=== PATIENT | male | born 1930 | race Caucasian/White ===

== ENCOUNTER 2017-11-30 01:12 | Inpatient (IN) | payer MEDICARE ==
[~2017-11-30] VITALS: Ht 182.9 cm; Wt 80.7 kg
[~2017-11-30 01:12] MED LIST: ACETAMINOPHEN650 M5 PO; ACIDOPHILUS LACT1 GM PO; AMLODIPINE BESYL5 MG PO; APAP500; ASPIR 8181 MG PO; ASPIRIN81 M2 PO; ATORVASTATIN CA40 MG PO; CATHFLO ACT2 MG/VIA1 IV; CEFTRIAXONE2 G1 IVPB; CIPRO500 MG; COLACE100 MG PO; COUMADIN 1MG TAB1 M1 PO; COUMADIN 2 MG TA2 M1 PO; COUMADIN 2.5MG2.5 M1 PO; COUMADIN 3 MG TA3 MG PO; COZAAR 50 MG TA50 M1 PO; DIFLUCAN200 MG IVPB; DIFLUCAN200 MG PO; EFFIENT10 MG PO; ELIQUIS5 MG PO; FENOFIBRATE160 MG PO; FINASTERIDE5 MG PO; FISH OIL 1,0001 EAC5 PO; FISH OIL 1,001000 M2 PO; FUROSEMIDE 20 M20 MG PO; FUROSEMIDE 40 M40 M1 PO; GLUCOPHAGE1000 MG PO; GLUCOPHAGE500 MG PO; HEALTHYLAX17 GM PO; KEFLEX500 MG PO; LEVAQUIN 500 M500 M4 PO; LIPITOR20 MG PO; MAGOX 400400 MG PO; METFORMIN HCL500 MG; METFORMIN HCL500 MG PO; NIACOR500 MG PO; NITROGLYCERIN0.4 MG SUBLING; NORCO 5-325 TA1 EACH PO; NORVASC 5 MG TAB5 MG PO; NORVASC5 MG PO; ONDANSETRON HCL4 M2 PO; PERCOCET PO; PLAVIX 75 MG TA75 M1 PO; PLAVIX 75 MG TA75 MG PO; PROSCAR 5MG TABL5 MG PO; RAPAFLO8 MG PO; ROCEPHIN 1 GM VL1 G1 IVPB; SALINE360 M1 IV PUSH; SIMVASTATIN20 MG PO; SODIUM CHLORIDE10 ML IV PUSH; TAMSULOSIN HCL0.4 MG PO; TOPROL XL25 MG PO; VITAMINC500 PO; Warfarin PO; rocephin IVPB
[2017-11-30 01:14] VITALS: BP 111/47
[2017-11-30] MEDS ORDERED: ASPIR 8181 MG (01:30)
[2017-11-30] MEDS ORDERED: FISH OIL 1,001000 M2 (01:30)
[2017-11-30] MEDS ORDERED: IRON325 PO (01:33)
[2017-11-30 01:39] LABS: URINE BILIRUBIN NEGATIVE (Negative); URINE BLOOD TRACE (Negative); URINE CLARITY CLEAR; URINE COLOR YELLOW; URINE GLUCOSE-RANDOM NEGATIVE (Negative); URINE KETONES NEGATIVE (Negative); URINE LEUKOCYTES-REFLEX TRACE (Negative); URINE NITRITE-REFLEX NEGATIVE (Negative); URINE PROTEIN NEGATIVE (Negative); URINE SPECIFIC GRAVITY 1.025 (1.005-1.030); URINE UROBILINOGEN 0.2 E.U./dl (0.2-1.0)
[2017-11-30 02:07] LABS: ANION GAP 8 mmol/L (7-16); BUN 30 mg/dL (7-18); CALCIUM 8.4 mg/dL (8.5-10.1); CHLORIDE 105 mmol/L (98-107); CO2 27 mmol/L (21-32); CREATININE 1.5 mg/dL (0.6-1.3); GLUCOSE 143 mg/dL (70-99); POTASSIUM 4.2 mmol/L (3.5-5.1); SODIUM 140 mmol/L (136-145)
[2017-11-30 02:10] LABS: HEMATOCRIT 36.8 % (42.0-52.0); HEMOGLOBIN 12.1 gm/dL (14.0-18.0); MCH 30.1 pg (26.0-34.0); MCHC 32.9 g/dL (28.0-37.0); MCV 91.5 fL (80.0-100.0); MPV 7.4 fl. (7.2-11.1); NUCLEATED RBCS 0 /100WBC; PLATELET COUNT* 164 thou/uL (150-400); RBC 4.03 mil/uL (4.50-6.00); RDW-CV 16.4 % (10.5-14.5); WBC 13.8 thou/uL (4.0-11.0)
[2017-11-30 02:11] LABS: INR 3.9; PROTIME 37.5 Seconds (9.20-11.50)
[2017-11-30 02:18] LABS: ALBUMIN 2.8 g/dL (3.4-5.0); ALKALINE PHOSPHATASE 56 U/L (46-116); LIPASE 177 U/L (73-393); NT-PRO BRAIN NAT PEPTIDE 5600 pg/mL (<300); SGOT 33 U/L (15-37); SGPT 23 U/L (30-65); TOTAL BILIRUBIN 0.6 mg/dL (<0.1-1.0); TOTAL PROTEIN 6.5 g/dL (6.4-8.2); TROPONIN-I LEVEL <0.06 ng/mL (<0.06)
[2017-11-30 03:05] LABS: CASTS None Seen /LPF (None Seen); SQUAMOUS 4-10 Moderate /LPF (0-3)
[2017-11-30 03:06] LABS: CRYSTALS None Seen /LPF (None Seen); URINE RBC 3-10 Few /HPF (0-2); URINE WBC-REFLEX 0-5 Rare /HPF (0-5)
[2017-11-30 03:34] LABS: ABSOLUTE EOSINOPHILS 0.1 thou/uL (0.0-0.7); ABSOLUTE LYMPHOCYTES 0.8 thou/uL (0.8-5.3); ABSOLUTE MONOCYTES 0.6 thou/uL (0.0-1.2); ABSOLUTE NEUTROPHILS 12.3 thou/uL (1.6-8.1)
[2017-11-30 03:35] LABS: PLATELET ESTIMATE ADEQUATE
[2017-11-30 08:58] VITALS: BP 111/54
[2017-11-30 09:56] VITALS: BP 110/51
--- NOTE | 2017-11-30 10:14 | EKG ---
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 : 1930 Requested By: Nicol Lyles Order Number: [id number] MD: Tony Cole Measurements Intervals [place] Rate: 60 P: 0 AL: 78 QRS: -79 QRSD: 204 T: 99 QT: 468 QTc: 468 Interpretive Statements Ventricular-paced rhythm No further analysis attempted due to paced rhythm Baseline wander in lead(s) V3 Compared to ECG 12/29/2015 12:54:45 rate increased Electronically Signed On 11-30-2017 10:14:00 CDT by Tony Cole [email or web address] <ELECTRONICALLY SIGNED> By: Toyn Cole MD, [facility] 11/30/17 1014 0145 0145 Tony Cole MD, [facility] /EPI
[2017-11-30 12:08] VITALS: BP 99/61
[2017-11-30 15:57] VITALS: BP 85/45
[2017-11-30 20:09] VITALS: BP 102/54
[2017-12-01] VITALS: BP 111/50
[2017-12-01 03:57] VITALS: BP 120/51
[2017-12-01 05:33] LABS: ABSOLUTE LYMPHOCYTES 0.4 thou/uL (0.8-5.3); ABSOLUTE MONOCYTES 0.5 thou/uL (0.0-1.2); ABSOLUTE NEUTROPHILS 5.7 thou/uL (1.6-8.1); BASOPHILS 0.3 %; EOSINOPHILS 0.2 %; HEMATOCRIT 32.6 % (42.0-52.0); HEMOGLOBIN 10.8 gm/dL (14.0-18.0); LYMPHOCYTES 6.2 %; MCH 30.8 pg (26.0-34.0); MCHC 33.3 g/dL (28.0-37.0); MCV 92.8 fL (80.0-100.0); MONOCYTES 7.7 %; MPV 7.9 fl. (7.2-11.1); NUCLEATED RBCS 0 /100WBC; PLATELET COUNT* 113 thou/uL (150-400); POLYS 85.6 %; RBC 3.51 mil/uL (4.50-6.00); RDW-CV 16.8 % (10.5-14.5); WBC 6.6 thou/uL (4.0-11.0)
[2017-12-01 05:44] LABS: PREALBUMIN 11.3 mg/dL (18.0-35.7)
[2017-12-01 05:48] LABS: PROTIME 52.2 Seconds (9.20-11.50)
[2017-12-01 05:57] LABS: CALCIUM 7.9 mg/dL (8.5-10.1); CREATININE 1.6 mg/dL (0.6-1.3)
[2017-12-01 06:06] LABS: INR 5.5
[2017-12-01 08:45] VITALS: BP 122/50
--- NOTE | 2017-12-01 10:57 | CON ---
[address] [address] CONSULTATION Name: NIKKOKEVIN F Room: [address] IN M.R.#: [id number] Admission: 11/30/17 Attend Phys: Shelly Cid MD Discharge: Date of : 32 Report #: [id number] THIS REPORT FOR: //name// CC: Shelly Keys DATE OF SERVICE: 11/30/2017 INFECTIOUS CONSULTATION ATTENDING PHYSICIAN: Dr. Cid. REASON FOR EVALUATION: Deep infection, right foot. HISTORY OF PRESENT ILLNESS: Chart reviewed, patient examined. This is an 87-year-old gentleman with diabetes mellitus type 2 who I have seen in the past. Apparently, he was doing fairly well; however, developed an ulceration involving the right foot plantar aspect over the course of the last 24 hours prior to his admission, increasing inflammation noted. He did have one episode of emesis and progressive weakness. He had some chills, although has not evidently had fevers, history of diabetic foot ulcers. Due to the rapidity of its progression, he was admitted, placed on ceftriaxone, vancomycin and levofloxacin. ALLERGIES: PENICILLINS, BERYL INHIBITOR. MEDICATIONS: Include tamsulosin, vancomycin, metformin, aspirin, fish oil, furosemide, atorvastatin, ascorbic acid, metoprolol, finasteride, fenofibrate, pantoprazole. PAST MEDICAL HISTORY: Includes diabetes mellitus. This is complicated by vasculopathy, has previous stroke, known coronary artery disease, has a pacemaker, diabetic foot ulcers in the past. SOCIAL HISTORY: Former smoker. No ethanol. FAMILY HISTORY: Noncontributory. REVIEW OF SYSTEMS: As above. Significant pulmonary-related complaints. PHYSICAL EXAMINATION: GENERAL: He is experiencing mtgn-fj-[id number] distress, appears mildly tachypneic. He is somewhat chronically ill appearing, perhaps mildly undernourished. VITAL SIGNS: Temperature 98.3, T-max was 99.6, pulse 71, respirations 20, blood pressure 110/51[place] [address] CONSULTATION Name: KEVIN EL Room: [address] IN [facility]#: [id number] Admission: 11/30/17 Attend Phys: Shelly Cid MD Discharge: Date of : 32 Report #: [id number] SKIN: Warm, dry, no rashes. HEENT: Otherwise, unremarkable. LUNGS: Diminished breath sounds. HEART: Regular. I do not appreciate murmur. ABDOMEN: Soft, nontender, nondistended. EXTREMITIES: Dressing in place over the right foot. I have access to photographs, showed the plantar ulcer with several centimeters with marginal surface, moderate degree of inflammation. He ended up with open ulcer. GENITOURINARY AND RECTAL: Deferred. LABORATORY DATA: Plain film of the foot, no acute osseous abnormalities. Left basilar atelectasis, rate of 35. CRP rate of 40.5. CBC: White count 13.8, H and H 12.1 and 36.8, platelets of 164. Urinalysis, 0-5 white cells, 10-30 bacteria. Lactic acid 1.9. Electrolytes: Sodium 140, potassium 4.2, chloride 105, bicarbonate is 27, BUN and creatinine 30 and 1.5, glucose of 143. LFTs unremarkable. Albumin of 28. Total protein 6.5. Estimated GFR 44. ASSESSMENT: Tracing skin and soft tissue infection involving the plantar aspect of the right foot in the setting of diabetes mellitus. I would expect an superficial deep type progression outside . There is no evidence of hard tissue infection. At this point, we will continue empiric therapy, he has had some bedside partial debridement. We will continue to monitor expectantly. He may well need additional intervention, mindful of risk of nosocomial related infectious complications as well. I encouraged incentive spirometer to optimize his nutritional status, monitor expectantly. <ELECTRONICALLY SIGNED> By: Aidan Eaton MD 12/01/17 1057 1517 1909Jothao Eaton MD /nt
[2017-12-01 12:00] VITALS: BP 134/67
[2017-12-01 12:57] LABS: PROTIME 56.1 Seconds (9.20-11.50)
[2017-12-01 13:00] LABS: INR 5.9
[2017-12-01 16:00] VITALS: BP 105/46
[2017-12-01 20:30] VITALS: BP 140/60
[2017-12-02] VITALS (7 sets, daily range): BP systolic 106–147; BP diastolic 49–74
[2017-12-02 05:17] LABS: ABSOLUTE EOSINOPHILS 0.1 thou/uL (0.0-0.7); ABSOLUTE LYMPHOCYTES 0.5 thou/uL (0.8-5.3); ABSOLUTE MONOCYTES 0.6 thou/uL (0.0-1.2); ABSOLUTE NEUTROPHILS 6.3 thou/uL (1.6-8.1); BASOPHILS 0.5 %; EOSINOPHILS 0.9 %; HEMATOCRIT 33.3 % (42.0-52.0); HEMOGLOBIN 11.1 gm/dL (14.0-18.0); LYMPHOCYTES 6.5 %; MCHC 33.2 g/dL (28.0-37.0); MCV 93.2 fL (80.0-100.0); MONOCYTES 8.6 %; NUCLEATED RBCS 0 /100WBC; PLATELET COUNT* 123 thou/uL (150-400); POLYS 83.5 %; RBC 3.57 mil/uL (4.50-6.00); RDW-CV 16.6 % (10.5-14.5); WBC 7.5 thou/uL (4.0-11.0)
[2017-12-02 05:27] LABS: PROTIME 55.5 Seconds (9.20-11.50)
[2017-12-02 05:31] LABS: ALBUMIN 2.3 g/dL (3.4-5.0); CREATININE 1.5 mg/dL (0.6-1.3); POTASSIUM 3.9 mmol/L (3.5-5.1); TOTAL BILIRUBIN 0.4 mg/dL (<0.1-1.0); TOTAL PROTEIN 5.7 g/dL (6.4-8.2)
[2017-12-02 05:44] LABS: INR 5.9
[2017-12-03] VITALS: BP 118/58
[2017-12-03 04:00] VITALS: BP 123/64
[2017-12-03 06:05] LABS: ABSOLUTE EOSINOPHILS 0.3 thou/uL (0.0-0.7); ABSOLUTE LYMPHOCYTES 0.8 thou/uL (0.8-5.3); ABSOLUTE MONOCYTES 0.6 thou/uL (0.0-1.2); ABSOLUTE NEUTROPHILS 5.7 thou/uL (1.6-8.1); BASOPHILS 0.6 %; EOSINOPHILS 3.9 %; HEMOGLOBIN 10.9 gm/dL (14.0-18.0); LYMPHOCYTES 10.7 %; MCH 30.3 pg (26.0-34.0); MCV 91.6 fL (80.0-100.0); MONOCYTES 8.6 %; MPV 8.3 fl. (7.2-11.1); NUCLEATED RBCS 0 /100WBC; PLATELET COUNT* 128 thou/uL (150-400); POLYS 76.2 %; RDW-CV 16.7 % (10.5-14.5); WBC 7.4 thou/uL (4.0-11.0)
[2017-12-03 06:11] LABS: PROTIME 38.7 Seconds (9.20-11.50)
[2017-12-03 07:28] LABS: INR 4.1
[2017-12-03 07:53] LABS: ALBUMIN 2.4 g/dL (3.4-5.0); CREATININE 1.5 mg/dL (0.6-1.3); POTASSIUM 3.6 mmol/L (3.5-5.1); TOTAL BILIRUBIN 0.7 mg/dL (<0.1-1.0); TOTAL PROTEIN 5.3 g/dL (6.4-8.2)
[2017-12-03 08:25] VITALS: BP 134/54
[2017-12-03 11:35] VITALS: BP 104/62
[2017-12-03 17:06] VITALS: BP 135/54
[2017-12-03 20:00] VITALS: BP 138/51
[2017-12-04] VITALS: BP 128/61
[2017-12-04 04:00] VITALS: BP 125/60
[2017-12-04 04:50] LABS: HEMATOCRIT 33.7 % (42.0-52.0); HEMOGLOBIN 11.4 gm/dL (14.0-18.0); MCH 30.6 pg (26.0-34.0); MCHC 33.9 g/dL (28.0-37.0); MCV 90.2 fL (80.0-100.0); RBC 3.73 mil/uL (4.50-6.00); RDW-CV 16.3 % (10.5-14.5); WBC 8.6 thou/uL (4.0-11.0)
[2017-12-04 04:57] LABS: INR 3.6; PROTIME 34.1 Seconds (9.20-11.50)
[2017-12-04 05:03] LABS: ALBUMIN 2.6 g/dL (3.4-5.0); CREATININE 1.5 mg/dL (0.6-1.3); MAGNESIUM 1.6 mg/dL (1.8-2.4); POTASSIUM 3.6 mmol/L (3.5-5.1); TOTAL BILIRUBIN 1.1 mg/dL (<0.1-1.0)
[2017-12-04 08:05] VITALS: BP 135/63
[2017-12-04 11:54] LABS: CREATININE 1.5 mg/dL (0.6-1.3); MAGNESIUM 1.6 mg/dL (1.8-2.4); POTASSIUM 3.4 mmol/L (3.5-5.1)
[2017-12-04 11:58] LABS: CALCIUM 8.2 mg/dL (8.5-10.1)
[2017-12-04 12:25] VITALS: BP 127/52
[2017-12-04 16:37] VITALS: BP 134/71
[2017-12-04 20:00] VITALS: BP 126/48
[2017-12-05 00:04] VITALS: BP 102/34
[2017-12-05 04:00] VITALS: BP 127/53
[2017-12-05 05:36] LABS: HEMATOCRIT 28.3 % (42.0-52.0); HEMOGLOBIN 9.6 gm/dL (14.0-18.0); MCH 30.6 pg (26.0-34.0); MCHC 33.8 g/dL (28.0-37.0); MCV 90.4 fL (80.0-100.0); MPV 7.8 fl. (7.2-11.1); RBC 3.13 mil/uL (4.50-6.00); RDW-CV 16.5 % (10.5-14.5); WBC 8.4 thou/uL (4.0-11.0)
[2017-12-05 05:50] LABS: CALCIUM 8.4 mg/dL (8.5-10.1); CREATININE 1.3 mg/dL (0.6-1.3); MAGNESIUM 1.8 mg/dL (1.8-2.4); POTASSIUM 3.5 mmol/L (3.5-5.1)
[2017-12-05 08:00] VITALS: BP 138/91
[2017-12-05 11:30] VITALS: BP 120/53
[2017-12-05 15:39] VITALS: BP 125/51
[2017-12-05 20:00] VITALS: BP 123/71
[2017-12-06 00:53] VITALS: BP 120/52
[2017-12-06 04:13] VITALS: BP 141/61
[2017-12-06 05:10] LABS: ALBUMIN 2.1 g/dL (3.4-5.0); CALCIUM 8.2 mg/dL (8.5-10.1); CREATININE 1.4 mg/dL (0.6-1.3); POTASSIUM 3.7 mmol/L (3.5-5.1); TOTAL BILIRUBIN 1.2 mg/dL (<0.1-1.0); TOTAL PROTEIN 5.6 g/dL (6.4-8.2)
[2017-12-06 05:15] LABS: ABSOLUTE EOSINOPHILS 0.4 thou/uL (0.0-0.7); ABSOLUTE LYMPHOCYTES 1.1 thou/uL (0.8-5.3); ABSOLUTE MONOCYTES 0.8 thou/uL (0.0-1.2); ABSOLUTE NEUTROPHILS 7.4 thou/uL (1.6-8.1); BASOPHILS 0.5 %; EOSINOPHILS 3.8 %; HEMATOCRIT 29.5 % (42.0-52.0); HEMOGLOBIN 9.9 gm/dL (14.0-18.0); LYMPHOCYTES 11.5 %; MCH 30.4 pg (26.0-34.0); MCHC 33.7 g/dL (28.0-37.0); MCV 90.3 fL (80.0-100.0); MONOCYTES 8.6 %; MPV 7.9 fl. (7.2-11.1); NUCLEATED RBCS 0 /100WBC; PLATELET COUNT* 188 thou/uL (150-400); POLYS 75.6 %; RBC 3.27 mil/uL (4.50-6.00); RDW-CV 16.5 % (10.5-14.5); WBC 9.8 thou/uL (4.0-11.0)
[2017-12-06 05:18] LABS: INR 2.5; PROTIME 23.6 Seconds (9.20-11.50)
[2017-12-06 08:00] VITALS: BP 149/47
[2017-12-06 11:33] VITALS: BP 124/60
[2017-12-06] MEDS ORDERED: LEVAQUIN 500 M500 M2 PO (15:57)
[2017-12-06] MEDS ORDERED: MINOCIN100 MG PO (15:58)
[2017-12-06] MEDS ORDERED: DUONEB 2.5-0.5 M3 ML INH (16:03)
--- NOTE | 2017-12-07 09:47 | CON ---
[address] [address] CONSULTATION Name: NIKKOKEVIN F Room: [address]R.#: [id number] Admission: 11/30/17 Attend Phys: Shelly Cid MD Discharge: 12/06/17 Date of : 32 Report #: [id number] THIS REPORT FOR: //name// CC: Shelly Keys DICTATED BY: Xiao PERALTA DATE OF SERVICE: 11/30/2017 REASON FOR CONSULTATION: Peripheral artery disease, right diabetic foot wound. HISTORY OF PRESENT ILLNESS: The patient is a very pleasant 87-year-old male, who is well known to our practice, with history of peripheral artery disease, diabetes mellitus, diabetic neuropathy with history of diabetic foot wounds. He has been treated in the [facility] by Dr. Davenport as well as Dr. Bruce. He underwent incision and drainage of the right foot in 03/2014, ultimately ended up requiring a right great toe and first ray amputation on 04/26/[address] Ever Bruce. He also underwent a right lower extremity arteriogram in 03/[address] Ever Bruce, with right superficial femoral artery angioplasty. He developed a new ulcer on the right lower extremity; therefore, underwent a repeat right lower extremity arteriogram on 04/13/2016 with atherectomy, angioplasty and stenting at the right superficial femoral artery with angioplasty and stenting of the popliteal artery. He also has a history of a left femoral to tibial artery bypass by Dr. Bruce. Followup arterial studies obtained in our outpatient office on 06/27/2017 demonstrated an JEFF of 0.59 on the right, 0.61 on the left with a patent femoral to popliteal artery bypass on the left. Annual followup was recommended at that time. He reports, on Tuesday evening he developed erythema of the right foot. His reports she puts lotion on his feet daily and examines his feet. She reports they did a lot of walking and while shopping yesterday, which caused worsening of the wound on the plantar aspect of his right foot. He developed chills as well as nausea overnight; therefore, presented to the Emergency Room for further evaluation and treatment this morning. He continues to complain of chills, no current nausea. He denies any pain in his feet. He denies any claudication type symptoms with ambulation. We have been asked to evaluate the patient for ongoing management of his peripheral artery disease as well as evaluation of his new right diabetic foot wounds. PAST MEDICAL HISTORY: 1. Peripheral artery disease. 2. Diabetes mellitus. 3. Diabetic foot wounds. 4. Atrial fibrillation. 5. Chronic lower extremity edema, for which he wears compression stockings. 6. [place] [address] CONSULTATION Name: NIKKO,KEVIN F Room: [address]#: [id number] Admission: 11/30/17 Attend Phys: Shelly Cid MD Discharge: 12/06/17 Date of : 32 Report #: [id number]. History of sepsis. 8. Coronary artery disease. 9. Hypertension. 10. Hyperlipidemia. PAST SURGICAL HISTORY: 1. Kidney stone removal. 2. Coronary artery stent placement. 3. Right foot debridement with ultimate right great toe amputation. 4. Right lower extremity arteriogram with SFA angioplasty in 03/2014. 5. Right lower extremity arteriogram with right SFA atherectomy, angioplasty, and stenting; popliteal angioplasty and stenting in 03/2016. 6. Left femoral to tibial artery bypass. 7. Pacemaker placement. SOCIAL HISTORY: He is former smoker, he is , lives with his spouse. He denies any alcohol or illicit drug use. FAMILY HISTORY: Noncontributory due to his advanced age. ALLERGIES: 1. BERYL INHIBITORS. 2. PENICILLIN. HOME MEDICATIONS: 1. Mag ox 400 mg daily. 2. Nitrostat 0.4 mg sublingually as needed for chest pain. 3. Glucophage 500 mg twice daily. 4. Furosemide 20 mg daily. 5. Coumadin as directed by INR. 6. Fish oil 1000 mg daily. 7. Tamsulosin 0.4 mg at bedtime. 8. Fenofibrate 160 mg daily. 9. Finasteride 5 mg daily. 10. Lopressor 25 mg twice daily. 11. Fish oil 1000 mg daily. 12. Aspirin 81 mg daily. 13. Iron 65 mg daily. 14. Vitamin C 500 mg daily. 15. Lipitor 40 mg daily. REVIEW OF SYSTEMS: A 12-point review of systems has been reviewed and is negative except for the above-mentioned in the history of present illness. PHYSICAL EXAMINATION: VITAL SIGNS: Temperature 36.9, heart rate 71, respiratory rate 16, blood [facility] [address] [place] [address] CONSULTATION Name: KEVIN EL [facility] IN [place]#: [id number] Admission: 11/30/17 Attend Phys: Shelly Cid MD Discharge: 12/06/17 Date of : 32 Report #: [id number] pressure 110/51, oxygen saturation is 100% on 2 liters per nasal cannula. GENERAL: He is alert and oriented, in no acute distress. HEENT: Head is normocephalic, atraumatic. NECK: Supple, without jugular venous distention or carotid bruit. HEART: He has distant heart tones, regular rate and rhythm. CHEST: Lungs are diminished. No wheezing or rhonchi noted, symmetrical expansion, no distress. ABDOMEN: Soft, nontender, hypoactive bowel sounds. EXTREMITIES: Palpable bilateral radial and femoral pulses with dopplerable bilateral posterior tibialis and dorsalis pedis pulses. He has a well-healed right great toe amputation. There is a wound on the plantar aspect of the right foot that is fairly superficial, scant drainage with a slight foul odor. There is a very superficial wound on the right medial lower leg that is healing well. He has chronic hemosiderin staining to bilateral lower extremities. NEUROLOGIC: He has insensate feet. Otherwise, no focal neurologic deficits. LABORATORY DATA: Hemoglobin 12.1, hematocrit 36.8, white blood cell count 13.8, platelets 164. Sodium 140, potassium 4.2, chloride 105, CO2 27, BUN 30, creatinine 1.5, glucose 100. ASSESSMENT AND PLAN: 1. Peripheral artery disease with a history of right lower extremity revascularization as well as a left femoral to popliteal artery bypass. We will obtain arterial ultrasounds as well as ABIs to evaluate his arterial perfusion and wound healing potential. 2. Right diabetic foot ulcer. Local wound care has been ordered. He needs to offload, heel weightbearing only on the right with ambulation. X-rays were reviewed, no apparent osteomyelitis, no tunneling noted. 3. Diabetes mellitus. 4. Coronary artery disease. I thank you for the opportunity to participate in the care of the patient. Please feel free to contact our office with any questions or concerns. <ELECTRONICALLY SIGNED> By: Ever Bruce DO 12/07/17 0947 1150 [id number] Bruce DO /nt
[2017-12-27] MEDS ORDERED: COUMADIN 2 MG TA2 M1 PO (13:54)
[2017-12-27] MEDS ORDERED: ASPIR 8181 MG PO (13:55)
[2017-12-27] MEDS ORDERED: B12INJ IM (13:56)
== END 2017-12-06 16:21 | DRG 871 ==
LOC: M.ERS 01:12 → M.TBA-ER 04:25 → M.2W 09:14
PROVIDERS: Emergency Medicine; Family Medicine; Internal Medicine; ADMIT Internal Medicine
PROC: 02HV33Z Insertion of Infusion Device into Superior Vena Cava, Percutaneous Approach (ICD-10-PCS; principal; 2017-11-30)
DX: A41.9 Sepsis, unspecified organism (principal); I50.33 Acute on chronic diastolic (congestive) heart failure; J18.9 Pneumonia, unspecified organism; N17.9 Acute kidney failure, unspecified; L03.90 Cellulitis, unspecified; I13.0 Hypertensive heart and chronic kidney disease with heart failure and stage 1 through stage 4 chronic kidney disease, or unspecified chronic kidney disease; E44.0 Moderate protein-calorie malnutrition; S36.62XA Contusion of rectum, initial encounter; J44.0 Chronic obstructive pulmonary disease with (acute) lower respiratory infection; I25.10 Atherosclerotic heart disease of native coronary artery without angina pectoris; E11.621 Type 2 diabetes mellitus with foot ulcer; E11.22 Type 2 diabetes mellitus with diabetic chronic kidney disease; N18.9 Chronic kidney disease, unspecified; E11.51 Type 2 diabetes mellitus with diabetic peripheral angiopathy without gangrene; I48.91 Unspecified atrial fibrillation; E78.5 Hyperlipidemia, unspecified; L97.519 Non-pressure chronic ulcer of other part of right foot with unspecified severity; E83.42 Hypomagnesemia; X58.XXXA Exposure to other specified factors, initial encounter; Z88.0 Allergy status to penicillin; Z79.899 Other long term (current) drug therapy; Z86.73 Personal history of transient ischemic attack (TIA), and cerebral infarction without residual deficits; Z95.0 Presence of cardiac pacemaker; Z87.891 Personal history of nicotine dependence; Z79.01 Long term (current) use of anticoagulants; Z95.5 Presence of coronary angioplasty implant and graft; Z79.82 Long term (current) use of aspirin; Z68.24 Body mass index [BMI] 24.0-24.9, adult; Y93.89 Activity, other specified; Y92.89 Other specified places as the place of occurrence of the external cause; Y99.8 Other external cause status

== ENCOUNTER → 2017-12-07 | Outpatient (CLI) | payer MEDICARE ==
[~2017-12-07] MED LIST changes: +ASPIR 8181 MG; +B12INJ IM; +COZAAR 25 MG TA25 M2 PO; +DUONEB 2.5-0.5 M3 ML INH; +EPOGEN10000 UNIT HEMODIALYS; +EPOGEN10000 UNIT IV PUSH; +FISH OIL 1,001000 M2; +FLOMAX0.4 MG PO; +HUMALOG100 UNIT/1 SUBQ; +HYDRALAZINE 10M10 MG IV PUSH; +IRON325 PO; +LEVAQUIN 500 M500 M2 PO; +MAPAP325 MG PO; +MINOCIN100 MG PO; +MIRALAX17 GM PO; +NEPHROCAPS SOFT1 CAP PO; +PROTONIX40 M1 PO; +REMERON15 MG PO; +RENVELA800 MG PO; +THERAGRAN-M PR1 EAC1 PO; +TYLENOL325 MG PO; +VANCOMYCIN500 MG/VIA IV
== END ==
LOC: M.WC 08:00
DX: S81.811A Laceration without foreign body, right lower leg, initial encounter (principal); S81.812A Laceration without foreign body, left lower leg, initial encounter; E11.621 Type 2 diabetes mellitus with foot ulcer; L97.511 Non-pressure chronic ulcer of other part of right foot limited to breakdown of skin; E11.51 Type 2 diabetes mellitus with diabetic peripheral angiopathy without gangrene; I25.10 Atherosclerotic heart disease of native coronary artery without angina pectoris; I11.0 Hypertensive heart disease with heart failure; E50.9 Vitamin A deficiency, unspecified; E78.5 Hyperlipidemia, unspecified; Z89.422 Acquired absence of other left toe(s); Z89.421 Acquired absence of other right toe(s); Z95.0 Presence of cardiac pacemaker; X58.XXXA Exposure to other specified factors, initial encounter; Y93.89 Activity, other specified; Y92.89 Other specified places as the place of occurrence of the external cause; Y99.8 Other external cause status

== ENCOUNTER → 2017-12-14 | Outpatient (CLI) | payer MEDICARE | LOC: M.WC 03:05 | DX: E11.621 Type 2 diabetes mellitus with foot ulcer (principal); L97.511 Non-pressure chronic ulcer of other part of right foot limited to breakdown of skin; S81.812D Laceration without foreign body, left lower leg, subsequent encounter; S81.811D Laceration without foreign body, right lower leg, subsequent encounter; E11.51 Type 2 diabetes mellitus with diabetic peripheral angiopathy without gangrene; I11.0 Hypertensive heart disease with heart failure; I50.9 Heart failure, unspecified; I25.10 Atherosclerotic heart disease of native coronary artery without angina pectoris; E78.5 Hyperlipidemia, unspecified; Z95.0 Presence of cardiac pacemaker; Z89.411 Acquired absence of right great toe; Z89.421 Acquired absence of other right toe(s); X58.XXXD Exposure to other specified factors, subsequent encounter ==

== ENCOUNTER 2017-12-21 12:12 | Observation (INO) | payer MEDICARE ==
[2017-12-21] VITALS (12 sets, daily range): BP systolic 112–139; BP diastolic 48–69
[~2017-12-21] VITALS: Ht 182.9 cm; Wt 74.4 kg
[~2017-12-21 12:12] MED LIST changes: -B12INJ IM; -COZAAR 25 MG TA25 M2 PO; -EPOGEN10000 UNIT HEMODIALYS; -EPOGEN10000 UNIT IV PUSH; -FLOMAX0.4 MG PO; -HUMALOG100 UNIT/1 SUBQ; -HYDRALAZINE 10M10 MG IV PUSH; -MAPAP325 MG PO; -MIRALAX17 GM PO; -NEPHROCAPS SOFT1 CAP PO; -PROTONIX40 M1 PO; -REMERON15 MG PO; -RENVELA800 MG PO; -THERAGRAN-M PR1 EAC1 PO; -TYLENOL325 MG PO; -VANCOMYCIN500 MG/VIA IV
[2017-12-21 13:29] LABS: ABSOLUTE EOSINOPHILS 0.2 thou/uL (0.0-0.7); ABSOLUTE LYMPHOCYTES 1.2 thou/uL (0.8-5.3); ABSOLUTE MONOCYTES 0.9 thou/uL (0.0-1.2); ABSOLUTE NEUTROPHILS 6.8 thou/uL (1.6-8.1); BASOPHILS 0.5 %; EOSINOPHILS 1.7 %; HEMATOCRIT 38.5 % (42.0-52.0); HEMOGLOBIN 13.1 gm/dL (14.0-18.0); LYMPHOCYTES 13.5 %; MCH 30.8 pg (26.0-34.0); MCHC 34.2 g/dL (28.0-37.0); MONOCYTES 9.7 %; NUCLEATED RBCS 0 /100WBC; PLATELET COUNT* 211 thou/uL (150-400); POLYS 74.6 %; RBC 4.27 mil/uL (4.50-6.00); RDW-CV 16.3 % (10.5-14.5); WBC 9.1 thou/uL (4.0-11.0)
[2017-12-21 13:34] LABS: CALCIUM 9.2 mg/dL (8.5-10.1); CREATININE 1.9 mg/dL (0.6-1.3); POTASSIUM 3.8 mmol/L (3.5-5.1)
[2017-12-21 13:37] LABS: APTT 39.2 Seconds (25.0-31.3); INR 2.6; PROTIME 25.4 Seconds (9.20-11.50)
[2017-12-22] VITALS (9 sets, daily range): BP systolic 106–139; BP diastolic 61–73
[2017-12-22 04:46] LABS: HEMATOCRIT 31.9 % (42.0-52.0); MCH 30.6 pg (26.0-34.0); MCHC 33.5 g/dL (28.0-37.0); MCV 91.3 fL (80.0-100.0); MPV 7.2 fl. (7.2-11.1); RBC 3.49 mil/uL (4.50-6.00); RDW-CV 16.4 % (10.5-14.5); WBC 9.5 thou/uL (4.0-11.0)
[2017-12-22 04:59] LABS: CALCIUM 8.1 mg/dL (8.5-10.1); CREATININE 1.7 mg/dL (0.6-1.3); POTASSIUM 3.5 mmol/L (3.5-5.1)
[2017-12-22 05:03] LABS: HEMOGLOBIN 10.7 gm/dL (14.0-18.0)
[2017-12-27] MEDS ORDERED: COUMADIN 2 MG TA2 M1 PO (13:54)
[2017-12-27] MEDS ORDERED: ASPIR 8181 MG PO (13:55)
[2017-12-27] MEDS ORDERED: B12INJ IM (13:56)
--- NOTE | 2018-02-15 08:58 | OP ---
[address] [address] OPERATIVE REPORT Name: KEVIN EL Room: [address] Ching#: [id number] Admission: 12/21/17 Attend Phys: Ethan Katz Discharge: 12/22/17 Date of : 32 Report #: [id number] THIS REPORT FOR: //name// CC: Ever Car DATE OF SERVICE: 12/21/2017 PREOPERATIVE DIAGNOSIS: Peripheral vascular disease and gangrene, right lower extremity. POSTOPERATIVE DIAGNOSIS: Peripheral vascular disease and gangrene, right lower extremity. SURGEON: Ever Bruce DO COMFORT FILLER: None. PROCEDURES: 1. Ultrasound-guided access, left common femoral artery. 2. Aortogram. 3. Right lower extremity angiogram catheter position third order. 4. Atherectomy, right superficial femoral artery, popliteal artery and tibial vessels. 5. Retrograde posterior tibial access with attempted retrograde Crosser atherectomy. 6. Angioplasty of popliteal artery. 7. Limited angiogram, left common femoral artery. 8. Angio-Seal closure, left common femoral artery. ANESTHESIA: Moderate sedation. ESTIMATED BLOOD LOSS: Minimal. SPECIMEN: None. COMPLICATIONS: None. CONDITION: Stable. DISPOSITION: Home. INDICATIONS FOR THE PROCEDURE AND CONSENT: The patient is an 87-year-old male well known to dc for severe peripheral vascular disease bilaterally, multiple ulcers, which have healed in the past with intervention. The patient returns [facility] [address] [place] [address] OPERATIVE REPORT Name: KEVIN EL Room: [address] Dean Flower#: [id number] Admission: 12/21/17 Attend Phys: Ethan Katz Discharge: 12/22/17 Date of : 32 Report #: [id number] with gangrene and wounds on his right lower extremity. His previous popliteal artery stent seems to be occluded. Recommendation for right lower extremity angiogram and possible intervention was made. Risks and benefits were discussed, infection, bleeding, need for additional procedures including bypass, amputation despite intervention, stroke, heart attack, . The patient wished to proceed, was consented and scheduled. PROCEDURE IN DETAIL: After timeout was performed, the patient was placed in supine position with sterile prep and drape of the anterior abdomen, bilateral groins and bilateral thighs. Ultrasound was utilized to identify the left common femoral artery and Seldinger technique was used to place 6-Russian sheath. Glidewire Advantage and UF catheter were advanced in the infrarenal aorta and aortogram performed. The aortogram demonstrated: 1. A small abdominal aortic aneurysm, which was known. 2. The aorta, bilateral common iliac, internal and external iliac arteries appear widely patent without flow limitation or stenosis. They were noted to be somewhat tortuous bilaterally. The Glidewire Advantage and UF catheter were advanced into the right external iliac artery and right lower extremity angiogram performed. This demonstrated the right common femoral artery to be widely patent without flow limitation or stenosis, as was the proximal superficial femoral artery and profunda vessel. Glidewire Advantage was then advanced into the right superficial femoral artery and an up and over 6-Russian sheath advanced into the proximal superficial femoral artery, and 6000 units of heparin was administered. I then obtained dedicated views of the distal superficial femoral artery and popliteal vessel. This demonstrated multiple small collaterals with occlusion of the distal superficial femoral artery, popliteal and down to the origin of the tibioperoneal trunk. The anterior tibial vessel was not visualized. The distal tibial runoff demonstrated small diminutive vessels. The anterior tibial did demonstrate reconstitution distally beginning in the mid calf, as did the posterior tibial. The peroneal artery was not well visualized. I then advanced the seeker Catheter over Glidewire Advantage down to the popliteal occlusion and the Glidewire Advantage was advanced easily down to approximately 2 cm above the popliteal artery stent. This gave a feeling of being intraluminal and I therefore obtained a Seeker catheter, advanced over wire and performed a limited angiogram of this area. This demonstrated the catheter to be in the true lumen with visualization of the large collateral. I then decided that a Crosser atherectomy from this point would be beneficial to crossing the complete total occlusion. The Usher catheter and Crosser device advanced to this point and activated. It did advance very readily into the distal popliteal above the tibioperoneal trunk. Repeat angiography through the Usher catheter demonstrated the tibioperoneal trunk, but there appeared to be [place] [address] OPERATIVE REPORT Name: KEVIN EL Room: [address] RAMIRO Flower#: [id number] Admission: 12/21/17 Attend Phys: Ethan Katz Discharge: 12/22/17 Date of : 32 Report #: [id number] arterial and main popliteal vein. I attempted to negotiate into the tibioperoneal trunk and using a Seeker catheter and Glidewire Advantage from this point, I was only able to get into a dissection plane. I was able to visualize actually the peroneal vessel very well from this standpoint, but I was not able to negotiate the wire into it. I tried to retract and reimage under magnified views and renegotiated with an 0.018 Glidewire Advantage, but was still unable to do so. Repeat imaging for more proximal advantage point visualized the tibioperoneal trunk and actually the anterior tibial vessel at this point, please see saved images. I made multiple attempts to try and cross this area from above and felt that maybe it would be easier from a retrograde approach. I asked the team to sterilely prep and drape the lower extremity and using ultrasound guidance, I was able to access the right posterior tibial vessel. With a 5-Russian micropuncture sheath, I confirmed true luminal position with arteriography and this again demonstrated excellent retrograde flow into the posterior tibial vessel and the peroneal vessel appeared to be filled from this vantage point and briskly flow. I then obtained the 5-Russian sheath and the Usher catheter and the Crosser device and attempted retrograde crossing. This again advanced quite easily all the way into the distal superficial femoral artery, but imaging demonstrated to be in a dissection plane and not within the true lumen. I then exchanged the 0.018 Glidewire Advantage and attempted to balloon in the area where the wire from above and below cross to see if I could gain access to the true lumen in this way and this was also unsuccessful. Ultimately, I decided that the reopening of the popliteal artery was not possible today and terminated the procedure. I removed the 5-Russian sheath and pressure was held for hemostasis. I then performed a limited angiogram of left common femoral artery. It was noted to be appropriate for Angio-Seal closure. A 6-Russian Angio-Seal was selected and deployed in standard fashion. The patient tolerated the procedure well. All lap, needle and instrument counts correct. Of note, the heparin was redosed every hour with an additional 1000 units of heparin. <ELECTRONICALLY SIGNED> By: Ever Bruce DO 02/15/18 0858 [id number] 1908Ever Bruce DO /nt
== END 2017-12-22 14:59 | disposition home health service (06) ==
LOC: M.INT 12:12 → M.TBA 19:10 → M.2W 19:10
PROVIDERS: Surgery; ADMIT Internal Medicine
DX: I70.261 Atherosclerosis of native arteries of extremities with gangrene, right leg (principal); E11.621 Type 2 diabetes mellitus with foot ulcer; I73.9 Peripheral vascular disease, unspecified; E11.22 Type 2 diabetes mellitus with diabetic chronic kidney disease; N18.3 Chronic kidney disease, stage 3 (moderate); I50.9 Heart failure, unspecified; I48.91 Unspecified atrial fibrillation; D68.59 Other primary thrombophilia; I25.10 Atherosclerotic heart disease of native coronary artery without angina pectoris; I25.2 Old myocardial infarction; M86.9 Osteomyelitis, unspecified; Z89.411 Acquired absence of right great toe; Z89.421 Acquired absence of other right toe(s); Z95.5 Presence of coronary angioplasty implant and graft; Z95.810 Presence of automatic (implantable) cardiac defibrillator; Z87.891 Personal history of nicotine dependence

== ENCOUNTER → 2017-12-28 | Outpatient (CLI) | payer MEDICARE ==
[~2017-12-28] MED LIST changes: +B12INJ IM; +COZAAR 25 MG TA25 M2 PO; +EPOGEN10000 UNIT HEMODIALYS; +EPOGEN10000 UNIT IV PUSH; +FLOMAX0.4 MG PO; +HUMALOG100 UNIT/1 SUBQ; +HYDRALAZINE 10M10 MG IV PUSH; +MAPAP325 MG PO; +MIRALAX17 GM PO; +NEPHROCAPS SOFT1 CAP PO; +PROTONIX40 M1 PO; +REMERON15 MG PO; +RENVELA800 MG PO; +THERAGRAN-M PR1 EAC1 PO; +TYLENOL325 MG PO; +VANCOMYCIN500 MG/VIA IV
== END ==
LOC: M.WC 02:51
DX: E11.621 Type 2 diabetes mellitus with foot ulcer (principal); L97.511 Non-pressure chronic ulcer of other part of right foot limited to breakdown of skin; E11.51 Type 2 diabetes mellitus with diabetic peripheral angiopathy without gangrene; I25.10 Atherosclerotic heart disease of native coronary artery without angina pectoris; E78.5 Hyperlipidemia, unspecified; I11.0 Hypertensive heart disease with heart failure; I50.9 Heart failure, unspecified; Z89.422 Acquired absence of other left toe(s); Z89.421 Acquired absence of other right toe(s); Z95.0 Presence of cardiac pacemaker

== ENCOUNTER 2018-01-05 07:12 | Inpatient (IN) | payer MEDICARE ==
[2018-01-05] VITALS (7 sets, daily range): BP systolic 96–141; BP diastolic 38–76
[~2018-01-05] VITALS: Ht 182.9 cm; Wt 75.7 kg
[~2018-01-05 07:12] MED LIST changes: -COZAAR 25 MG TA25 M2 PO; -EPOGEN10000 UNIT HEMODIALYS; -EPOGEN10000 UNIT IV PUSH; -FLOMAX0.4 MG PO; -HUMALOG100 UNIT/1 SUBQ; -HYDRALAZINE 10M10 MG IV PUSH; -MAPAP325 MG PO; -MIRALAX17 GM PO; -NEPHROCAPS SOFT1 CAP PO; -PROTONIX40 M1 PO; -REMERON15 MG PO; -RENVELA800 MG PO; -THERAGRAN-M PR1 EAC1 PO; -TYLENOL325 MG PO; -VANCOMYCIN500 MG/VIA IV
[2018-01-05 07:40] LABS: APTT 36.5 Seconds (25.0-31.3); INR 1.8; PROTIME 17.4 Seconds (9.20-11.50)
[2018-01-05 13:20] LABS: HEMATOCRIT 25.4 % (42.0-52.0); HEMOGLOBIN 8.6 gm/dL (14.0-18.0)
[2018-01-05 13:24] LABS: CALCIUM 7.9 mg/dL (8.5-10.1); CREATININE 1.2 mg/dL (0.6-1.3); POTASSIUM 3.9 mmol/L (3.5-5.1)
--- NOTE | 2018-01-05 15:17 | OP ---
[facility] [address] [place] [address] OPERATIVE REPORT Name: KEVIN EL Room: [address] IN ..#: [id number] Admission: 01/05/18 Attend Phys: Ethan Katz Discharge: Date of : 32 Report #: [id number] THIS REPORT FOR: //name// CC: Simba Car DATE OF SERVICE: 01/05/2018 PREOPERATIVE DIAGNOSIS: Critical right lower extremity ischemia. POSTOPERATIVE DIAGNOSIS: Critical right lower extremity ischemia. OPERATION: Right femoral to tibioperoneal trunk bypass with cadaveric CryoVein. SURGEON: Simba Travis DO. NURSE GENERAL DUTY: None. ANESTHESIA: General. ESTIMATED BLOOD LOSS: 400 mL. FLUIDS: 1500 crystalloid. URINE OUTPUT: 150 mL. SPECIMENS: None. IMPLANTS: A cadaveric vein in the right leg. COMPLICATIONS: None. FINDINGS: Right common femoral artery was soft good inflow vessel. 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 However, upon arteriotomy and exploration of the vessels intraluminally, there was good backbleeding from the PT and peroneal arteries. After completion of the bypass, he had good multiphasic PT Doppler signal at the ankle. CLINICAL HISTORY: The patient is an 87-year-old man with known severe peripheral vascular disease, been followed in the wound care for nonhealing right lower extremity wounds. He was brought in today for bypass procedure. He has known autogenous conduit, previously had a left lower extremity Cryo[place] [address] OPERATIVE REPORT Name: KEVIN EL Room: [address] IN .R.#: [id number] Admission: 01/05/18 Attend Phys: Ethan Katz Discharge: Date of : 32 Report #: [id number] DESCRIPTION OF PROCEDURE: After informed consent was obtained, the patient was taken to the operating room and placed on the OR bed in supine position. He was administered general anesthesia by the anesthesia team. The right lower extremity was prepped and draped in usual sterile fashion. Full timeout was performed identifying correct patient and procedure. Next, a standard longitudinal medial below knee incision was made. Dissection was carried down through skin and subcutaneous tissues, both sharp and electrocautery. Fascia was incised. The gastrocnemius muscle was reflected posteriorly. The soleus was divided from the tibia. I was able to isolate out the posterior tibial artery. Multiple venous branches were ligated between silk ties and divided. I then further dissected out of the posterior tibial artery and isolated out the tibioperoneal trunk and the peroneal artery and controlled these with Silastic vessel loops in Mcconnell fashion. He recently had an endovascular attempted revascularization which was unsuccessful both antegrade and retrograde direction. There was obvious thrombosed dissection plane. At this point, I heparinized the patient with 5000 units of heparin. I made an arteriotomy in the tibioperoneal trunk extending on the posterior tibial artery. There was good backbleeding from the peroneal and posterior tibial artery. At this point, I occluded the arteries, turned my attention to the right groin, made a transverse incision in the right groin. Dissection was carried down again through skin and subcutaneous tissues, both sharp and electrocautery. The femoral sheath was entered. The femoral artery was circumferentially mobilized proximally and distally and controlled with Silastic vessel loops in Mcconnell fashion. Again, administered at this point an additional 2000 units of heparin. The cadaveric vein was then prepped in the standard fashion as per the club steward's instructions. The vein was trimmed and a vein marinelli was created. I then occluded the femoral artery, made an arteriotomy extended with Mcconnell scissors. I performed end-to-side anastomosis with running 5-0 Prolene suture. Prior to completion of the suture line, the artery was flushed and the vein was flushed as well with heparinized saline. Suture line was completed. The vein was then distended and marked to prevent axial rotation. Counter incision was made in the medial mid thigh. I then tunneled the vein subfascially to the counter incision. I then tunneled it from the counter incision again down to the below knee incision. At this point, I then trimmed the vein to length and tailored distal vein marinelli, performed end-to-side anastomosis with the tibioperoneal trunk and posterior tibial artery with a running 6-0 Prolene suture. Prior to completion of the suture line, the vein was again flushed and the artery was allowed to backbleed. Anastomosis was flushed with heparinized saline. Suture line was completed and flow was restored down the leg. Doppler interrogation confirmed multiphasic signals in the posterior tibial artery and peroneal artery as well. He had good multiphasic posterior tibial artery Doppler signal at the ankle. At this point, I then administered 50 mg protamine to partially reverse the heparin. Once hemostasis was ensured, the wound was irrigated with antibiotic solution. They were closed in multiple layers with 2-0 and 3-0 Vicryl suture and 4-0 Monocryl, skin and Dermabond were applied. [address] [address] OPERATIVE REPORT Name: KEVIN EL Room: [address] IN M.R.#: [id number] Admission: 01/05/18 Attend Phys: Ethan Katz Discharge: Date of : 32 Report #: [id number] All sponge, sharp and instrument counts reported correct x 2. He tolerated the procedure well and was transferred to recovery in stable condition. <ELECTRONICALLY SIGNED> By: Simba Travis DO 01/05/18 1517 1228 [id number] Travis DO /nt
--- NOTE | 2018-01-05 18:40 | NUR ---
PATIENT RESTED MOST OF THE AFTERNOON FOLLOWING FEM-POP PROCEDURE. PATIENT C/O RIGHT HIP PAIN, PAIN MEDICAITON PROVIDED PER MAR. PATIENT FORGETFUL AT TIMES, NOT BASELINE. PATIENT C/O BURNING SENSATION IN RLE. DR. CAREY TO BEDSIDE, REPROFUSION PAIN NOTED TO BE THE PROBLEM. LOW URINE OUTPUT NOTED. BEDSIDE REPORT TO BE GIVEN TO ONCOMING SHIFT
[2018-01-06] VITALS (8 sets, daily range): BP systolic 88–120; BP diastolic 29–69
[2018-01-06 04:21] LABS: ABSOLUTE EOSINOPHILS 0.1 thou/uL (0.0-0.7); ABSOLUTE LYMPHOCYTES 0.8 thou/uL (0.8-5.3); ABSOLUTE NEUTROPHILS 6.4 thou/uL (1.6-8.1); BASOPHILS 0.3 %; EOSINOPHILS 0.8 %; HEMATOCRIT 23.9 % (42.0-52.0); HEMOGLOBIN 8.1 gm/dL (14.0-18.0); LYMPHOCYTES 10.1 %; MCH 31.5 pg (26.0-34.0); MCHC 33.8 g/dL (28.0-37.0); MCV 93.2 fL (80.0-100.0); MONOCYTES 11.6 %; MPV 7.2 fl. (7.2-11.1); NUCLEATED RBCS 0 /100WBC; PLATELET COUNT* 183 thou/uL (150-400); POLYS 77.2 %; RBC 2.57 mil/uL (4.50-6.00); RDW-CV 17.4 % (10.5-14.5); WBC 8.3 thou/uL (4.0-11.0)
[2018-01-06 04:47] LABS: CALCIUM 7.6 mg/dL (8.5-10.1); CREATININE 1.3 mg/dL (0.6-1.3); POTASSIUM 4.1 mmol/L (3.5-5.1)
--- NOTE | 2018-01-06 05:22 | NUR ---
PATIENT PROGRESSING TOWARDS GOALS. RIGHT GROIN SIT INTACT. PULSES PRESENT. ADEQUATE PERFUSION TO EXTREMITIES. BP HAS REMAIND WNL. PT DENIES PAIN/DISCOMFORT. HE WAS ABLE TO SLEEP OVERNIGHT. VITAL SINGS STABLE. NSR. PATIENT HAS NO VOICED CONCERNS. Q2H TURNS, AFEBRILE. AT THIS TIME WILL CONTINUE TO MONITOR CLOSELY.
--- NOTE | 2018-01-06 11:27 | NUR ---
Patient taking po well. denies SOA or Pain. dangled at bedside. transfering to Tele. incisions dry and intact. Gave report to Iqra Vasquez Rn.
--- NOTE | 2018-01-06 18:59 | NUR ---
ASSUMED PT CARE 1200. PT A/O X'S 4. FLAT. VSS. AFEBRILE. VPACED. PT SAT IN CHAIR FOR 1.5 HOURS. DISCUSSED PT GOALS AND ENCOUARGED PT TO SIT FOR DINNER. PT REPORTED HE WANTED TO SIT IN BED. PT REPORTS CHAIR HURTS HIS BACK. PT VOIDING DARK YELLOW URINE. NO C/O PAIN. RIGHT FOOT DRESSING CHANGED. PT HAS OWN SPECIALTY SHOES IN ROOM. SHOES PUT ON PT PER PT REQUEST WHEN GETTING OUT OF BED.
--- NOTE | 2018-01-06 19:45 | NUR ---
AFTERNOON BP NOT ACCURATE.
[2018-01-07] VITALS: BP 105/44
--- NOTE | 2018-01-07 01:50 | NUR ---
ASSUMED PT CARE AT 19:15 . REPORT RECEIVED FROM NURSE. PT IS ALERT, AWAKE, ORIENTED X3 NOT ORIENTED TO TIME, NOT ABLE TO REMEMBER DATE. VITALS WITHIN NORMAL LIMIT. OXYGEN SATURATION IS 96 ON RA. ASSESSMENT PERFORMED, REFER TO CHART. PT DOES NOT COMPLAIN OF ANY PAIN BUT IS CONCERNED ABOUT HIS WOUNDS. AND WANTS THE DRESSINGS TO BE DONE. R LEG DRESSING TO BE REMOVED AND WOUND TO BE LEFT OPEN TO AIR ORDERED (SEE ORDERS). L. LEG WRAP TO BE REPLACED. DRESSING ON R. PLANTAR AREA IS INTACT. WOUND PICTURES ARE IN THE CHART. WOUND CARE CONSULT PLACED. NORMAL SALINE RUNNING AT 75 CC/HR IN LEFT FOREARM IV LINE. OTHER L. FOREARM IV LINE IS INTACT. . MEDICATIONS ADMINISTERED ORDERED. FALL PRECAUTION IN PLACE. R. RADIAL AREA IS INTACT AND DRY. WILL CONTINUE TO MONITOR.
[2018-01-07 04:00] VITALS: BP 107/44
[2018-01-07 08:00] VITALS: BP 92/48
--- NOTE | 2018-01-07 09:52 | NUR ---
Pt is A&O. Resides at home with his . Known to this CM from previous hospital stay. Supportive family that is involved in POC. Pt admitted for revascularization. Current with [facility]. Hx of skilled at [facility]. Pt is normally independent at home, shared ADLS with . Goal is to return home at dc with [facility]. Following.
[2018-01-07 13:39] VITALS: BP 110/46
[2018-01-07 17:18] VITALS: BP 130/44
--- NOTE | 2018-01-07 19:01 | NUR ---
ASSUMED CARE OF PT AT 0730. PT CONTINUES TO BE A&O TRACING V PACED ON THE MONITOR. VSS ON ROOM AIR. PT HAS BEEN AMBULATING TO THE BATHROOM TODAY AND AMBULATED IN THE [place] WITH PT. PT C/O PAIN HAVE BEEN CONTROLLED WITH PRN PAIN MEDICATIONS. PT HAS SOME N/V THIS AM BUT NONE SINCE AND HAS HAD A GOOD APPETITE THIS AFTERNOON. PT DRESSING TO RLE AND FOOT CHANGED PER PT REQUEST. PT CURRENTLY RESTING IN BED WATCHING TV, CALL LIGHT IN REACH AND NO APPARENT SIGNS OF DISTRESS.
[2018-01-07 23:34] VITALS: BP 100/41
[2018-01-08 03:42] VITALS: BP 102/46
[2018-01-08 08:01] VITALS: BP 111/52
[2018-01-08 13:14] VITALS: BP 121/59
[2018-01-08 17:28] VITALS: BP 133/53
--- NOTE | 2018-01-08 19:24 | NUR ---
ASSUMED CARE OF PT AT 0730. PT CONTINUNES TO BE A&O X4 AND FORGETFUL. PT VSS ON ROOM AIR. C/O PAIN CONTROLLED WITH PRM PAIN MEDS. PT UP TO RECLINER MOST OF THE DAY TODAY. APPETITE IS DECENT AND PT HAS BEEN EATING 75% OF MEALS TODAY. PT C/O CONSTIPATION AND GIVEN MOM WITH DINNER. PT V PACED ON THE MONITOR. NURSING WILL CONTINUE TO MONITOR.
[2018-01-08 20:00] VITALS: BP 151/53
[2018-01-09] VITALS: BP 155/58
[2018-01-09 04:30] VITALS: BP 126/58
[2018-01-09 04:35] LABS: HEMATOCRIT 21.7 % (42.0-52.0); HEMOGLOBIN 7.3 gm/dL (14.0-18.0); MCH 31.4 pg (26.0-34.0); MCHC 33.6 g/dL (28.0-37.0); MCV 93.4 fL (80.0-100.0); MPV 7.1 fl. (7.2-11.1); RBC 2.33 mil/uL (4.50-6.00); RDW-CV 17.7 % (10.5-14.5)
[2018-01-09 04:41] LABS: CALCIUM 7.7 mg/dL (8.5-10.1); CREATININE 1.2 mg/dL (0.6-1.3); POTASSIUM 3.7 mmol/L (3.5-5.1)
[2018-01-09 08:00] VITALS: BP 169/55
[2018-01-09 12:10] VITALS: BP 133/62
--- NOTE | 2018-01-09 12:33 | NUR ---
VSS, ASSUMED CARE IN THE AM, ASSESSMENT PERFROMED AND CHARTED, FALL PRECAUTIONS IN PLACE AND CALL LIGHT IN REACH, PT IS A&O4 AND UP WITH ONE AND WALKER, PT IS ON RA AND IS V-PACED ON THE MONITOR, PT STATES PAIN IN HIS FEET AND LEGS, PT GOAL IS TO WORK WITH PT/OT AND SIT UP IN CHAIR. WILL FOLLOW WITH PLAN OF CARE.
--- NOTE | 2018-01-09 13:34 | NUR ---
CONTINUE TO FOLLOW, MET WITH PT, AND SON. PT HOPES TO GO HOME TODAY. HE LIVES WITH . STATES EXPERIENCE AT [facility] WAS NOT 'POSITIVE.' PT PLANS TO RETURN HOME WITH AND [facility]. PT HAS WALKER, CANE, HADN RAILS AND GETTING LIFT CHAIR. ALSO WALK IN SHOWER. NO OTHER NEEDS ID'D
[2018-01-09 13:36] VITALS: BP 133/62
--- NOTE | 2018-01-09 16:34 | NUR ---
WOUND NURSE: PATIENT SEEN FOR WOUND CARE AND ASSESSMENT TO MULTIPLE WOUNDS. RIGHT RAVI-LATERAL LOWER LEG MEASURES 12.7 X 4.5 X 0.1 CM, DARK PURPLISH RED TISSUE IN THE WOUND BED AND LARGE AMT OF SEROUS DRAINAGE. RIGHT MEDIAL LOWER LEG MEASURES 5.0 X 7.0 X 0.1 CM AND LARGE AMOUNT OF SEROUS DRAINAGE AND DARK PURPLISH RED TISSUE IN THE WOUND BED. RIGHT DISTAL PLANTAR FOOT MEASURES 3.2 X 2. X 0.2 CM. WOUND BED CONTAINS YELLOWISH NONGRANULATING TISSUE AND MODERATE AMOUNT OF SEROUS DRAINAGEW NOTED FROM THIS WOUND. FEW SMALL DRY SCABS NOTED AROUND TOES. ABOVE LESIONS TREATED WITH OPTIFOAM GENTLE AG AFTER CLEANSING WITH WOUND CLEANSER AND GAUZE, EXCEPT SMALL DRY SCABS AROUND TOES TX'D WITH BETADINE SWAB. LOWER LEG WAS SUBSEQUENTLY WRAPPED WITH KERLEX ROLL GAUZE AND SECURED WITH TAPE. PATIENT ALSO HAS 3 CLOSED SURGICAL INCISIONS. RIGHT GROIND WOUND MEASURES 0.1 X 5.0 X 0.1 CM. RIGHT UPPER THIGH MEASURES 5.0 X 0.1 X 0.1 CM. RIGHT LOWER LEG MEASURES 11.0 X 0.1 X 0.1 CM. THESE WOUNDS ARE CLOSED, CLEAN, AND DRY. THESE ARE KEPT MANUEL. PATIENT INSTRUCTED ON MEASURES TO PROMOTE HEALTH AND PREVENT FURTHER COMPLICATIONS. ALSO INSTRUCTED ON REPORTABLE COMPLICATIONS. PATIENT AND FAMILY STATE THEY UNDERSTAND.
--- NOTE | 2018-01-09 17:14 | NUR ---
VSS, RECIEVED D/C INSTRUCTIONS, TOOK OUT IV AND TELE MONITOR, TOOK PT OUT VIA WHEEL CHAIR TO CAR, PROVITED D/C INSTRUCTIONS AND FILLED OUT MEDICATION SHEET AND D/C INSTRUCTIONS WHERE PROVITED TO FAMILY AND PATIENT, THEY DENIED ANY QUESTIONS OR CONCERNS AT TIME OF D/C. HOURLY ROUNDS COMPLETED,
== END 2018-01-09 17:19 | disposition home health service (06) | DRG 253 ==
LOC: M.ICU 07:12 → M.TBA 07:12 → M.PRE 10:08 → M.ICU 14:40 → M.2W 01-06 12:02
PROVIDERS: Internal Medicine; Surgery; ADMIT Internal Medicine
PROC: 041K09M Bypass Right Femoral Artery to Peroneal Artery with Autologous Venous Tissue, Open Approach (ICD-10-PCS; principal; 2018-01-05)
DX: E11.51 Type 2 diabetes mellitus with diabetic peripheral angiopathy without gangrene (principal); D68.59 Other primary thrombophilia; L97.518 Non-pressure chronic ulcer of other part of right foot with other specified severity; I70.203 Unspecified atherosclerosis of native arteries of extremities, bilateral legs; I48.91 Unspecified atrial fibrillation; Z79.01 Long term (current) use of anticoagulants; I25.10 Atherosclerotic heart disease of native coronary artery without angina pectoris; I50.9 Heart failure, unspecified; E78.5 Hyperlipidemia, unspecified; N18.3 Chronic kidney disease, stage 3 (moderate); E11.22 Type 2 diabetes mellitus with diabetic chronic kidney disease; E11.621 Type 2 diabetes mellitus with foot ulcer; Z88.8 Allergy status to other drugs, medicaments and biological substances; Z88.0 Allergy status to penicillin; Z91.040 Latex allergy status; Z79.899 Other long term (current) drug therapy; Z79.82 Long term (current) use of aspirin; I25.2 Old myocardial infarction; Z95.0 Presence of cardiac pacemaker; Z95.2 Presence of prosthetic heart valve; Z95.5 Presence of coronary angioplasty implant and graft; Z89.411 Acquired absence of right great toe; Z89.421 Acquired absence of other right toe(s); Z89.422 Acquired absence of other left toe(s); Z87.891 Personal history of nicotine dependence

== ENCOUNTER → 2018-01-25 | Outpatient (CLI) | payer MEDICARE ==
[~2018-01-25] MED LIST changes: +COZAAR 25 MG TA25 M2 PO; +EPOGEN10000 UNIT HEMODIALYS; +EPOGEN10000 UNIT IV PUSH; +FLOMAX0.4 MG PO; +HUMALOG100 UNIT/1 SUBQ; +HYDRALAZINE 10M10 MG IV PUSH; +MAPAP325 MG PO; +MIRALAX17 GM PO; +NEPHROCAPS SOFT1 CAP PO; +PROTONIX40 M1 PO; +REMERON15 MG PO; +RENVELA800 MG PO; +THERAGRAN-M PR1 EAC1 PO; +TYLENOL325 MG PO; +VANCOMYCIN500 MG/VIA IV
== END ==
LOC: M.WC 04:12
DX: T81.89XA Other complications of procedures, not elsewhere classified, initial encounter (principal); E11.621 Type 2 diabetes mellitus with foot ulcer; L97.511 Non-pressure chronic ulcer of other part of right foot limited to breakdown of skin; I70.735 Atherosclerosis of other type of bypass graft(s) of the right leg with ulceration of other part of foot; E11.51 Type 2 diabetes mellitus with diabetic peripheral angiopathy without gangrene; I11.0 Hypertensive heart disease with heart failure; I50.9 Heart failure, unspecified; I25.10 Atherosclerotic heart disease of native coronary artery without angina pectoris; E78.5 Hyperlipidemia, unspecified; Z89.422 Acquired absence of other left toe(s); Z89.411 Acquired absence of right great toe; Z89.421 Acquired absence of other right toe(s); Z95.0 Presence of cardiac pacemaker; Y92.89 Other specified places as the place of occurrence of the external cause; Y83.8 Other surgical procedures as the cause of abnormal reaction of the patient, or of later complication, without mention of misadventure at the time of the procedure

== ENCOUNTER → 2018-02-01 | Outpatient (CLI) | payer MEDICARE | LOC: M.WC 03:33 | DX: T81.89XD Other complications of procedures, not elsewhere classified, subsequent encounter (principal); E11.622 Type 2 diabetes mellitus with other skin ulcer; I70.735 Atherosclerosis of other type of bypass graft(s) of the right leg with ulceration of other part of foot; L97.511 Non-pressure chronic ulcer of other part of right foot limited to breakdown of skin; E11.40 Type 2 diabetes mellitus with diabetic neuropathy, unspecified; I87.2 Venous insufficiency (chronic) (peripheral); I11.0 Hypertensive heart disease with heart failure; I50.9 Heart failure, unspecified; I25.10 Atherosclerotic heart disease of native coronary artery without angina pectoris; E78.5 Hyperlipidemia, unspecified; Z89.422 Acquired absence of other left toe(s); Z89.421 Acquired absence of other right toe(s); Z89.411 Acquired absence of right great toe; Z95.0 Presence of cardiac pacemaker; Y83.2 Surgical operation with anastomosis, bypass or graft as the cause of abnormal reaction of the patient, or of later complication, without mention of misadventure at the time of the procedure ==

== ENCOUNTER → 2018-02-08 | Outpatient (CLI) | payer MEDICARE | LOC: M.RAD 00:33 → M.WC 00:33 | DX: T81.89XD Other complications of procedures, not elsewhere classified, subsequent encounter (principal); E11.621 Type 2 diabetes mellitus with foot ulcer; L97.511 Non-pressure chronic ulcer of other part of right foot limited to breakdown of skin; I70.735 Atherosclerosis of other type of bypass graft(s) of the right leg with ulceration of other part of foot; E11.51 Type 2 diabetes mellitus with diabetic peripheral angiopathy without gangrene; I11.0 Hypertensive heart disease with heart failure; I50.9 Heart failure, unspecified; I25.10 Atherosclerotic heart disease of native coronary artery without angina pectoris; E78.5 Hyperlipidemia, unspecified; Z89.422 Acquired absence of other left toe(s); Z89.411 Acquired absence of right great toe; Z89.421 Acquired absence of other right toe(s); Z95.0 Presence of cardiac pacemaker; Y83.8 Other surgical procedures as the cause of abnormal reaction of the patient, or of later complication, without mention of misadventure at the time of the procedure ==

== ENCOUNTER → 2018-02-09 | Outpatient (CLI) | payer MEDICARE | LOC: M.WC 01:31 | DX: E11.621 Type 2 diabetes mellitus with foot ulcer (principal); L97.516 Non-pressure chronic ulcer of other part of right foot with bone involvement without evidence of necrosis; I70.735 Atherosclerosis of other type of bypass graft(s) of the right leg with ulceration of other part of foot; E11.51 Type 2 diabetes mellitus with diabetic peripheral angiopathy without gangrene; E11.40 Type 2 diabetes mellitus with diabetic neuropathy, unspecified; E78.5 Hyperlipidemia, unspecified; I11.0 Hypertensive heart disease with heart failure; I50.9 Heart failure, unspecified; I25.10 Atherosclerotic heart disease of native coronary artery without angina pectoris; Z89.422 Acquired absence of other left toe(s); Z89.411 Acquired absence of right great toe; Z89.421 Acquired absence of other right toe(s); Z95.0 Presence of cardiac pacemaker ==

== ENCOUNTER → 2018-02-13 | Outpatient (CLI) | payer MEDICARE | LOC: M.WC 11:30 | DX: E11.621 Type 2 diabetes mellitus with foot ulcer (principal); I70.735 Atherosclerosis of other type of bypass graft(s) of the right leg with ulceration of other part of foot; L97.511 Non-pressure chronic ulcer of other part of right foot limited to breakdown of skin; E11.51 Type 2 diabetes mellitus with diabetic peripheral angiopathy without gangrene; I11.0 Hypertensive heart disease with heart failure; I50.9 Heart failure, unspecified; I25.10 Atherosclerotic heart disease of native coronary artery without angina pectoris; E78.5 Hyperlipidemia, unspecified; Z89.422 Acquired absence of other left toe(s); Z89.411 Acquired absence of right great toe; Z89.421 Acquired absence of other right toe(s); Z95.0 Presence of cardiac pacemaker ==

== ENCOUNTER → 2018-02-15 | Outpatient (CLI) | payer MEDICARE | LOC: M.WC 04:03 | DX: E11.621 Type 2 diabetes mellitus with foot ulcer (principal); I70.735 Atherosclerosis of other type of bypass graft(s) of the right leg with ulceration of other part of foot; L97.511 Non-pressure chronic ulcer of other part of right foot limited to breakdown of skin; S81.812D Laceration without foreign body, left lower leg, subsequent encounter; E11.51 Type 2 diabetes mellitus with diabetic peripheral angiopathy without gangrene; E78.5 Hyperlipidemia, unspecified; I11.0 Hypertensive heart disease with heart failure; I50.9 Heart failure, unspecified; Z89.411 Acquired absence of right great toe; Z89.421 Acquired absence of other right toe(s); Z89.422 Acquired absence of other left toe(s); X58.XXXD Exposure to other specified factors, subsequent encounter ==

== ENCOUNTER → 2018-02-17 | Outpatient (CLI) | payer MEDICARE | LOC: M.WC 00:25 | DX: E11.621 Type 2 diabetes mellitus with foot ulcer (principal); I70.735 Atherosclerosis of other type of bypass graft(s) of the right leg with ulceration of other part of foot; L97.511 Non-pressure chronic ulcer of other part of right foot limited to breakdown of skin; S81.812D Laceration without foreign body, left lower leg, subsequent encounter; E11.51 Type 2 diabetes mellitus with diabetic peripheral angiopathy without gangrene; I25.10 Atherosclerotic heart disease of native coronary artery without angina pectoris; I11.0 Hypertensive heart disease with heart failure; I50.9 Heart failure, unspecified; E78.5 Hyperlipidemia, unspecified; Z89.411 Acquired absence of right great toe; Z89.422 Acquired absence of other left toe(s); Z89.421 Acquired absence of other right toe(s); Z95.0 Presence of cardiac pacemaker; X58.XXXD Exposure to other specified factors, subsequent encounter ==

== ENCOUNTER → 2018-02-20 | Outpatient (CLI) | payer MEDICARE | LOC: M.WC 00:55 | DX: E11.621 Type 2 diabetes mellitus with foot ulcer (principal); L97.511 Non-pressure chronic ulcer of other part of right foot limited to breakdown of skin; S81.812D Laceration without foreign body, left lower leg, subsequent encounter; E11.51 Type 2 diabetes mellitus with diabetic peripheral angiopathy without gangrene; I11.0 Hypertensive heart disease with heart failure; I50.9 Heart failure, unspecified; I25.10 Atherosclerotic heart disease of native coronary artery without angina pectoris; E78.5 Hyperlipidemia, unspecified; Z89.422 Acquired absence of other left toe(s); Z89.411 Acquired absence of right great toe; Z89.421 Acquired absence of other right toe(s); X58.XXXD Exposure to other specified factors, subsequent encounter ==

== ENCOUNTER → 2018-02-22 | Outpatient (CLI) | payer MEDICARE | LOC: M.WC 05:06 | DX: E11.621 Type 2 diabetes mellitus with foot ulcer (principal); I70.735 Atherosclerosis of other type of bypass graft(s) of the right leg with ulceration of other part of foot; L97.511 Non-pressure chronic ulcer of other part of right foot limited to breakdown of skin; S81.812D Laceration without foreign body, left lower leg, subsequent encounter; E11.51 Type 2 diabetes mellitus with diabetic peripheral angiopathy without gangrene; I11.0 Hypertensive heart disease with heart failure; I50.9 Heart failure, unspecified; I25.10 Atherosclerotic heart disease of native coronary artery without angina pectoris; E78.5 Hyperlipidemia, unspecified; Z89.422 Acquired absence of other left toe(s); Z89.411 Acquired absence of right great toe; Z89.421 Acquired absence of other right toe(s); Z95.0 Presence of cardiac pacemaker; X58.XXXD Exposure to other specified factors, subsequent encounter ==

== ENCOUNTER → 2018-02-24 | Outpatient (CLI) | payer MEDICARE | LOC: M.WC 03:49 | DX: E11.621 Type 2 diabetes mellitus with foot ulcer (principal); I70.235 Atherosclerosis of native arteries of right leg with ulceration of other part of foot; L97.511 Non-pressure chronic ulcer of other part of right foot limited to breakdown of skin; E11.622 Type 2 diabetes mellitus with other skin ulcer; L97.811 Non-pressure chronic ulcer of other part of right lower leg limited to breakdown of skin; S81.811D Laceration without foreign body, right lower leg, subsequent encounter; E11.51 Type 2 diabetes mellitus with diabetic peripheral angiopathy without gangrene; I25.10 Atherosclerotic heart disease of native coronary artery without angina pectoris; E78.5 Hyperlipidemia, unspecified; I11.0 Hypertensive heart disease with heart failure; I50.9 Heart failure, unspecified; Z89.422 Acquired absence of other left toe(s); Z89.411 Acquired absence of right great toe; Z89.421 Acquired absence of other right toe(s); Z86.31 Personal history of diabetic foot ulcer; Z95.1 Presence of aortocoronary bypass graft; Z95.0 Presence of cardiac pacemaker; X58.XXXD Exposure to other specified factors, subsequent encounter ==

== ENCOUNTER → 2018-02-27 | Outpatient (CLI) | payer MEDICARE | LOC: M.WC 00:10 | DX: E11.621 Type 2 diabetes mellitus with foot ulcer (principal); L97.511 Non-pressure chronic ulcer of other part of right foot limited to breakdown of skin; E11.622 Type 2 diabetes mellitus with other skin ulcer; L97.811 Non-pressure chronic ulcer of other part of right lower leg limited to breakdown of skin; S81.812D Laceration without foreign body, left lower leg, subsequent encounter; E11.51 Type 2 diabetes mellitus with diabetic peripheral angiopathy without gangrene; I25.10 Atherosclerotic heart disease of native coronary artery without angina pectoris; E78.5 Hyperlipidemia, unspecified; I11.0 Hypertensive heart disease with heart failure; I50.9 Heart failure, unspecified; Z89.411 Acquired absence of right great toe; Z89.422 Acquired absence of other left toe(s); Z95.0 Presence of cardiac pacemaker; X58.XXXD Exposure to other specified factors, subsequent encounter ==

== ENCOUNTER → 2018-03-02 | Outpatient (CLI) | payer MEDICARE | LOC: M.WC 03:58 | DX: E11.621 Type 2 diabetes mellitus with foot ulcer (principal); I70.735 Atherosclerosis of other type of bypass graft(s) of the right leg with ulceration of other part of foot; L97.511 Non-pressure chronic ulcer of other part of right foot limited to breakdown of skin; E11.622 Type 2 diabetes mellitus with other skin ulcer; L97.811 Non-pressure chronic ulcer of other part of right lower leg limited to breakdown of skin; S81.812D Laceration without foreign body, left lower leg, subsequent encounter; E11.21 Type 2 diabetes mellitus with diabetic nephropathy; E11.51 Type 2 diabetes mellitus with diabetic peripheral angiopathy without gangrene; I25.10 Atherosclerotic heart disease of native coronary artery without angina pectoris; E78.5 Hyperlipidemia, unspecified; I11.0 Hypertensive heart disease with heart failure; I50.9 Heart failure, unspecified; Z95.0 Presence of cardiac pacemaker; Z89.421 Acquired absence of other right toe(s); Z89.411 Acquired absence of right great toe; Z89.422 Acquired absence of other left toe(s); X58.XXXD Exposure to other specified factors, subsequent encounter ==

== ENCOUNTER → 2018-03-03 | Outpatient (CLI) | payer MEDICARE | LOC: M.WC 10:00 | DX: E11.621 Type 2 diabetes mellitus with foot ulcer (principal); I70.735 Atherosclerosis of other type of bypass graft(s) of the right leg with ulceration of other part of foot; L97.511 Non-pressure chronic ulcer of other part of right foot limited to breakdown of skin; E11.21 Type 2 diabetes mellitus with diabetic nephropathy; E11.51 Type 2 diabetes mellitus with diabetic peripheral angiopathy without gangrene; I11.0 Hypertensive heart disease with heart failure; I50.9 Heart failure, unspecified; I25.10 Atherosclerotic heart disease of native coronary artery without angina pectoris; E78.5 Hyperlipidemia, unspecified; Z89.422 Acquired absence of other left toe(s); Z89.411 Acquired absence of right great toe; Z89.421 Acquired absence of other right toe(s); Z95.0 Presence of cardiac pacemaker; Z95.1 Presence of aortocoronary bypass graft ==

== ENCOUNTER → 2018-03-06 | Outpatient (CLI) | payer MEDICARE | LOC: M.WC 00:55 | DX: E11.621 Type 2 diabetes mellitus with foot ulcer (principal); I70.735 Atherosclerosis of other type of bypass graft(s) of the right leg with ulceration of other part of foot; L97.511 Non-pressure chronic ulcer of other part of right foot limited to breakdown of skin; E11.51 Type 2 diabetes mellitus with diabetic peripheral angiopathy without gangrene; I25.10 Atherosclerotic heart disease of native coronary artery without angina pectoris; E78.5 Hyperlipidemia, unspecified; I11.0 Hypertensive heart disease with heart failure; I50.9 Heart failure, unspecified; Z89.422 Acquired absence of other left toe(s); Z89.411 Acquired absence of right great toe; Z89.421 Acquired absence of other right toe(s); Z95.0 Presence of cardiac pacemaker ==

== ENCOUNTER → 2018-03-08 | Outpatient (CLI) | payer MEDICARE | LOC: M.WC 04:33 | DX: E11.621 Type 2 diabetes mellitus with foot ulcer (principal); I70.735 Atherosclerosis of other type of bypass graft(s) of the right leg with ulceration of other part of foot; L97.511 Non-pressure chronic ulcer of other part of right foot limited to breakdown of skin; E11.21 Type 2 diabetes mellitus with diabetic nephropathy; E11.622 Type 2 diabetes mellitus with other skin ulcer; L97.821 Non-pressure chronic ulcer of other part of left lower leg limited to breakdown of skin; E11.51 Type 2 diabetes mellitus with diabetic peripheral angiopathy without gangrene; I25.10 Atherosclerotic heart disease of native coronary artery without angina pectoris; E78.5 Hyperlipidemia, unspecified; I11.0 Hypertensive heart disease with heart failure; I50.9 Heart failure, unspecified; Z89.422 Acquired absence of other left toe(s); Z89.421 Acquired absence of other right toe(s); Z89.411 Acquired absence of right great toe; Z95.0 Presence of cardiac pacemaker ==

== ENCOUNTER → 2018-03-10 | Outpatient (CLI) | payer MEDICARE | LOC: M.WC 04:39 | DX: E11.622 Type 2 diabetes mellitus with other skin ulcer (principal); L97.821 Non-pressure chronic ulcer of other part of left lower leg limited to breakdown of skin; E11.621 Type 2 diabetes mellitus with foot ulcer; I70.735 Atherosclerosis of other type of bypass graft(s) of the right leg with ulceration of other part of foot; L97.511 Non-pressure chronic ulcer of other part of right foot limited to breakdown of skin; E11.21 Type 2 diabetes mellitus with diabetic nephropathy; E11.51 Type 2 diabetes mellitus with diabetic peripheral angiopathy without gangrene; I25.10 Atherosclerotic heart disease of native coronary artery without angina pectoris; E78.5 Hyperlipidemia, unspecified; I11.0 Hypertensive heart disease with heart failure; I50.9 Heart failure, unspecified; Z89.422 Acquired absence of other left toe(s); Z89.411 Acquired absence of right great toe; Z89.421 Acquired absence of other right toe(s) ==

== ENCOUNTER → 2018-03-13 | Outpatient (CLI) | payer MEDICARE | LOC: M.WC 01:11 | DX: E11.621 Type 2 diabetes mellitus with foot ulcer (principal); L97.511 Non-pressure chronic ulcer of other part of right foot limited to breakdown of skin; E11.622 Type 2 diabetes mellitus with other skin ulcer; L97.821 Non-pressure chronic ulcer of other part of left lower leg limited to breakdown of skin; E11.51 Type 2 diabetes mellitus with diabetic peripheral angiopathy without gangrene; I25.10 Atherosclerotic heart disease of native coronary artery without angina pectoris; E78.5 Hyperlipidemia, unspecified; I11.0 Hypertensive heart disease with heart failure; I50.9 Heart failure, unspecified; Z89.422 Acquired absence of other left toe(s); Z89.411 Acquired absence of right great toe; Z89.421 Acquired absence of other right toe(s) ==

== ENCOUNTER → 2018-03-15 | Outpatient (CLI) | payer MEDICARE | LOC: M.WC 05:08 | DX: E11.621 Type 2 diabetes mellitus with foot ulcer (principal); I70.735 Atherosclerosis of other type of bypass graft(s) of the right leg with ulceration of other part of foot; L97.511 Non-pressure chronic ulcer of other part of right foot limited to breakdown of skin; E11.622 Type 2 diabetes mellitus with other skin ulcer; L97.821 Non-pressure chronic ulcer of other part of left lower leg limited to breakdown of skin; S91.312D Laceration without foreign body, left foot, subsequent encounter; E11.51 Type 2 diabetes mellitus with diabetic peripheral angiopathy without gangrene; I25.10 Atherosclerotic heart disease of native coronary artery without angina pectoris; I11.0 Hypertensive heart disease with heart failure; I50.9 Heart failure, unspecified; E78.5 Hyperlipidemia, unspecified; Z89.422 Acquired absence of other left toe(s); Z89.411 Acquired absence of right great toe; Z89.421 Acquired absence of other right toe(s); Z95.0 Presence of cardiac pacemaker; Z95.1 Presence of aortocoronary bypass graft; X58.XXXD Exposure to other specified factors, subsequent encounter ==

== ENCOUNTER 2018-03-20 12:24 | Inpatient (IN) | payer MEDICARE ==
[~2018-03-20] VITALS: Ht 182.9 cm; Wt 71.2 kg
[~2018-03-20 12:24] MED LIST changes: -COZAAR 25 MG TA25 M2 PO; -EPOGEN10000 UNIT HEMODIALYS; -EPOGEN10000 UNIT IV PUSH; -FLOMAX0.4 MG PO; -HUMALOG100 UNIT/1 SUBQ; -HYDRALAZINE 10M10 MG IV PUSH; -MAPAP325 MG PO; -MIRALAX17 GM PO; -NEPHROCAPS SOFT1 CAP PO; -PROTONIX40 M1 PO; -REMERON15 MG PO; -RENVELA800 MG PO; -THERAGRAN-M PR1 EAC1 PO; -TYLENOL325 MG PO; -VANCOMYCIN500 MG/VIA IV
[2018-03-20 12:29] VITALS: BP 136/65
[2018-03-20 13:05] LABS: HEMATOCRIT 39.3 % (42.0-52.0); HEMOGLOBIN 12.8 gm/dL (14.0-18.0); MCHC 32.6 g/dL (28.0-37.0); MCV 91.9 fL (80.0-100.0); MPV 7.9 fl. (7.2-11.1); NUCLEATED RBCS 0 /100WBC; PLATELET COUNT* 205 thou/uL (150-400); RBC 4.28 mil/uL (4.50-6.00); WBC 14.8 thou/uL (4.0-11.0)
[2018-03-20 13:14] LABS: CALCIUM 9.5 mg/dL (8.5-10.1); CREATININE 1.5 mg/dL (0.6-1.3); POTASSIUM 3.9 mmol/L (3.5-5.1)
[2018-03-20 13:16] LABS: INR 2.9; PROTIME 28.1 Seconds (9.20-11.50)
[2018-03-20 13:25] LABS: ABSOLUTE EOSINOPHILS 0.3 thou/uL (0.0-0.7); ABSOLUTE MONOCYTES 0.6 thou/uL (0.0-1.2); ABSOLUTE NEUTROPHILS 12.9 thou/uL (1.6-8.1); ALBUMIN 2.9 g/dL (3.4-5.0); ANISOCYTOSIS 1+; PLATELET ESTIMATE ADEQUATE; POIKILOCYTOSIS 1+; TOTAL BILIRUBIN 0.5 mg/dL (<0.1-1.0); TOTAL PROTEIN 7.6 g/dL (6.4-8.2)
[2018-03-20 14:23] LABS: ESR (SEDRATE) 95 mm/hr (0-20)
[2018-03-20 14:31] VITALS: BP 126/59
[2018-03-20 14:45] VITALS: BP 122/59
--- NOTE | 2018-03-20 18:35 | NUR ---
PATIENT PROGRESSING WELL TOWARDS GOALS. AXOX4, NO PAIN, NAUSEA OR SHORTNESS OF AIR REPORTED. GLUCOSE REMAINED UNDER CONTROL, VITALS WNL. BED IN LOWEST POSITION, CALL LIGHT IN REACH, FALL PREACAUTIONS IN PLACE.
--- NOTE | 2018-03-20 19:37 | EKG ---
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: [facility] : [id number] Requested By: Dieter Connolly Order Number: [id number] MD: Karan Millard Measurements Intervals [place] Rate: 60 P: -69 OK: 285 QRS: -78 QRSD: 215 T: 111 QT: 505 QTc: 505 Interpretive Statements Ventricular-paced rhythm No further analysis attempted due to paced rhythm Compared to ECG 11/30/2017 01:45:39 No significant changes Electronically Signed On 03-20-2018 19:37:07 CDT by Karan Millard [email or web address] <ELECTRONICALLY SIGNED> By: Karan Millard MD, FACC 03/20/18 [id number] Karan Millard MD, FAC /EPI
[2018-03-20 20:00] VITALS: BP 127/60
--- NOTE | 2018-03-21 02:36 | NUR ---
PT A&O GETS UP WITH STAND BY ASSIST. 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 R FOOT DRSG INTACT. ON RA. ABX INFUSING TO L FA.
[2018-03-21 04:29] LABS: ABSOLUTE EOSINOPHILS 0.3 thou/uL (0.0-0.7); ABSOLUTE MONOCYTES 1.3 thou/uL (0.0-1.2); ABSOLUTE NEUTROPHILS 8.3 thou/uL (1.6-8.1); BASOPHILS 0.3 %; EOSINOPHILS 2.9 %; HEMATOCRIT 34.6 % (42.0-52.0); HEMOGLOBIN 11.3 gm/dL (14.0-18.0); MCH 30.3 pg (26.0-34.0); MCHC 32.7 g/dL (28.0-37.0); MCV 92.7 fL (80.0-100.0); MONOCYTES 11.8 %; MPV 8.1 fl. (7.2-11.1); NUCLEATED RBCS 0 /100WBC; PLATELET COUNT* 158 thou/uL (150-400); RBC 3.73 mil/uL (4.50-6.00); RDW-CV 15.7 % (10.5-14.5); WBC 10.9 thou/uL (4.0-11.0)
[2018-03-21 04:30] LABS: INR 2.6; PROTIME 24.8 Seconds (9.20-11.50)
[2018-03-21 05:00] LABS: CALCIUM 8.6 mg/dL (8.5-10.1); CREATININE 1.4 mg/dL (0.6-1.3); POTASSIUM 3.8 mmol/L (3.5-5.1)
[2018-03-21 09:00] VITALS: BP 136/64
--- NOTE | 2018-03-21 12:00 | NUR ---
MET WITH PT AND DTR TO DISCUSS HOME SITUATION/DC PLANNING. PT KNOWN TO CM. HE LIVES WITH . DTR AND SON ARE SUPPORTIVE AND ASSIST WITH CARES. [facility] FOR HBO AND WOUND CARE. HE HAS HAD A WOUND VAC ON HIS LEG UNTIL A WEEK AGO. VASCULAR FOLLOWS HIM. PT USES WALKER AND HAS CANE AND GRAB BARS. HE HAD HH WITH [facility] UNTIL HE STARTED HBO. HE PLANS TO RETURN HOME AT DC. NOT IN ROOM AT THIS TIME. WILL F/U WITH HER AND DISCUSS FURTHER
[2018-03-21 15:59] VITALS: BP 115/57
--- NOTE | 2018-03-21 16:20 | NUR ---
PATIENT UP TO BATHROOM WITH USE OF GAIT BELT AND WALKER, PATIENT HEAVY ASSIST. BM NOTED THIS AFTERNOON. IV REMAINS SL, SCHED ABX INFUSED. DR. SHAFFER CONSULTED, HE AND DR. ENNIS NOTIFIED OF GRAM + COCCI IN BLOOD CULTURE. VASCULAR HERE THIS AFTERNOON, NO NEW ORDERS RECEIVED. DRESSINGS TO RIGHT FOOT CHANGED PER PROTOCOL. LEFT TUBAGRIP REMOVED AND SKIN CHECKED. NO COMPLAINTS OF PAIN. FAMILY AT BEDSIDE ALL SHIFT.
[2018-03-21 19:30] VITALS: BP 115/52
[2018-03-22 04:53] LABS: PROTIME 28.3 Seconds (9.20-11.50)
--- NOTE | 2018-03-22 05:44 | NUR ---
PT SLEPT ON AND OFF THIS SHIFT. ASSESSMENT DOCUMENTED. MEDS GIVEN PER E-OCT. IV PATENT. PT REFUSED TO TAKE HIS TAMSULOSIN THIS SHIFT. NO REPORTS OF PAIN. WILL CONTINUE WITH PLAN OF CARE.
[2018-03-22 09:00] VITALS: BP 150/72
[2018-03-22 09:51] LABS: HEMATOCRIT 36.1 % (42.0-52.0); HEMOGLOBIN 11.9 gm/dL (14.0-18.0); MCH 30.8 pg (26.0-34.0); MCHC 33.1 g/dL (28.0-37.0); MCV 93.1 fL (80.0-100.0); MPV 8.1 fl. (7.2-11.1); NUCLEATED RBCS 0 /100WBC; PLATELET COUNT* 196 thou/uL (150-400); RBC 3.88 mil/uL (4.50-6.00); RDW-CV 15.9 % (10.5-14.5); WBC 10.9 thou/uL (4.0-11.0)
[2018-03-22 10:00] LABS: ALBUMIN 2.5 g/dL (3.4-5.0); CALCIUM 8.6 mg/dL (8.5-10.1); CREATININE 1.6 mg/dL (0.6-1.3); POTASSIUM 3.8 mmol/L (3.5-5.1); TOTAL BILIRUBIN 0.7 mg/dL (<0.1-1.0); TOTAL PROTEIN 5.9 g/dL (6.4-8.2)
[2018-03-22 10:26] LABS: ABSOLUTE EOSINOPHILS 0.4 thou/uL (0.0-0.7); ABSOLUTE LYMPHOCYTES 0.8 thou/uL (0.8-5.3); ABSOLUTE MONOCYTES 1.7 thou/uL (0.0-1.2)
[2018-03-22 10:30] LABS: PLATELET ESTIMATE ADEQUATE
--- NOTE | 2018-03-22 11:53 | CON ---
[address] [address] CONSULTATION Name: NIKKO,KEVIN Gisela Room: [address] IN .R.#: [id number] Admission: 03/20/18 Attend Phys: Jaziel Koehler MD Discharge: Date of : 32 Report #: [id number] THIS REPORT FOR: //name// CC: Jaziel Koehler Eben Keys DATE OF SERVICE: 03/21/2018 INFECTIOUS DISEASE CONSULTATION ATTENDING PHYSICIAN: Jaziel Koehler M.D. REASON FOR EVALUATION: Right lower extremity skin and soft tissue infection/cellulitis. HISTORY OF PRESENT ILLNESS: Chart reviewed, patient examined. This is an 87-year-old man well known to myself, it has been several months since he was last seen, was admitted through the emergency room with complaints of increasing inflammatory signs associated with the right lower extremity. It is notable that he has severe vasculopathy generally and throughout the lower extremities, previous toe amputations which were prior to complication with diabetes mellitus. He was reportedly quite encephalopathic as well. It is not clear if he had any fevers or chills. At this point, he denies any anorexia. No gastrointestinal-related complaints. He has had some dyspnea with mild exertion. As part of the evaluation, blood cultures were collected at the time of admission 08/30, now with growth of Gram-positive cocci, awaiting ID and susceptibility, was empirically treated with antimicrobials, vancomycin and given a dose of ciprofloxacin as well. Clearly, he has improved. ALLERGIES: LATEX, BERLY INHIBITORS, PENICILLIN. CURRENT MEDICATIONS: Include cyanocobalamin, warfarin, aspirin, fish oil, furosemide, metformin, atorvastatin, ascorbic acid, metoprolol, finasteride, fenofibrate, pantoprazole, vancomycin, tamsulosin, p.r.n. analgesics, antiemetics. 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 SOCIAL HISTORY: Former smoker. No ethanol. FAMILY HISTORY: [place] [address] CONSULTATION Name: KEVIN EL Room: [address]#: [id number] Admission: 03/20/18 Attend Phys: Jaziel Koehler MD Discharge: Date of : 32 Report #: [id number] REVIEW OF SYSTEMS: As above. PHYSICAL EXAMINATION: GENERAL: He is pleasant, alert, cooperative, appears chronically ill, undernourished. VITAL SIGNS: Temperature max 99.3, more recently 97.9, pulse 61, respirations 18, blood pressure 136/64. SKIN: Warm, dry, no rashes. HEENT: Otherwise, unremarkable. He has nasal cannula oxygen in place. NECK: Supple. LUNGS: Occasional wheezes, few scattered coarse breath sounds. He is borderline tachypneic. ABDOMEN: Soft, nontender, nondistended. EXTREMITIES: Right lower extremity has moderate inflammatory changes. There is a change consistent with vasculopathy. At this point, there is no significant amount of swelling. Distal pulses are markedly diminished, scattered blackened area over his toe. GENITOURINARY: Deferred. RECTAL: Deferred. LABORATORY DATA: Ultrasound of aorta shows no aneurysm or stenosis. Blood cultures as described above, 1 with Gram-positive cocci. Electrolytes: Sodium 139, potassium 3.8, chloride 104, bicarbonate is 27, BUN and creatinine 31 and 1.4, glucose of 108, estimated GFR of 48. CBC: White count of 10.9, H and H is 11.3 and 34.6, platelets of 158. Arterial Doppler of lower extremity showed occlusion of the popliteal artery with a bypass graft from the groin to the calf. Sed rate was 95. White count of 14.8, H and H 12.8 and 39.3, platelets of 205. An x-ray of the foot, no definite evidence for bone destruction or acute osseous abnormality. Chest x-ray, no acute cardiopulmonary abnormality. Electrolytes: Sodium 137, potassium 3.9, chloride 102, bicarbonate is 30, anion gap of 5, BUN and creatinine 32 and 1.5, glucose of 156. Albumin of 2.9, total protein of 7.6. LFTs unremarkable. Lactic acid 1.9. PT of 28.1, INR of 2.9. ASSESSMENT: Right lower extremity inflammatory eruption, likely multifactorial with a component of skin and soft tissue infection/cellulitis. We will continue the vancomycin. He does have a positive blood culture; at this point with the information available, I cannot tell you if it is true positive or contaminant, we will await those results. Overall, he is better clinically. I discussed with the patient and the family. Pending discussion with Vascular Surgery, whether they are to do watchful waiting or intervene is not clear. <ELECTRONICALLY SIGNED> By: Aidan Eaton MD 03/22/18 1153 1150 1223Jothao Eaton MD /nt
--- NOTE | 2018-03-22 15:59 | NUR ---
PATIENT SITTING UP IN CHAIR ALL MORNING/AFTERNOON, WAFFLE CUSHION IN PLACE AND REPOSITIONED IN CHAIR. PT AMBULATED WITH PATIENT TODAY. VANC TROUGH 11 THIS AFTERNOON, IV PIGGYBACK DOSE INCREASED PER PHARMACY. DRESSINGS TO RIGHT LEG/FOOT CHANGED THIS SHIFT PER PROTOCOL. PATIENT TO DISCHARGE WHEN BLOOD CULTURE SENSITIVITY RESULTS AND ABX ORDERED PER DR. SHAFFER FROM ID. FAMILY AT BEDSIDE THIS SHIFT AND UPDATED ON PLAN OF CARE.
[2018-03-22 16:39] VITALS: BP 149/76
[2018-03-22 19:50] VITALS: BP 141/71
[2018-03-23 05:05] LABS: ABSOLUTE BASOPHILS 0.1 thou/uL (0.0-0.2); ABSOLUTE EOSINOPHILS 0.4 thou/uL (0.0-0.7); ABSOLUTE LYMPHOCYTES 0.9 thou/uL (0.8-5.3); ABSOLUTE MONOCYTES 1.4 thou/uL (0.0-1.2); ABSOLUTE NEUTROPHILS 8.1 thou/uL (1.6-8.1); BASOPHILS 0.7 %; EOSINOPHILS 3.5 %; HEMATOCRIT 35.9 % (42.0-52.0); HEMOGLOBIN 11.8 gm/dL (14.0-18.0); LYMPHOCYTES 8.3 %; MCHC 32.8 g/dL (28.0-37.0); MCV 91.3 fL (80.0-100.0); MONOCYTES 12.9 %; MPV 7.5 fl. (7.2-11.1); NUCLEATED RBCS 0 /100WBC; PLATELET COUNT* 192 thou/uL (150-400); POLYS 74.6 %; RBC 3.93 mil/uL (4.50-6.00); RDW-CV 16.2 % (10.5-14.5); WBC 10.8 thou/uL (4.0-11.0)
[2018-03-23 05:19] LABS: PROTIME 28.8 Seconds (9.20-11.50)
[2018-03-23 05:21] LABS: PREALBUMIN 9.1 mg/dL (18.0-35.7)
[2018-03-23 05:28] LABS: ALBUMIN 2.2 g/dL (3.4-5.0); CALCIUM 8.8 mg/dL (8.5-10.1); CREATININE 2.1 mg/dL (0.6-1.3); TOTAL BILIRUBIN 0.8 mg/dL (<0.1-1.0); TOTAL PROTEIN 6.4 g/dL (6.4-8.2)
--- NOTE | 2018-03-23 06:17 | NUR ---
PT SLEPT MOST OF SHIFT. ASSESSMENT DOCUMENTED. PT REFUSED PO MEDICATIONS THIS SHIFT, ONCE STATING THAT HE NEEDED TO TALK TO THE DR FIRST THEN STATING HIS NEEDED TO BE HERE FIRST. NO REPORTS OF PAIN. PT AMBULATED TO BATHROOM ONCE THIS SHIFT. WILL CONTINUE WITH PLAN OF CARE.
[2018-03-23 08:57] VITALS: BP 117/69
--- NOTE | 2018-03-23 13:42 | NUR ---
MET WITH PT'S SON/REJI TO DISCUSS DC PLAN. PER DR SHAFFER, TO SWITCH TO PO ANTIBX. PER , PLAN IS FOR PT TO RETURN HOME AT DC AND CONTINUE WITH DAILY HBO AT [facility]. THEY FEEL THEY CAN CONTINUE TO MANAGE AT HOME. WILL FOLLOW
--- NOTE | 2018-03-23 14:49 | NUR ---
ASSUMED CARES OF PT AT 0700. PT IN BED, BED IN LOW LOCKED POSITION. BED ALARM ON FOR SAFETY. CALL BUTTON AND PERSONAL ITEMS IN PT REACH. FAMILY AT BEDSIDE. PT A&O X4, COOERATIVE AND CALM THIS MORNING ROUNDS. 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 WILL CONTINUE TO SEARCH FOR HEARING AID. HRRR PER AUSCULTATION, LCTAB/DIMINISHED LL BILATERALLY. VSS ON RA, AFEBRILE, PERRLA, SCATTERED BRUISING, SCARS, FOOT WOUNDS, REDNESS IN LE BILATERALLY. Q2 TURNS AND HOURLY ROUNDING CONTINUE. PT UP 1-2 ASSIST WITH GAIT BELT AND WALKER, PT VERY WEAK. SCD'S CONTRAINDICATED. IV IN LEFT FA LEAKING, PULLED OUT AND REPLACED IN RIGHT FA 22 GAUGE, FLUIDS RESTARTED AT 50 ML/HR. ACCU CHECKS CONTINUE WITH PO CONTROL. PT DENIES PAIN THIS SHIFT AT THIS TIME. INFECTIOUS DISEASE AND VASCULAR CONSULTED. PT PROGRESSING TOWARDS GOAL. PT TOOK MEDS WELL PO THIS MORNING MED PASS. WILL CONTINUE TO MONITOR PT STATUS AND PROGRESS. PT DID REPORT SOME DISCOMFORT IN RIGHT SHOULDER DUE TO REPOSITIONING AND PUSHING WITH RIGHT ARM. WARM MOIST COMPRESS APPLIED. PT SATISFIED PER PT STATEMENT.
[2018-03-23 16:22] VITALS: BP 108/52
--- NOTE | 2018-03-23 20:03 | NUR ---
PT STABLE AT SHIFT CHANGE. REPORT TO LEGEND MAKER FOR CONTINUED CARES. PT IN RECLINER WITH FEET FLOATED ON PILLOW AND BOOTS ON FOR WOUND PROTECTION. Q2 TURNS, ACCU CHECKS AND HOURLY ROUNDING COMPLETED. MEALS WELL TOLERATED AND CONSUMED. PT PROGRESSING TOWARDS GOAL.
[2018-03-23 22:22] VITALS: BP 120/61
--- NOTE | 2018-03-24 06:48 | NUR ---
PT SLEPT FAIRLY WELL THIS SHIFT. UP IN CHAIR AT START OF SHIFT, BACK TO BED WITH 2PERSON ASSIST, GB, WALKER. DRSG CHANGED TO BOTTOM R FOOT AT HS, CDI TO R COOK. HS ACCUCHECK 184. USING URINAL TO VOID WITH SOME ASSIST OVERNIGHT. AM LABS REFUSED, WANTS TO WAIT UNTIL ARRIVES. DEPENDS ON FOR CONFIRMATION OF MEDS AND ACTIVITIES IT SEEMS, REFUSED SOME MEDS WANTING TO WAIT AND CHECK WITH . RFA IVF INFUSING PER PUMP. VOLTARAN GEL APPLIED TO R SHOULDER AT HS WITH GOOD RESULT. TURNED AND REPOSITIONED Q2 HOURS AND PRN FOR SKIN CARE AND COMFORT.
[2018-03-24 07:45] VITALS: BP 110/53
[2018-03-24 08:09] LABS: HEMOGLOBIN 11.5 gm/dL (14.0-18.0); MPV 7.7 fl. (7.2-11.1); NUCLEATED RBCS 0 /100WBC; WBC 11.2 thou/uL (4.0-11.0)
[2018-03-24 08:11] LABS: HEMATOCRIT 35.4 % (42.0-52.0); MCH 29.7 pg (26.0-34.0); MCHC 32.4 g/dL (28.0-37.0); MCV 91.6 fL (80.0-100.0); PLATELET COUNT* 182 thou/uL (150-400); RBC 3.86 mil/uL (4.50-6.00); RDW-CV 16.5 % (10.5-14.5)
[2018-03-24 08:20] LABS: INR 3.7
[2018-03-24 08:34] LABS: ALBUMIN 2.1 g/dL (3.4-5.0); CALCIUM 8.2 mg/dL (8.5-10.1); POTASSIUM 4.3 mmol/L (3.5-5.1); TOTAL BILIRUBIN 0.6 mg/dL (<0.1-1.0); TOTAL PROTEIN 6.2 g/dL (6.4-8.2)
[2018-03-24 08:46] LABS: ABSOLUTE EOSINOPHILS 0.2 thou/uL (0.0-0.7); ABSOLUTE LYMPHOCYTES 1.6 thou/uL (0.8-5.3); ABSOLUTE MONOCYTES 0.2 thou/uL (0.0-1.2); ABSOLUTE NEUTROPHILS 9.2 thou/uL (1.6-8.1); ANISOCYTOSIS 1+; OVALOCYTES 1+; PLATELET ESTIMATE ADEQUATE; POIKILOCYTOSIS 1+
[2018-03-24 08:52] LABS: CREATININE 3.6 mg/dL (0.6-1.3)
[2018-03-24 16:15] VITALS: BP 132/71
[2018-03-25] VITALS: BP 124/58
[2018-03-25 04:47] LABS: ABSOLUTE EOSINOPHILS 0.1 thou/uL (0.0-0.7); ABSOLUTE LYMPHOCYTES 0.7 thou/uL (0.8-5.3); ABSOLUTE MONOCYTES 1.2 thou/uL (0.0-1.2); BASOPHILS 0.2 %; EOSINOPHILS 0.7 %; HEMATOCRIT 33.3 % (42.0-52.0); HEMOGLOBIN 10.8 gm/dL (14.0-18.0); LYMPHOCYTES 5.4 %; MCH 29.7 pg (26.0-34.0); MCHC 32.4 g/dL (28.0-37.0); MCV 91.5 fL (80.0-100.0); MONOCYTES 9.4 %; MPV 7.2 fl. (7.2-11.1); NUCLEATED RBCS 0 /100WBC; PLATELET COUNT* 183 thou/uL (150-400); POLYS 84.3 %; RBC 3.64 mil/uL (4.50-6.00); RDW-CV 16.3 % (10.5-14.5)
[2018-03-25 05:05] LABS: PREALBUMIN 8.7 mg/dL (18.0-35.7)
[2018-03-25 05:27] LABS: PROTIME 45.7 Seconds (9.20-11.50)
[2018-03-25 05:31] LABS: INR 4.8
[2018-03-25 05:32] LABS: CALCIUM 7.6 mg/dL (8.5-10.1); MAGNESIUM 1.8 mg/dL (1.8-2.4); PHOSPHORUS* 5.2 mg/dL (2.5-4.9); POTASSIUM 4.6 mmol/L (3.5-5.1); TOTAL BILIRUBIN 0.6 mg/dL (<0.1-1.0); TOTAL PROTEIN 5.3 g/dL (6.4-8.2)
[2018-03-25 05:35] LABS: CREATININE 4.6 mg/dL (0.6-1.3)
--- NOTE | 2018-03-25 07:52 | NUR ---
PATIENT SLEPT MOST OF THE NIGHT. IV FLUIDS CONTINUE TO INFUSE AT 100 ML/HR. AL CATH WAS PLACED AT BEGINNING OF SHIFT PER DOCTOR ORDERS FOR CRITICAL I AND O'S. PATIENT HAS ONLY HAD 50 ML OF BLOODY URINE DR. ENNIS NOTIFIED ORDER FOR NORMAL SALINE BOLUS RECEIVED. PATIENT HAS A CRITICAL INR OF 4.8 COUMADIN WAS DISCONTINUED PER ORDER. WILL CONTINUE TO MONITOR.
[2018-03-25 07:54] VITALS: BP 125/64
[2018-03-25 16:00] VITALS: BP 112/68
--- NOTE | 2018-03-25 17:41 | NUR ---
PATIENT HAS BEEN ALERT AND ORIENTED TODAY, SOMEWHAT UNCOOPERATIVE AT TIMES. VERY LITTLE URINE OUTPUT TODAY IM AL. VITAL SIGNS STABLE ON ROOM AIR. NO COMPLAINTS OF ANY PAIN TODAY. FAMILY HAS BEEN AT BEDSIDE TODAY. APPEITE IS GOOD. CALL LIGHT IS IN REACH, WILL CONTINUE TO MONITOR.
[2018-03-25 21:19] VITALS: BP 129/69
[2018-03-26] VITALS (8 sets, daily range): BP systolic 103–136; BP diastolic 49–74
--- NOTE | 2018-03-26 05:23 | NUR ---
PATIENT ALERT AND ORIENTED TO PLACE AND SELF. DENIES PAIN OR NAUSEA. UP WITH 1 ASSIST WALKER AND GAIT BELT. DRESSINGS CHANGED OVER WOUNDS ON RIGHT LOWER LEG. NOTIFIED AROUND 2200 THAT PATIENT HAD NOT HAD ANYTHING OUT IN HIS CATHETER OTHER THAN A FEW DROPS OF BLOOD. SHE WAS NOTIFIED OF WHAT THE PT/INR AND BUN AND CREATININE WERE ON 03/25. SHE SAID THAT WE DID NOT NEED TO CALL HER IF THERE WAS NO URINE THROUGHOUT THE NIGHT BUT TO CALL HER IF VITAL SIGNS BECAME UNSTABLE. PATIENT RESTED QUIETLY THROUGHOUT NIGHT. ONLY A FEW DROPS BLOOD NOTED IN CATHETER BAG. REPOSITIONED EVERY 2 HOURS. BED ALARM ON. CALL LIGHT WITHIN REACH.
[2018-03-26 05:26] LABS: ABSOLUTE EOSINOPHILS 0.2 thou/uL (0.0-0.7); ABSOLUTE LYMPHOCYTES 0.6 thou/uL (0.8-5.3); ABSOLUTE MONOCYTES 0.6 thou/uL (0.0-1.2); ABSOLUTE NEUTROPHILS 5.5 thou/uL (1.6-8.1); BASOPHILS 0.3 %; EOSINOPHILS 2.6 %; HEMATOCRIT 29.9 % (42.0-52.0); HEMOGLOBIN 9.9 gm/dL (14.0-18.0); LYMPHOCYTES 9.1 %; MCHC 32.9 g/dL (28.0-37.0); MCV 91.2 fL (80.0-100.0); MONOCYTES 8.8 %; MPV 7.7 fl. (7.2-11.1); NUCLEATED RBCS 0 /100WBC; PLATELET COUNT* 133 thou/uL (150-400); POLYS 79.2 %; RBC 3.28 mil/uL (4.50-6.00); RDW-CV 16.5 % (10.5-14.5)
[2018-03-26 05:29] LABS: PROTIME 67.7 Seconds (9.20-11.50)
[2018-03-26 05:37] LABS: INR 7.2
[2018-03-26 05:45] LABS: ALBUMIN 2.7 g/dL (3.4-5.0); CALCIUM 8.3 mg/dL (8.5-10.1); CREATININE 5.4 mg/dL (0.6-1.3); POTASSIUM 4.8 mmol/L (3.5-5.1); TOTAL BILIRUBIN 0.5 mg/dL (<0.1-1.0)
--- NOTE | 2018-03-26 06:50 | NUR ---
WAS NOTIFIED OF CRITICAL LABS. NO NEW ORDERS AT THIS TIME.
--- NOTE | 2018-03-26 08:48 | CON ---
[address] [address] CONSULTATION Name: KEVIN EL Room: [address] IN .#: [id number] Admission: 03/20/18 Attend Phys: Jaziel Koehler MD Discharge: Date of : 32 Report #: [id number] THIS REPORT FOR: //name// CC: Jaziel Keys DATE OF SERVICE: 03/25/2018 REFERRING PHYSICIAN: Dr. Koehler. REASON FOR CONSULTATION: Hematuria. HISTORY OF PRESENT ILLNESS: This is an 87-year-old male admitted with multiple medical problems. Urology is consulted regarding hematuria. Nephrology is following the patient due to acute renal failure. Ochoa catheter was placed for fluid monitoring despite a postvoid residual of 0 by bladder scan. Since then, the patient's reports gross hematuria. They denied prior problems with hematuria. Denied prior problems with urinary retention or difficulty emptying the bladder. The patient does report he saw Dr. Cottrell years ago and has been on Flomax since then for BPH with good control of his voiding symptoms. That is managed by Dr. Keys. The patient denies flank pain or fever. He is anticoagulated chronically due to CHF and a prosthetic valve. PAST MEDICAL HISTORY: As above. Has a history of diabetes with lower extremity ulcers, severe vascular disease, coronary artery disease, cardiomyopathy, congestive heart failure, aortic valve replacement, lower extremity bypass surgery, hyperlipidemia, toe amputations, hypertension. MEDICATIONS: List is reviewed. ALLERGIES: Include LASIX, BERYL INHIBITORS and PENICILLIN. SOCIAL HISTORY: States he quit smoking years ago. Does not drink alcohol. FAMILY HISTORY: Noncontributory as they do not know of any family history of kidney disease. REVIEW OF SYSTEMS: As per the history of present illness. The patient denies chest pain or palpitations. He has chronic shortness of breath. Denies dysuria. PHYSICAL EXAMINATION: VITAL SIGNS: Temperature 36.3, pulse 63, respirations 20, blood pressure 125/64. GENERAL: This is an 87-year-old male in no acute distress. He is hard of hearing, but able to answer some questions. [place] [address] CONSULTATION Name: KEVIN EL Room: [address] IN [facility]#: [id number] Admission: 03/20/18 Attend Phys: Jaziel Koehler MD Discharge: Date of : 32 Report #: [id number] history. HEENT: Normocephalic, atraumatic. NECK: Supple. RESPIRATORY: Effort and excursion are normal. Chest wall is nontender. ABDOMEN: Soft, nontender, nondistended. Spine and costovertebral angles are nontender. GENITOURINARY: Reveals normal penile and scrotal skin. There are no testicular masses. Urethral meatus is orthotopic. The patient is uncircumcised with mild phimosis. Urethral meatus is orthotopic. There is a Ochoa catheter in place draining a scant amount of bloody urine. His urine output has been poor. The patient is unable to stand or transfer to his bed at this time for rectal exam which is therefore deferred. LABORATORY STUDIES: Include hemoglobin 10.8, white count 13.0, platelet count 183,000. Sodium 131, potassium 4.6, chloride 99, CO2 of 22, BUN 71, creatinine 4.6, glucose 101. Renal ultrasound was unremarkable. INR is 4.8. Urinalysis is ordered, but has not been sent due to the scant amount of urine. IMPRESSION: Gross hematuria likely due to instrumentation and anticoagulation. We will defer management of his elevated INR to the primary service. We will order a noncontrast CT scan (given his renal failure) to evaluate his upper tracts in some more detail. Unfortunately, given the degree of anticoagulation, gross hematuria with instrumentation is not unexpected. I would defer other workup depending on results of CT scan and his progress. We can certainly reevaluate this after recovery from his acute illness. <ELECTRONICALLY SIGNED> By: Roderick Garcia MD 03/26/18 0848 1410 2006Roderick Garcia MD /nt
[2018-03-26 16:42] LABS: PROTIME 30.3 Seconds (9.20-11.50)
[2018-03-26 16:45] LABS: INR 3.2
--- NOTE | 2018-03-26 17:54 | NUR ---
ASSUMED CARES OF PT AT 0700. PT IN BED, BED IN LOW LOCKED POSITION. CALL BUTTON AND PERSONAL ITEMS IN PT REACH. PT A&O X4, COOPERATIVE. PT V-PACED ON HEART MONITOR. CARDIOLOGY CONSULTS SUBMITTED. VSS ON RA WITH RESPIRATIONS OFTEN IN THE MID TO UPPER 20'S. HOURLY ROUNDING, ACCU CHECKS AND Q2 TURNS COMPLETED PT WOULD ALLOW Q2 TURNS, SOME TURNS PT REFUSED. 2 UNITS FFP GRAVITY ADMINISTERED. INR IMPROVED TO 3.2. RENAL BIOPSY SCHEDULED FOR TOMORROW, PT NPO AFTER 0000. RIGHT FA IV PATENT WITH NS AT 65 ML/HR. CONSULTS INCLUDE CARDIOLOGY, NEPHROLOGY AND UROLOGY. POSSIBLE TO RECEIVE TEMPORARY DIALYSIS CATH PER NEPHROLOGY. PT UP TWO ASSIST WITH WALKER AND GAIT BELT TO BATHROOM. REPORT TO BE GIVEN TO TEMPER MILL OPERATOR FOR CONTINUED CARES. WILL CONTINUE TO MONITOR PT STATUS AND PROGRESS.
[2018-03-27 00:20] VITALS: BP 158/91
[2018-03-27 04:23] LABS: HEMATOCRIT 31.5 % (42.0-52.0); HEMOGLOBIN 10.4 gm/dL (14.0-18.0)
[2018-03-27 04:24] VITALS: BP 128/66
[2018-03-27 04:36] LABS: APTT 51.9 Seconds (25.0-31.3); INR 3.7; PROTIME 35.5 Seconds (9.20-11.50)
[2018-03-27 04:39] LABS: ALBUMIN 2.5 g/dL (3.4-5.0); CALCIUM 8.2 mg/dL (8.5-10.1); CREATININE 6.2 mg/dL (0.6-1.3); POTASSIUM 5.4 mmol/L (3.5-5.1)
--- NOTE | 2018-03-27 04:45 | NUR ---
PATIENT RESTING QUIETLY THROUGHOUT NIGHT. NO C/O N/V OR PAIN. PATIENT REPOSITIONED AT LEAST EVERY 2HOURS, AT TIMES PATIENT REPOSITIONING SELF. DRESSING DRY AND INTACT TO LOWER EXTREMITIES. IVF INFUSING WITHOUT DIFFICULTY. NPO AT THIS TIME. CONTINUES TO ONLY HAVE A SCANT AMOUNT OF BLOODY URINE IN CATHETER BAG. CONTINUES ON PO ANTIBIODICS. BED ALARM ON. CALL LIGHT WITHIN REACH
[2018-03-27 07:50] VITALS: BP 144/76
[2018-03-27 10:08] LABS: IgA 538 mg/dL (61-437); IgG 939 mg/dL (700-1600); IgM 45 mg/dL (15-143)
--- NOTE | 2018-03-27 15:43 | CON ---
[address] [address] CONSULTATION Name: KEVIN EL Room: [address] IN [facility]#: [id number] Admission: 03/20/18 Attend Phys: Jaziel Koehler MD Discharge: Date of : 32 Report #: [id number] THIS REPORT FOR: //name// CC: Jaziel Koehler Eben Keys DATE OF SERVICE: 03/24/2018 Nephrology Consultation CONSULTING PHYSICIAN: Jaziel Koehler MD REASON FOR CONSULTATION: Acute kidney injury. HISTORY OF PRESENT ILLNESS: A 67-year-old gentleman with no known previous history of kidney disease, no regular NSAID use, who was admitted with cellulitis and diabetic foot ulcer. He has been on antibiotics and being followed by infectious disease. His serum creatinine increased, which is why I was consulted. His creatinine dropped from 2.1 to 3.6. His vancomycin and Lasix were discontinued. He has had diminished appetite, thought to be due to the antibiotics, but otherwise appears to be comfortable and does not have any complaints at this time. REVIEW OF SYSTEMS: Constitutional, psych, heme, eyes, ENT, respiratory, cardiac, GI, , and endocrine, all negative except as documented above. PAST MEDICAL HISTORY: Aortic valve replacement in 08/2014, a-fib, coronary artery disease, peripheral vascular disease with history of fem to tib artery bypass and fem-pop bypass, as well as left toe amputation and history of right great toe and second toe amputation, dyslipidemia, diabetes type 2, pacemaker. FAMILY HISTORY: Not pertinent for this 87-year-old gentleman. SOCIAL HISTORY: Former smoker. PHYSICAL EXAMINATION: VITAL SIGNS: Blood pressure 110/53, pulse 64, temperature 36.9. GENERAL: No acute distress. EYES: Extraocular movements intact. EARS: Externally normal. CARDIOVASCULAR: Regular rate. LUNGS: No crackles. ABDOMEN: Soft. LYMPHATICS: No pitting edema. PSYCHIATRIC: Awake, [place] [address] CONSULTATION Name: KEVIN EL Room: [address]#: [id number] Admission: 03/20/18 Attend Phys: Jaziel Koehler MD Discharge: Date of : 32 Report #: [id number] LABORATORY DATA: White cell count 11.2, hemoglobin 11.5, platelets 182. Sodium 135, potassium 4.3, chloride 101, bicarbonate 26, BUN 61, creatinine 3.6, glucose 120, calcium 8.2, albumin 2.1. ASSESSMENT: 1. Acute kidney injury with a creatinine increasing from 2.1 on 03/23 to 3.6 on 03/24. Vancomycin and Lasix were discontinued on 03/24. 2. Chronic kidney disease stage 3 with baseline creatinine, which appears to be 1.4 to 1.6. 3. Hypoalbuminemia with albumin of 2.1. 4. Diabetic foot ulcer. 5. Peripheral vascular disease. 6. Coronary artery disease. 7. History of atrial fibrillation. 8. History of aortic valve replacement. 9. Permanent pacemaker. PLAN: 1. We will increase IV fluids from 50 mL an hour to 100 mL an hour. Lasix has been discontinued. We will order a chest x-ray for the a.m. 2. Check magnesium. 3. Check CK. 4. Check vancomycin level in the a.m. 5. Check UA with micro. 6. Check renal ultrasound. 7. Check bladder scan. 8. Strict Is and Os. 9. A.m. labs. Thank you for requesting my opinion in the care of this patient. <ELECTRONICALLY SIGNED> By: Jose Beard MD 03/27/18 1543 [id number] Beard MD /nt
--- NOTE | 2018-03-27 17:40 | NUR ---
PATIENT HAS BEEN ALERT AND ORIENTED TODAY, VITAL SIGNS STABLE ON ROOM AIR. NO COMPLAINTS OF ANY PAIN TODAY. TEMPORARY DIALYSIS CATH PLACED TODAY AND DIALYSIS STARTED THIS AFTERNOON. FAMILY HAS BEEN AT BEDSIDE MOST OF THE DAY. CALL LIGHT IS IN REACH, WILL CONTINUE TO MONITOR. VASCULAR CHANGED DRESSING TODAY AND TOOK PICTURES OF WOUNDS.
--- NOTE | 2018-03-27 18:22 | CON ---
[address] [address] CONSULTATION Name: FELICITY ELDDSTACY Higgins Room: [address] IN .R.#: [id number] Admission: 03/20/18 Attend Phys: Jaziel Koehler MD Discharge: Date of : 32 Report #: [id number] THIS REPORT FOR: //name// CC: Jaziel Keys DO DATE OF SERVICE: 03/27/2018 HISTORY OF PRESENT ILLNESS: The patient is an 87-year-old white male who I was asked to see in the hospital today to manage anticoagulation. The patient had previous stents placed in his LAD by Dr. Meraz. He had previous TAVR done at for aortic stenosis in 2014. He has permanent AFib and has been chronically anticoagulated. In 2016, I implanted a single chamber pacemaker for symptomatic bradycardia. I actually last saw him in the cardiology clinic in December when I checked his pacemaker and it was working fine. He recently developed a diabetic foot ulcer. He was found to have evidence of PAD. He has had previous bypass surgery in both his right and left legs. He denies any recent chest pain, shortness of breath, palpitations, or syncope. He ambulates with a walker. He checks his INRs at home. He was actually just admitted to the hospital a week ago. He was brought to the emergency room with redness of the right lower extremity. He has been getting wound treatments, but no longer on any antibiotics. He is felt to have cellulitis. He was noted to have an elevated INR. The warfarin was held. He was given plasma. He was noted to have worsening renal function. A temporary dialysis catheter was placed today. He is thought to be in need of a kidney biopsy. Cardiology consultation was requested. PAST MEDICAL HISTORY: Otherwise significant for cataract extraction. He has had several toes amputated in the past. MEDICATIONS: Consists of Lipitor, Proscar, metformin, metoprolol, Flomax, and warfarin. ALLERGIES: To PENICILLIN. FAMILY HISTORY: Negative for heart disease. SOCIAL HISTORY: He is . He and his live in [place], [place]. 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 He quit smoking years ago. No alcohol abuse. REVIEW OF SYSTEMS: He has had no history of stroke, asthma, peptic ulcer disease, or liver disease. He has chronic kidney disease. No cancer[place] [address] CONSULTATION Name: KEVIN EL Room: [address]#: [id number] Admission: 03/20/18 Attend Phys: Jaziel Koehler MD Discharge: Date of : 32 Report #: [id number] PHYSICAL EXAMINATION: GENERAL: Revealed an elderly male, lying in bed, he appeared in no acute distress. VITAL SIGNS: He had a blood pressure 140/70, pulse 60. He is afebrile. HEENT: He was anicteric. Conjunctivae are pink. Mucous membranes are moist. NECK: Veins nondistended. Neck is supple. CHEST: Clear to auscultation. HEART: Regular rate and rhythm, grade 2 systolic ejection murmur. ABDOMEN: Soft. EXTREMITIES: No edema. SKIN: Cool and dry. NEUROLOGIC: Nonfocal seen. On the monitor, he appears to be in a paced rhythm. His last echocardiogram just done in December showed ejection fraction 45%, left atrial enlargement, there was an artificial valve noted in the aortic position, no stenosis. There was only mild insufficiency of the valve. There was moderate mitral regurgitation, moderate tricuspid insufficiency, pulmonary artery pressure 45 mmHg. His lab work, sodium 128, creatinine 6.2, albumin is only 2.5. His INR is 3.7. White blood cell count 6.0, hemoglobin 10.4. He had a chest x-ray done 2 days ago that showed cardiomegaly, aortic valve stent in place, single chamber pacemaker, atelectasis, no effusions. IMPRESSION AND RECOMMENDATIONS: 1. Diabetes. 2. Sick sinus syndrome. The patient is ventricular paced. 3. Peripheral arterial disease. Previous bypass surgery on both legs. 4. Previous transcatheter aortic valve replacement. Valve appears to be functioning normally. 5. Permanent atrial fibrillation. The patient has been chronically anticoagulated. 6. Hypertension. The patient is on a beta lore. 7. Renal failure. The patient is being considered for dialysis. 8. Anemia. No history of bleeding. 9. Coronary artery disease. Previous stents. No recent angina. 10. Hyperlipidemia. The patient is on a statin drug. 11. Foot wound. The patient admitted with cellulitis. 12. Need for kidney biopsy. I would hold warfarin at this time. When it is felt to be safe and after surgery, I think it is reasonable to resume warfarin and maintain an INR of 2 to 3. <ELECTRONICALLY SIGNED> By: Tony Cole MD, FACC 03/27/18 1822 [id number] Cole MD, FAC /nt
[2018-03-27 20:05] VITALS: BP 133/67
[2018-03-27 23:53] VITALS: BP 126/59
[2018-03-28 04:06] VITALS: BP 131/62
[2018-03-28 04:35] LABS: HEMATOCRIT 30.7 % (42.0-52.0); HEMOGLOBIN 10.2 gm/dL (14.0-18.0); MCH 30.1 pg (26.0-34.0); MCHC 33.2 g/dL (28.0-37.0); MCV 90.7 fL (80.0-100.0); MPV 7.5 fl. (7.2-11.1); NUCLEATED RBCS 0 /100WBC; PLATELET COUNT* 188 thou/uL (150-400); RBC 3.38 mil/uL (4.50-6.00); RDW-CV 16.8 % (10.5-14.5); WBC 8.7 thou/uL (4.0-11.0)
[2018-03-28 04:44] LABS: INR 2.8; PROTIME 26.5 Seconds (9.20-11.50)
[2018-03-28 04:56] LABS: PREALBUMIN 11.4 mg/dL (18.0-35.7)
[2018-03-28 04:57] LABS: ALBUMIN 2.6 g/dL (3.4-5.0); CALCIUM 8.1 mg/dL (8.5-10.1); CREATININE 5.5 mg/dL (0.6-1.3); PHOSPHORUS* 6.7 mg/dL (2.5-4.9); POTASSIUM 4.6 mmol/L (3.5-5.1); TOTAL BILIRUBIN 0.7 mg/dL (<0.1-1.0); TOTAL PROTEIN 5.8 g/dL (6.4-8.2)
[2018-03-28 05:45] LABS: ABSOLUTE EOSINOPHILS 0.1 thou/uL (0.0-0.7); ABSOLUTE MONOCYTES 0.5 thou/uL (0.0-1.2); ANISOCYTOSIS 1+; PLATELET ESTIMATE ADEQUATE; POIKILOCYTOSIS 1+
--- NOTE | 2018-03-28 06:49 | NUR ---
PT SLEPT ON AND OFF OVERNIGHT. AO, FORGETFUL. HS ACCUCHECK 126.DRSG INTACT TO R FOOT, TUBIGRIP TO LLE. DIALYSIS TEMP CATH TO R NECK. TURNED AND REPOSITIONED Q2 HOURS AND PRN FOR SKIN CARE AND COMFORT, PT REFUSING AT TIMES. AM LABS DRAWN. R FA SL, ABX GIVEN ORDERED. PACEMAKER, TELE V PACED. PT FORGETFUL AND AGITATED THIS MORNING, WANTING TO URINATE IN TRASH CAN, REMINDED OF AL CATH IN PLACE AND PT CALMED. CALL LITE IN EASY REACH, ABLE TO USE CALL LITE AND MAKE NEEDS KNOWN.
[2018-03-28 08:00] VITALS: BP 138/60
[2018-03-28 15:11] LABS: KAPPA FREE LIGHT CHAINS 165.6 mg/L (3.3-19.4); LAMBDA FREE LIGHT CHAINS 165.9 mg/L (5.7-26.3)
[2018-03-28 15:11] LABS: HEPATITIS B SURFACE AG Negative (Negative)
[2018-03-28 16:00] VITALS: BP 147/71
--- NOTE | 2018-03-28 17:19 | NUR ---
PATIENT A&OX4,FORGETFUL. CAN BECOME CONFUSED AFTER NAPS LATER DURING THE DAY. ON ROOM AIR, IV RIGHT FOREARM SALINE LOCK. UP WITH MAX ASSISTX2 WITH WALKER AND GAITBELT. DIABETIC SHOES TO BE ON WHEN UP OUT OF BED. DRESSING TO RIGHT FOOT CHANGED, WOUND CLEANED. FOLETY CATHTER, MINIMAL OUTPUT, RED IN COLOR. NO C/O PAIN/N/V. NO OTHER CONCERNS AT THIS TIME. APPROPRIATE AND COOPORATIVE WITH CARE. DR. DREW CONCERNED WITH CARDIOLOGY CONSULT. CARDIOLOGY SEEN PATIENT ON 03/27/18. STATES TO HOLD COUMADIN. ONCE INR SAFE CAN HAVE KIDNEY BIOPSY, RESUME COUMADIN AFTER SURGERY. CONSULT PRINTED AND PLACED ON CHART.
[2018-03-28 19:36] VITALS: BP 153/81
[2018-03-29] VITALS: BP 165/83
[2018-03-29 04:00] VITALS: BP 147/77
--- NOTE | 2018-03-29 05:13 | NUR ---
ASSESSMENT COMPLETE. PT SLEPT THROUGH THE NIGHT WITHOUT ANY CONCERNS. PT REFUSED Q2 TURNS. IV ABX GIVEN SCHEDULED. AL IN PLACE. PT HAS [place]QA[place] SATS ON ROOM AIR. DENIES PAIN AND N/V. IV IN RIGHT FOREARM, SALINE LOCKED AND FLUSHES WITHOUT DIFFICULTY. SEE ASSESSMENT AND VITALS FOR OTHER DETAILS. CALL LIGHT WITHIN REACH, BED ALARM ON. WILL CONTINUE PLAN OF CARE
[2018-03-29 07:06] LABS: M-SPIKE Not Observed g/dL (Not Observed)
[2018-03-29 09:26] LABS: ABSOLUTE BASOPHILS 0.1 thou/uL (0.0-0.2); ABSOLUTE EOSINOPHILS 0.2 thou/uL (0.0-0.7); ABSOLUTE LYMPHOCYTES 0.8 thou/uL (0.8-5.3); ABSOLUTE NEUTROPHILS 8.3 thou/uL (1.6-8.1); BASOPHILS 0.5 %; EOSINOPHILS 2.1 %; HEMATOCRIT 32.4 % (42.0-52.0); HEMOGLOBIN 10.8 gm/dL (14.0-18.0); MCHC 33.2 g/dL (28.0-37.0); MCV 90.4 fL (80.0-100.0); MONOCYTES 9.3 %; MPV 7.3 fl. (7.2-11.1); NUCLEATED RBCS 0 /100WBC; PLATELET COUNT* 232 thou/uL (150-400); POLYS 80.1 %; RBC 3.59 mil/uL (4.50-6.00); RDW-CV 16.7 % (10.5-14.5); WBC 10.3 thou/uL (4.0-11.0)
[2018-03-29 09:35] LABS: ALBUMIN 2.7 g/dL (3.4-5.0); CALCIUM 8.3 mg/dL (8.5-10.1); CREATININE 5.4 mg/dL (0.6-1.3); POTASSIUM 4.5 mmol/L (3.5-5.1); TOTAL BILIRUBIN 0.7 mg/dL (<0.1-1.0)
[2018-03-29 09:50] LABS: INR 1.7; PROTIME 16.2 Seconds (9.20-11.50)
[2018-03-29 10:11] LABS: ALBUMIN 2.8 g/dL (3.4-5.0); CALCIUM 8.5 mg/dL (8.5-10.1); CREATININE 5.5 mg/dL (0.6-1.3); PHOSPHORUS* 5.8 mg/dL (2.5-4.9); POTASSIUM 4.9 mmol/L (3.5-5.1)
[2018-03-29 10:28] LABS: GLOMERULR BASEM MEMBRN AB 5 units (0-20)
--- NOTE | 2018-03-29 12:14 | NUR ---
WOUND CARE NOTE: CONSULT RECEIVED FOR FOOT WOUNDS. PATIENT PRESENTS WITH MANY DIFFERENT AREAS OF SKIN BREAKDOWN. RIGHT 3RD TOE: DISCOLORATION WITH BLISTERING. BLISTER SEEMS TO BE RESOLVING, PURPLE DISCOLORATION NOW REMAINS. THIS WAS PAINTED WITH BETADINE. RIGHT MEDAIL LEG: ULCERATION MEASURING 2.3X1.2X0.1. DRY, YELLOW WOUND BED. THIAGO-WOUND INTACT. CLEANSED WITH WOUND CLEANSER, PATTED DRY. APPLIED OPTIFOAM AG AND SECURED WITH KERLIX. RIGHT FOOT, PLANTAR SURFACE, MEDIAL: 0.9X1.4X0.2. MOIST, YELLOW WOUND BED. CLEANSED WITH WOUND CLEANSER, PATTED DRY. APPLIED AQUACEL AG AND COVERED WITH ABD. SECURED WITH KERLIX. RIGHT FOOT, PLANTAR SURFACE, LATERAL: 2.3X1.8X1.6. MOIST, YELLOW WOUND BED WITH ADHERENT YELLOW MOIST SLOUGH TISSUE. THIAGO-WOUND WITH MACERATION. CLEANSED WITH WOUND CLEANSER, PATTED DRY. APPLIED AQUACEL AG AND COVERED WITH ABD. SECURED WITH KERLIX. RECOMMEND SURGICAL SHOE WHEN AMBULATING/TRANSFERING. ENCOURAGE GOOD NUTRITION/HYDRATION FOLLOW UP IN WOUND CENTER FOR HBO TREATMENT.
[2018-03-29 12:26] VITALS: BP 149/76
[2018-03-29 15:07] LABS: ANA INTERPRETATION Negative (Negative)
[2018-03-29 16:40] VITALS: BP 124/70
--- NOTE | 2018-03-29 17:15 | NUR ---
PATIENT A&OX4, FORGETFUL, ROOM AIR, IV RIGHT FOREARM SALINE LOCK. UP WITH ASSISTX2 WITH WALKER AND GAITBELT, WEAK. AL CATHETER, MINIMAL TO NO OUPUT, BLOODY TINGED. NO C/O PAIN/N/V. DRSG TO RIGHT FOOT AND LEG C/D/I, CHANGED BY WOUND NURSE. SCHEDULED FOR KIDNEY BIOPSEY TOMORROW MORNING. NO OTHER CONCERNS AT THIS TIME. APPROPRIATE AND COOPORATIVE WITH CARE.
[2018-03-29 20:03] VITALS: BP 128/68
[2018-03-29 23:59] VITALS: BP 150/79
[2018-03-30] VITALS (15 sets, daily range): BP systolic 97–146; BP diastolic 41–74
[2018-03-30 03:53] LABS: HEMATOCRIT 33.8 % (42.0-52.0); MCH 29.2 pg (26.0-34.0); MCHC 32.4 g/dL (28.0-37.0); MCV 89.9 fL (80.0-100.0); MPV 7.1 fl. (7.2-11.1); RBC 3.76 mil/uL (4.50-6.00); RDW-CV 16.5 % (10.5-14.5); WBC 10.5 thou/uL (4.0-11.0)
[2018-03-30 04:03] LABS: APTT 35.9 Seconds (25.0-31.3); INR 1.7; PROTIME 16.1 Seconds (9.20-11.50)
[2018-03-30 04:36] LABS: ALBUMIN 2.4 g/dL (3.4-5.0); CALCIUM 8.5 mg/dL (8.5-10.1); PHOSPHORUS* 6.4 mg/dL (2.5-4.9); POTASSIUM 4.7 mmol/L (3.5-5.1)
[2018-03-30 04:43] LABS: CREATININE 6.5 mg/dL (0.6-1.3)
--- NOTE | 2018-03-30 06:14 | NUR ---
PT TO DIALYSIS WITH CHART ACCOMPANIED BY THIS RN AND DIALYSIS NURSE, PER BED.
--- NOTE | 2018-03-30 06:43 | NUR ---
PT SLEPT FAIRLY WELL OVERNIGHT. HS ACCUCHECK 167. TURNED AND REPOSITIONED Q2 HOURS AND PRN PT WOULD ALLOW FOR SKIN CARE AND COMFORT. DRSG CDI TO RLE.TUBIGRIP IN PLACE LLE. AL WITH 40ML BLOODY DRAINAGE OVERNIGHT. RFA IV SL, ABX GIVEN. AM LABS DRAWN THIS MORNING. PT AOX4, FORGETFUL AND APPEARS A LITTLE CONFUSED OVERNIGHT AT TIMES. DENIES PAIN. NPO SINCE MIDNIGHT FOR KIDNEY BIOPSY TODAY. CALL LITE IN EASY REACH, BED ALARM ON FOR SAFETY.
[2018-03-30 14:10] LABS: INR 1.4
--- NOTE | 2018-03-30 14:47 | NUR ---
CM SPOKE TO THE PATIENT SPOUSE TO DISCUSS DISCHARGE PLANNING NEEDS, AND ANY QUESTIONS OR CONCERNS THAT THEY MAY HAVE. PATIENT'S SPOUSE HAS NO QUESTIONS OR CONCERNS AT THIS TIME AND STATES THAT SHE 'STILL HOPES TO BE ABLE TO HAVE THE PATIENT RETURN HOME AT D/C'. CM WILL REMAIN AVAILABLE TO ASSIST AND FOLLOW NEEDED.
[2018-03-31] VITALS (7 sets, daily range): BP systolic 138–161; BP diastolic 55–81
--- NOTE | 2018-03-31 04:44 | NUR ---
ASSUMED CARE OF PT AT 1900 PT ALERT AND ORIENTED X 4 BUT CONFUSED AT TIMES. PT VS AND ASSESSMENT STABLE PT DENIED ANY COMPLAINTS AND SLEPT THROUGH THE NIGHT. PT V PACED ON THE MONITOR. WILL CONTINUE PLAN OF CARE.
[2018-03-31 12:32] LABS: HEMATOCRIT 32.4 % (42.0-52.0); HEMOGLOBIN 10.6 gm/dL (14.0-18.0); MCH 29.7 pg (26.0-34.0); MCHC 32.7 g/dL (28.0-37.0); MCV 90.7 fL (80.0-100.0); MPV 7.3 fl. (7.2-11.1); NUCLEATED RBCS 0 /100WBC; PLATELET COUNT* 213 thou/uL (150-400); RBC 3.57 mil/uL (4.50-6.00); RDW-CV 16.8 % (10.5-14.5); WBC 11.5 thou/uL (4.0-11.0)
[2018-03-31 12:41] LABS: ALBUMIN 2.9 g/dL (3.4-5.0); CALCIUM 8.7 mg/dL (8.5-10.1); POTASSIUM 4.5 mmol/L (3.5-5.1); TOTAL BILIRUBIN 0.7 mg/dL (<0.1-1.0); TOTAL PROTEIN 6.4 g/dL (6.4-8.2)
[2018-03-31 12:42] LABS: CREATININE 5.4 mg/dL (0.6-1.3)
[2018-03-31 13:15] LABS: ABSOLUTE EOSINOPHILS 0.2 thou/uL (0.0-0.7); ABSOLUTE LYMPHOCYTES 0.8 thou/uL (0.8-5.3); ABSOLUTE NEUTROPHILS 9.4 thou/uL (1.6-8.1); PLATELET ESTIMATE ADEQUATE
--- NOTE | 2018-03-31 20:22 | NUR ---
PT REMAINS ON UNIT FOR CELLULITIS TO RLE AND DIABETIC ULCER TO RT FOOT, PT ON ACCU CHECK ACHS, NO INSULIN AT THS TIME, PT IS V- PACED AT 60bpm, AL CATHETER IN PLACE WITH MINIMAL OUT PUT NOTED, DIALYSIS SCHDEULED FOR 04/02/18 AND LABS ORDERED, IV TO LEFT FA FLUSHED. CURRENTLY SALINE LOCKED. PT ABLE TO MAKE NEEDS KNOWN, NO C/O PAIN NOTED, HOURLY ROUNDING MAINTAINED
[2018-04-01 03:56] VITALS: BP 165/79
[2018-04-01 04:23] LABS: ABSOLUTE BASOPHILS 0.1 thou/uL (0.0-0.2); ABSOLUTE EOSINOPHILS 0.2 thou/uL (0.0-0.7); ABSOLUTE MONOCYTES 1.2 thou/uL (0.0-1.2); ABSOLUTE NEUTROPHILS 10.8 thou/uL (1.6-8.1); BASOPHILS 0.5 %; EOSINOPHILS 1.6 %; HEMATOCRIT 34.5 % (42.0-52.0); HEMOGLOBIN 11.3 gm/dL (14.0-18.0); LYMPHOCYTES 7.5 %; MCH 29.1 pg (26.0-34.0); MCHC 32.6 g/dL (28.0-37.0); MONOCYTES 8.8 %; NUCLEATED RBCS 0 /100WBC; PLATELET COUNT* 232 thou/uL (150-400); POLYS 81.6 %; RBC 3.87 mil/uL (4.50-6.00); RDW-CV 16.7 % (10.5-14.5); WBC 13.2 thou/uL (4.0-11.0)
[2018-04-01 04:52] LABS: ALBUMIN 2.6 g/dL (3.4-5.0); CALCIUM 8.5 mg/dL (8.5-10.1); TOTAL BILIRUBIN 0.8 mg/dL (<0.1-1.0); TOTAL PROTEIN 6.2 g/dL (6.4-8.2)
[2018-04-01 04:56] LABS: CREATININE 6.8 mg/dL (0.6-1.3)
--- NOTE | 2018-04-01 07:41 | NUR ---
ASSUMED CARE OF PATIENT AT 1900 THE PATIENT REMAI ON THE MONITOR O2 SAT MAINTAINED ON THE RA CONTINUES TO BE NEDREST DURING NIGHT OFTEN REFUSING TURNS DESPITE ENCOURAGEMENT THE ROUTINE REGIMEN CONTINUES TO BE EFFECTIVE FOR SX MANAGEMENT SAFETY INTERVENTIONS CONTINUE BED LOWERED WHEELS LOCKED CALL LIGHT IN REACH SIDE RAILS UP REPORT TO BE GIVEN TO ONCOMING RN IN AM PATIENT TRANSFERRED TO DIALYSIS
[2018-04-01 11:25] VITALS: BP 128/64
--- NOTE | 2018-04-01 18:03 | NUR ---
SHIFT NOTE - PT HAD DIALYSIS THIS AM. THEY PULLED OFF 2.3L. TOLERATED WELL. FAMILY PRESENT AT BEDSIDE. V-PACED IN MONITOR. IV SL IN R FA FLUSHES WELL. SERVANDO PRESENT DRAINING WELL.
[2018-04-02] VITALS: BP 134/74
[2018-04-02 04:00] VITALS: BP 158/83
[2018-04-02 04:11] LABS: HEMATOCRIT 35.9 % (42.0-52.0); HEMOGLOBIN 11.7 gm/dL (14.0-18.0); MCH 29.5 pg (26.0-34.0); MCHC 32.7 g/dL (28.0-37.0); MCV 90.4 fL (80.0-100.0); MPV 7.3 fl. (7.2-11.1); RBC 3.97 mil/uL (4.50-6.00); RDW-CV 17.3 % (10.5-14.5); WBC 8.7 thou/uL (4.0-11.0)
[2018-04-02 04:39] LABS: CALCIUM 8.5 mg/dL (8.5-10.1); MAGNESIUM 2.2 mg/dL (1.8-2.4)
[2018-04-02 04:46] LABS: CREATININE 5.3 mg/dL (0.6-1.3)
--- NOTE | 2018-04-02 05:28 | NUR ---
ASSESSMENT COMPLETE. PT SLEPT THROUGH THE NIGHT WITHOUT ANY CONCERNS. PT ENCOURAGED TO TURN Q2 FOR SKIN INTEGRITY. IV ABX GIVEN ORDERED. BLE ELEVATED WITH PILLOWS. AL IN PLACE. IV IN RIGHT FOREARM, SALINE LOCKED AND FLUSHES WITHOUT DIFFICULTY. PT ON MONITOR, PACED. PT DENIES PAIN AND N/V. SEE ASSESSMENT AND VITALS FOR OTHER DETAILS. CALL LIGHT WITHIN REACH, BED ALARM ON. WILL CONTINUE PLAN OF CARE
[2018-04-02 08:00] VITALS: BP 132/77
[2018-04-02 17:07] VITALS: BP 174/63
--- NOTE | 2018-04-02 17:31 | NUR ---
SHIFT NOTE - PT AMBULATED FROM BED TO BATHROOM. HAD MOD FORMED/BROWN STOOL. PT SAT UP IN CHAIR FOR 4 HOURS THIS EARLY AFTERNOON. IV SL IN R FA. FAMILY PRESENT AT BEDSIDE MOST OF THIS SHIFT. PT TO HAVE DIALYSIS TOMORROW. TEMP DIALYSIS CATH IN PLACE R IJ.
[2018-04-02 20:00] VITALS: BP 160/65
[2018-04-03] VITALS (7 sets, daily range): BP systolic 120–152; BP diastolic 62–87
[2018-04-03 04:22] LABS: HEMATOCRIT 35.4 % (42.0-52.0); HEMOGLOBIN 11.4 gm/dL (14.0-18.0); MCH 29.1 pg (26.0-34.0); MCHC 32.1 g/dL (28.0-37.0); MCV 90.6 fL (80.0-100.0); MPV 7.9 fl. (7.2-11.1); RBC 3.91 mil/uL (4.50-6.00); WBC 13.1 thou/uL (4.0-11.0)
[2018-04-03 04:53] LABS: CALCIUM 8.7 mg/dL (8.5-10.1); MAGNESIUM 2.6 mg/dL (1.8-2.4); PHOSPHORUS* 7.5 mg/dL (2.5-4.9); POTASSIUM 5.6 mmol/L (3.5-5.1)
[2018-04-03 04:58] LABS: CREATININE 6.4 mg/dL (0.6-1.3)
--- NOTE | 2018-04-03 06:57 | NUR ---
PT SLEPT WELL OVERNIGHT. R IJ TEMP DIALYSIS CATH INTACT. AL DRAINING SCANT AMOUNT BLOODY DRAINAGE OVERNIGHT. TELE PACED. HS ACCUCHECK 224. RFA SL IV, ABX GIVEN ORDERED. AM LABS. PT REFUSING TURNS OVERNIGHT. DRSGS CDI TO BLE. CALL LITE IN EASY REACH. BED ALARM ON FOR SAFETY.
--- NOTE | 2018-04-03 11:19 | NUR ---
CONTINUE TO FOLLOW, DISCUSSED WITH DR ENNIS. AWAIT RENAL DIRECTION ON WHETHER PT NEEDS OUTPT DIALYSIS. MET WITH PT AND , PT STATES FEELING 'VERY LITTLE' BETTER. STATES HASN'T BEEN WORKING MUCH WITH THERAPY. PT AND ARE STILL HOPEFUL PT CAN RETURN HOME AND BACK TO OUTPT HBO, PER , 'IF HE'S STRONGER ENOUGH.' DISCUSSED OPTIONS OF HOME WITH OUTPT TX VS SNF, BUT COULDN'T GET HBO TX FROM SNF DUE TO PAYMENT ISSUES. DID BRIEFLY DISCUSS [facility] FOR HBO, DIALYSIS NEEDS AND THERAPY BUT PT BEGAN SHAKING HIS HEAD WHEN MADE AWARE WHERE THE [facility] FACIL[place]IES [place]. WILL FOLLOW
--- NOTE | 2018-04-03 19:31 | NUR ---
LABS ELEVATED THIS AM AND THIS NURSE CALLED DIALYSIS CLINIC TO INQUIRE ABOUT PT, DIALYSIS SCHEDULED FOR LATE AFTERNOON AND IS CURRENTLY STILL IN DIALYSIS, IV MEDS INFUSED ORDERED, IV PATENT AND FLUSHED, PT APPETITE POOR, GLUCERNA PROVIDED AND DRANK WITH SOME SUCCESS, EDUCATION PROVIDED TO PT FAMILY REGARDING NEW DX OF CRESCENTRIC GLOMURELONEPHRITIS, MINIMAL OUTPUT AT 50CC VIA CATHETER THIS SHIFT, NEW ORDER RECEIVED FOR SLIDING SCALE INSULIN, HOURLY ROUNDING MAINTAINED.
[2018-04-04 04:01] VITALS: BP 109/58
[2018-04-04 05:04] LABS: ALBUMIN 2.4 g/dL (3.4-5.0); CALCIUM 8.3 mg/dL (8.5-10.1); CREATININE 5.4 mg/dL (0.6-1.3); PHOSPHORUS* 6.6 mg/dL (2.5-4.9)
--- NOTE | 2018-04-04 07:34 | NUR ---
PT SLEPT FAIRLY WELL OVERNIGHT. DRESSING TO BLE CHANGED AND PICTURES TAKEN AT HS. HS ACCUCHECK 226, INSULIN GIVEN WITH SNACK. TEMP DIALYSIS CATH TO R NECK, DOWN TO DIALYSIS THIS MORNING. RFA IV SL, ABX GIVEN ORDERED. TO HAVE CARDIAC ECHO TODAY. AM LAB DRAWN. PT REFUSING TURNS, EDUCATION GIVEN. ABLE TO USE CALL LITE AND MAKE NEEDS KNOWN. AL WITH SCANT AMOUNT BLOODY URINE OVERNIGHT.
[2018-04-04 11:00] VITALS: BP 114/73
--- NOTE | 2018-04-04 11:04 | NUR ---
Received order from physician to arrange outpatient dialysis at [facility]. Called [facility] and faxed referral. Will await return call re: acceptance and chair time.
--- NOTE | 2018-04-04 13:51 | NUR ---
WOUND CARE NOTE: REASSESSMENT OF RIGHT FOOT/LEG WOUNDS RIGHT LATERAL LEG: HEALING ULCERATION MEASURING 0.7X0.5X0.1, PALE, PINK, MOIST WOUND BED. CLEANSED WITH WOUND CLEANSER, PATTED DRY. APPLIED OPTIFOAM AG AND SECURED WITH KERLIX. RIGHT MEDIAL LEG: HEALING ULCERATION X2, CLUSTERED MEASURES 2X1.4X0.1. AREA IS HEALING, NEW EPITHELIUM TO THIAGO-WOUND. WOUND BED IS MOIST, PALE. CLEANSED WITH WOUND CLEANSER, PATTED DRY. APPLIED OPTIFOAM AG AND SECURED WITH KERLIX. RIGHT PLANTAR, LATERAL: FULL THICKNESS ULCERATION MEASURING 2.1X1.8X2.4 WITH TUNNELING AT 6 O'CLOCK 2.4CM. YELLOW, MOIST, ADHERENT SLOUGH TO ENTIRETY OF WOUND BED. PROBES TO BONE. WOUND NOW CONNENCTS WITH RIGHT PLANTAR MEDIAL FOOT WOUND. CLEANSED WITH WOUND CLEANSER, PATTED DRY. PACKED WITH AQUACEL AG RIGHT PLANTAR, MEDIAL: FULL THICKNESS ULCERATION MEASURING 1X2X0.1. DRY, YELLOW WOUND BED. CLEANSED WITH WOUND CLEANSER, PATTED DRY. NOW CONNENCTS WITH LATERAL PLANTAR WOUND. APPLIED AQUACEL AG OVER WOUND BED. SECURED PLANTAR FOOT WOUNDS WITH ABD THEN KERLIX. UPON WRAPPING PATIENT'S FOOT, NOTICED A DEEP TISSUE INJURY TO HIS RIGHT HEEL MEASURING 4X4.5. PURPLE/MAROON DISCOLORATION WITH BLISTERING. NO OPENING NOTED. PAINTED WITH BETADINE, ALLOWED TO DRY. WRAPPED WITH KERLIX. EDUCATED PATIENT, SON, AND ON IMPORTANCE OF KEEPING HEELS UP OFF BED. USED TWO PILLOWS AND APPROPRIATELY OFFLOADED BOTH HEELS. DEMONSTRATED THE APPROPRIATE WAY TO OFFLOAD HEELS, COMMUNICATED UNDERSTANDING. RECOMMEND KEEP HEELS OFF BED-PODUS BOOTS USED ENCOURAGE GOOD NUTRITION/HYDRATION DAILY DRESSING CHANGES
--- NOTE | 2018-04-04 15:36 | 2DMMODE ---
[place] [address] 2 D/M-MODE ECHOCARDIOGRAM Name: FELICITY ELDDSTACY Higgins Room: [address] IN [facility]#: [id number] Admission: 03/20/18 Attend Phys: Jaziel Koehler, Discharge: Date of : 34 Date of Service: 04/04/18 1536 Report #: [id number] THIS REPORT FOR: //name// APPROVED REPORT Study performed: 04/04/2018 14:49:32 EXAM: Comprehensive 2D, Doppler, and color-flow Echocardiogram Patient Location: In-Patient Room #: [facility] Status: routine BSA: 1.94 HR: 60 bpm BP: 109/58 mmHg Rhythm: NSR Other Information Study Quality: Good Indications Sepsis 2D Dimensions LVEF(%): 72.30 (>50%) IVSd: 11.72 (7-11mm) LVOT Diam: 20.60 (18-24mm) LVDd: 47.03 mm PWd: 11.78 (7-11mm) Ascending Ao: 29.28 (22-36mm) LVDs: 27.55 (25-40mm) Aortic Root: 31.78 mm Corey's LVEF: 72.30 % Volumes Left Atrial Volume (Systole) LA ESV Index: 44.20 mL/m2 Aortic Valve AoV Peak Raul.: 1.55 m/s AO Peak Gr.: 9.67 mmHg LVOT Max P.80 mmHg AO Mean Gr.: 5.56 mmHg LVOT Mean P.78 mmHg LVOT Max V: 1.20 m/s AO V2 VTI: 26.92 cm LVOT Mean V: 0.77 m/s DOMI (VTI): 2.64 cm2 LVOT V1 VTI: 21.30 cm TDI Medial E' Raul.: 0.07 m/[place] [address] 2 D/M-MODE ECHOCARDIOGRAM Name: KEVIN EL Room: [address] IN [facility].#: [id number] Admission: 03/20/18 Attend Phys: Jaziel Koehler, Discharge: Date of : 32 Date of Service: 04/04/18 1536 Report #: [id number] Lateral E' Raul.: 0.09 m/s Pulmonary Valve PV Peak Raul.: 0.88 m/s PV Peak Gr.: 3.10 mmHg Tricuspid Valve RAP Estimate: 5.00 mmHg TR Peak Gr.: 53.06 mmHg RVSP: 58.06 mmHg PA Pressure: 58.06 mmHg Left Ventricle The left ventricle is normal size. There is mild global hypokinesis of the left ventricle. There is normal left ventricular wall thickness. Left ventricular systolic function is mildly decreased. LVEF is 45%. Right Ventricle The right ventricle is normal size. The right ventricular systolic function is normal. Pacemaker lead is present in the right ventricle. Atria Left atrium is moderately dilated. The right atrium size is normal. Aortic Valve Moderate aortic valve sclerosis. Bioprosthetic aortic valve is present. No aortic regurgitation is present. No hemodynamically significant valvular aortic stenosis. Mitral Valve Severe mitral annular calcification. Mild mitral regurgitation. No evidence of mitral valve stenosis. Tricuspid Valve The tricuspid valve is normal in structure. Mild tricuspid regurgitation. Moderate pulmonary hypertension. Pulmonic Valve The pulmonary valve is normal in structure. There is no pulmonic valvular regurgitation. Great Vessels The aortic root is normal in size. IVC is normal in size and collapses with >50% [place] [address] 2 D/M-MODE ECHOCARDIOGRAM Name: KEVIN EL Room: [address]#: [id number] Admission: 03/20/18 Attend Phys: Jaziel Koehler, Discharge: Date of : 34 Date of Service: 04/04/18 1536 Report #: [id number] There is no pericardial effusion. <Conclusion> The left ventricle is normal size. There is normal left ventricular wall thickness. Left ventricular systolic function is mildly decreased. LVEF is 45%. The right ventricle is normal size. Left atrium is moderately dilated. Moderate aortic valve sclerosis. No aortic regurgitation is present. No hemodynamically significant valvular aortic stenosis. Severe mitral annular calcification. Mild mitral regurgitation. No evidence of mitral valve stenosis. The tricuspid valve is normal in structure. Mild tricuspid regurgitation. Moderate pulmonary hypertension. IVC is normal in size and collapses with >50% inspiration There is no pericardial effusion. There is mild global hypokinesis of the left ventricle. Bioprosthetic aortic valve is present. <ELECTRONICALLY SIGNED> By: Roderick Woodson MD, FACC 04/04/18 1536 1536 1536 Roderick Woodson MD, FACC /INF
--- NOTE | 2018-04-04 16:18 | NUR ---
PATIENT HAD DIALYSIS THIS AM, 3L REMOVED. PATIENT UP TO BATHROOM WITH MAX ASSITANCE; GAIT BELT/WALKER UTILIZED. PATIENT HAD MOD BM. AL REMAINS IN PLACE WITH MINIMAL OUTPUT. NO COMPLAINTS OF PAIN. DR. DREW FROM NEPHROLOGY HERE THIS EVENING AND ORDERS TO HAVE DR. CAREY PLACE A DIALYSIS CATH TOMORROW IF OK WITH ID. DR. SHAFFER CONTACTED AND OK FOR PLACEMENT, AWAITING CALL BACK FROM VASCULAR.
[2018-04-04 20:10] VITALS: BP 124/63
[2018-04-05 00:05] VITALS: BP 118/68
[2018-04-05 04:11] VITALS: BP 127/75
[2018-04-05 04:41] LABS: NUCLEATED RBCS 0 /100WBC
[2018-04-05 04:48] LABS: HEMATOCRIT 35.5 % (42.0-52.0); HEMOGLOBIN 11.7 gm/dL (14.0-18.0); MCH 29.4 pg (26.0-34.0); MCHC 32.9 g/dL (28.0-37.0); MCV 89.6 fL (80.0-100.0); MPV 7.6 fl. (7.2-11.1); PLATELET COUNT* 226 thou/uL (150-400); RBC 3.96 mil/uL (4.50-6.00); RDW-CV 16.9 % (10.5-14.5)
[2018-04-05 05:12] LABS: ALBUMIN 2.5 g/dL (3.4-5.0); CALCIUM 8.3 mg/dL (8.5-10.1); POTASSIUM 4.9 mmol/L (3.5-5.1); TOTAL BILIRUBIN 0.5 mg/dL (<0.1-1.0); TOTAL PROTEIN 6.1 g/dL (6.4-8.2)
[2018-04-05 05:13] LABS: CREATININE 4.1 mg/dL (0.6-1.3)
--- NOTE | 2018-04-05 05:13 | NUR ---
PT SLEPT WELL OVERNIGHT. RFA SL ABX GIVEN ORDERED. HS ACCUCHECK 173, INSULIN GIVEN. SKIN CARE BOOTS ON BLE. DRSG CDI RLE. TUBIGRIP IN PLACE LLE. AL WITH SCANT AMOUNT BLOODY DRAINAGE PRESENT IN BAG. HS ACCUCHECK 173, INSULIN GIVEN OREDERED. NPO AFTER MIDNIGHT, POSSIBLY HAVING DIALYSIS CATH PLACE TOMORROW IN IR. ENCOURAGED TO TURN AND REPOSITION Q2 HOURS AND PRN FOR SKIN COMFORT, RELUCTANT TO TURN, REPOSITIONED WITH PILLOW PT WOULD ALLOW. AM LABS DRAWN.ABLE TO USE CALL LITE AND MAKE NEEDS KNOWN.
[2018-04-05 05:24] LABS: PREALBUMIN 17.9 mg/dL (18.0-35.7)
[2018-04-05 06:09] LABS: ABSOLUTE LYMPHOCYTES 1.4 thou/uL (0.8-5.3); ABSOLUTE MONOCYTES 0.1 thou/uL (0.0-1.2); ABSOLUTE NEUTROPHILS 12.5 thou/uL (1.6-8.1); ANISOCYTOSIS 1+; PLATELET ESTIMATE ADEQUATE; POIKILOCYTOSIS 1+; TARGET CELLS Occasional
[2018-04-05 08:05] VITALS: BP 143/107
[2018-04-05 18:54] VITALS: BP 124/65
--- NOTE | 2018-04-05 20:50 | NUR ---
PATIENT RESTING IN BED. PATIENT DENIES ANY PAIN. PATIENT HAS POOR APPETITE AND REFUSED MEALS. PATIENT ENCOURAGED TO DRINK BOOST WITH LITTLE INTAKE, PATIENT IS DRINKING WATER. PATIENT WAS UP TO CHAIR THIS AFTERNOON. PATIENT IS UP WAS MAX ASSIST OF 2 WITH GAIT BELT AND WALKER. PATIENT HAD NEW TUNNELED DIALYSIS LINE PLACED THIS AM WITHOUT INCIDENT. PATIENT HAS AL CATHETER IN PLACE, ORDERED TO REMOVE BUT PATIENT REFUSED AND WANTED TO TALK TO DOCTOR PRIOR TO REMOVAL. PATIENT DENIES ANY NEEDS AT THIS TIME. CALL LIGHT WITHIN REACH. WILL CONTINUE TO MONITOR.
[2018-04-05 23:43] VITALS: BP 134/74
[2018-04-06] VITALS (7 sets, daily range): BP systolic 128–157; BP diastolic 61–81
[2018-04-06 05:16] LABS: ALBUMIN 2.8 g/dL (3.4-5.0); CALCIUM 8.3 mg/dL (8.5-10.1); PHOSPHORUS* 7.3 mg/dL (2.5-4.9); POTASSIUM 5.1 mmol/L (3.5-5.1)
[2018-04-06 05:19] LABS: CREATININE 5.2 mg/dL (0.6-1.3)
--- NOTE | 2018-04-06 05:26 | NUR ---
ASSESSMENT COMPLETE. PT SLEPT MOST OF THE NIGHT. PT DENIES PAIN AND N/V. DRESSINGS TO WOUNDS CHANGED TONIGHT. IV CEFAZOLIN GIVEN ORDERED. NEW DIALYSIS CATH IN PLACE, SMALL AMOUNT OF RED BLOOD IN DRESSING. PT IS Q2 TURN FOR SKIN INTEGRITY. AL IN PLACE WITH VERY LITTLE OUTPUT, DARK RED. PT WANTED TO GET TO BS FOR BM, MAX ASSIST WITH WALKER AND GAIT BELT ATTEMPTED AND PT UNABLE TO STAND AND AMBULATE. BEDPAN USED. VITALS STABLE. SEE ASSESSMENT AND VITALS FOR OTHER DETAILS. CALL LIGHT WITHIN REACH, WILL CONTINUE PLAN OF CARE
--- NOTE | 2018-04-06 16:30 | NUR ---
AMANDA met with pt and pt dtr Fiordaliza whose number is [phone]. Pt and pt family want to consider inpt rehab option. AMANDA discussed the consult was entered today and that SW will update pt/family on dc planning and continue to follow. Pt dtr also hopes that when pt is ready to dc home from hospital or rehab, they would prefer dialysis chair time of MWF afternoons.
--- NOTE | 2018-04-06 17:18 | NUR ---
RECEIVED CONSULT FOR POSSIBLE REHAB ADMISSION. CONSULT HAS BEEN ACKNOWLEDGED BY PLASTIC SHEETING CUTTER AND DR. DESHPANDE. PATIENT ADMITTED WITH AMS, NONHEALING DM FOOT ULCER AND R LE CELLULITIS. PT WITH SEPSIS AND ENCEPHALOPATHY. OT AND ST EVALUATIONS ARE PENDING. PATIENT WAS MAX A X2 WITH PT TODAY FOR TRANSFER. ALSO ON HD. WILL FOLLOW ALONG WITH PATIENT TO SEE HOW HE PROGRESSES AND IF ABLE TO TOLERATE 3 HOURS OF THERAPIES PENDING EVALUATIONS AND CONTINUED THERAPIES. THANK YOU FOR THIS CONSULT.
--- NOTE | 2018-04-06 19:40 | NUR ---
PATIENT RESTING IN BED. PATIENT HAD DIALYSIS THIS AM. PATIENT RETURNED FROM DIALYSIS THIS AFTERNOON. PATIENT WORKED WITH PHYSICAL THERAPY. PATIENT IS UP MAX ASSIST OF 2 WITH GAIT BELT OR LIFT. PATIENT WAS UP TO CHAIR MOST OF AFTERNOON. PATIENT HAS POOR APPETITE, REFUSED ENSURE BUT WILL EAT ICE CREAM. REHAB CONSULT RECEIVED TODAY PER FAMILY REQUEST. PATIENT DENIES ANY NEEDS AT THIS TIME. CALL LIGHT WITHIN REACH. WILL CONTINUE TO MONITOR.
[2018-04-07 04:00] VITALS: BP 154/79
--- NOTE | 2018-04-07 05:43 | NUR ---
ASSESSMENT COMPLETE. PT SLEPT THROUGH THE NIGHT WITHOUT ANY CONCERNS. PT DENIES PAIN AND N/V. PT IS ON ROOM AIR WITH ADEQUATE SATS. PT TURNED Q2 FOR SKIN INTEGRITY. NO URINE OUTPUT DURING THE NIGHT. DRESSING TO BLE DRY AND INTACT. IV SALINE LOCKED IN RIGHT FOREARM, FLUSHES WITHOUT DIFFICULTY. PT IS MAX ASSIST WITH CARMINA. SEE ASSESSMENT AND VITALS FOR OTHER DETAILS. CALL LIGHT WITHIN REACH, WILL CONTINUE PLAN OF CARE
--- NOTE | 2018-04-07 16:28 | NUR ---
PATIENT WORKED WITH PT/OT THIS SHIFT. UP TO EGDE OF BED. IV REMOVED AND PO ABX STARTED. NO URINE OUTPUT THIS SHIFT. PATIENT TO HAVE DIALYSIS TOMORROW AM, FAMILY AWARE. SPOKE WITH WOUND CARE REGARDING FUTURE POSSIBLE HYPERBARIC TREATMENTS, DR. CAREY NOTIFIED TO SPEAK WITH DR. ENNIS REGARDING. WOUND DRESSING CHANGED TO RIGHT FOOT ORDERED. FAMILY AT BEDSIDE MOST OF THE DAY.
[2018-04-07 16:34] VITALS: BP 139/59
[2018-04-08] VITALS: BP 154/67
[2018-04-08 04:00] VITALS: BP 146/59
[2018-04-08 04:41] LABS: HEMATOCRIT 35.5 % (42.0-52.0); HEMOGLOBIN 11.4 gm/dL (14.0-18.0); MCH 28.7 pg (26.0-34.0); MCHC 32.3 g/dL (28.0-37.0); MCV 88.9 fL (80.0-100.0); MPV 8.4 fl. (7.2-11.1); NUCLEATED RBCS 0 /100WBC; PLATELET COUNT* 144 thou/uL (150-400); RBC 3.99 mil/uL (4.50-6.00); RDW-CV 17.2 % (10.5-14.5); WBC 22.9 thou/uL (4.0-11.0)
[2018-04-08 04:55] LABS: CALCIUM 8.4 mg/dL (8.5-10.1); CREATININE 5.6 mg/dL (0.6-1.3); POTASSIUM 4.4 mmol/L (3.5-5.1)
--- NOTE | 2018-04-08 05:52 | NUR ---
PATIENT SLEPT MOST OF THE NIGHT. PATIENT HAS NO COMPLAINTS OF PAIN. PATIENT IS TO HAVE DIALYSIS TODAY. WILL CONTINUE TO MONITOR.
[2018-04-08 06:21] LABS: ABSOLUTE LYMPHOCYTES 0.7 thou/uL (0.8-5.3); ABSOLUTE MONOCYTES 1.4 thou/uL (0.0-1.2); ABSOLUTE NEUTROPHILS 20.8 thou/uL (1.6-8.1); PLATELET ESTIMATE DECREASED
[2018-04-08 06:26] LABS: ANISOCYTOSIS 1+; POIKILOCYTOSIS 1+
[2018-04-08 11:10] VITALS: BP 122/54
[2018-04-08 16:00] VITALS: BP 142/63
--- NOTE | 2018-04-08 17:29 | NUR ---
PATIENT RESTING UP IN RECLINER. PATIENT DENIES ANY PAIN. PATIENT HAS WORKED WITH PHYSICAL THERAPY THIS AFTERNOON. PATIENT HAD DIALYSIS THIS AM WITHOUT INCIDENT. PATIENT HAS POOR APPETITE, SUPPLEMENTS GIVEN. PATIENT HAS SLEPT MOST OF DAY. FAMILY AT BEDSIDE. CALL LIGHT WITHIN REACH. WILL CONTINUE TO MONITOR.
[2018-04-09] VITALS: BP 151/72
[2018-04-09 04:00] VITALS: BP 154/68
[2018-04-09 04:50] LABS: ABSOLUTE EOSINOPHILS 0.1 thou/uL (0.0-0.7); ABSOLUTE LYMPHOCYTES 0.7 thou/uL (0.8-5.3); ABSOLUTE MONOCYTES 1.3 thou/uL (0.0-1.2); ABSOLUTE NEUTROPHILS 14.4 thou/uL (1.6-8.1); BASOPHILS 0.1 %; EOSINOPHILS 0.9 %; HEMATOCRIT 33.1 % (42.0-52.0); LYMPHOCYTES 4.3 %; MCH 29.2 pg (26.0-34.0); MCHC 33.2 g/dL (28.0-37.0); MPV 8.1 fl. (7.2-11.1); NUCLEATED RBCS 0 /100WBC; PLATELET COUNT* 158 thou/uL (150-400); POLYS 86.7 %; RBC 3.76 mil/uL (4.50-6.00); RDW-CV 17.6 % (10.5-14.5); WBC 16.6 thou/uL (4.0-11.0)
[2018-04-09 06:11] LABS: CALCIUM 8.2 mg/dL (8.5-10.1); CREATININE 4.4 mg/dL (0.6-1.3); POTASSIUM 3.9 mmol/L (3.5-5.1)
--- NOTE | 2018-04-09 07:16 | NUR ---
PATIENT SLEPT MOST OF THE NIGHT. PATIENT HAD NO COMPLAINTS OF PAIN. PATIENT WAS TURNED ABOUT EVERY TWO HOURS. DRESSING REMAIN TO RIGHT FOOT WITH PODUS BOOTS IN PLACE BILATERALLY. WILL CONTINUE TO MONITOR.
[2018-04-09 07:50] VITALS: BP 162/76
[2018-04-09 16:39] VITALS: BP 131/61
[2018-04-09 19:45] VITALS: BP 122/65
--- NOTE | 2018-04-09 19:47 | NUR ---
PATIENT RESTING IN BED. PATIENT DENIES ANY PAIN. PATIENT WAS UP TO COMMODE X 1 THIS AM. PATIENT IS UP WITH MAX ASSIST WITH 2 AND GAIT BELT. PATIENT REFUSED TO SIT UP IN RECLINER. PATIENT REFUSES TURNS IN BED. WOUND CARE COMPLETED TO RIGHT FOOT AND LEG AND BUTTOCK. PATIENT HAS POOR APPETITE. PATIENT DENIES ANY NEEDS AT THIS TIME. CALL LIGHT WITHIN REACH. WILL CONTINUE TO MONITOR.
[2018-04-10 00:28] VITALS: BP 132/66
[2018-04-10 04:00] VITALS: BP 128/65
[2018-04-10 04:30] LABS: ABSOLUTE EOSINOPHILS 0.3 thou/uL (0.0-0.7); ABSOLUTE LYMPHOCYTES 0.9 thou/uL (0.8-5.3); ABSOLUTE MONOCYTES 1.1 thou/uL (0.0-1.2); ABSOLUTE NEUTROPHILS 10.5 thou/uL (1.6-8.1); BASOPHILS 0.3 %; EOSINOPHILS 2.3 %; HEMATOCRIT 33.3 % (42.0-52.0); HEMOGLOBIN 11.1 gm/dL (14.0-18.0); LYMPHOCYTES 6.7 %; MCHC 33.2 g/dL (28.0-37.0); MCV 87.5 fL (80.0-100.0); MONOCYTES 8.6 %; MPV 7.7 fl. (7.2-11.1); NUCLEATED RBCS 0 /100WBC; PLATELET COUNT* 197 thou/uL (150-400); POLYS 82.1 %; RBC 3.81 mil/uL (4.50-6.00); RDW-CV 17.5 % (10.5-14.5); WBC 12.7 thou/uL (4.0-11.0)
[2018-04-10 05:10] LABS: ALBUMIN 2.1 g/dL (3.4-5.0); CALCIUM 8.3 mg/dL (8.5-10.1); POTASSIUM 4.4 mmol/L (3.5-5.1); TOTAL BILIRUBIN 0.8 mg/dL (<0.1-1.0); TOTAL PROTEIN 5.8 g/dL (6.4-8.2)
[2018-04-10 05:12] LABS: CREATININE 5.8 mg/dL (0.6-1.3)
--- NOTE | 2018-04-10 06:07 | NUR ---
PT SLEPT FAIRLY WELL OVERNIGHT. REFUSING TURNS, EDUCATION GIVEN. PT AO, FORGETFUL. CAN BE FUSSY WHEN CARES GIVEN. NO IV. HS ACCUCHECK 190, INSULIN GIVEN PER SS. TELE V PACED. VSS. AM LABS DRAWN. DRSG CDI TO RLE, PODUS BOOTS ON BLE. USING BED RAMIREZ AT START OF SHIFT, SMALL BM AND SCANT AMOUNT DARK BROWN URINE. DENIES PAIN. R CHEST TESSIO INTACT. TAKING PILLS WHOLE WITH WATER. ABLE TO USE CALL LITE AND MAKE NEEDS KNOWN. REFUSING HS SNACK.
[2018-04-10 08:00] VITALS: BP 146/69
--- NOTE | 2018-04-10 14:21 | NUR ---
CM SPOKE TO THE PATIENT AND FAMILY TO DISCUSS DISCHARGE PLANNING NEEDS AND SKILLED AT D/C. PATIENT'S SPOUSE INFORMS THAT SHE WOULD LIKE A REFERRAL SENT TO [facility]. CM SPOKE TO EMETERIO AT [facility] TO INFORM OF THE REFERRAL FOR SKILLED AND FAXED PATIENTS CLINICAL INFO. CM WILL REMAIN AVAILABLE TO ASSIST AND FOLLOW NEEDED.
[2018-04-10] MEDS ORDERED: HUMALOG100 UNIT/1 SUBQ (15:18)
[2018-04-10] MEDS ORDERED: MIRALAX17 GM PO (15:19)
[2018-04-10] MEDS ORDERED: NEPHROCAPS SOFT1 CAP PO (15:19)
[2018-04-10] MEDS ORDERED: RENVELA800 MG PO (15:20)
[2018-04-10] MEDS ORDERED: FINASTERIDE5 MG PO (15:20)
[2018-04-10 16:00] VITALS: BP 118/60
--- NOTE | 2018-04-10 17:19 | NUR ---
CONTINUING TO FOLLOW PATIENT ALONG WITH DR. DESHPANDE. PATIENT FREQUENTLY REFUSES THERAPIES OR REQUIRES MUCH ENCOURAGEMENT TO PARTICIAPATE. IT IS UNLIKELY THAT PATIENT COULD TOLERATE 3 HOURS OF THERAPY OR WOULD PARTICIPATE. AT THIS TIME PATIENT WOULD BENEFIT FROM SKILLED FOR CONTINUED THERAPIES. SPOKE WITH EMELY WOODY AND NOTIFIED HER OF RECOMMENDATION.
--- NOTE | 2018-04-10 17:20 | NUR ---
PATIENT DISCHARGED TO [facility]. REPORT CALLED. COPY OF CHART AND DISCHARGE ORDERS SENT WITH TRANSPORTER. PATIENT ASSISTED TO WHEELCHAIR WITH MAX ASSIST OF 2. BELONGINGS PACKED BY FAMILY. NO IV. DIALYSIS CATHIN PLACE. PATIENT DENIES ANY FURTHER NEED. PATIENT TAKEN BY WHEELCHAIR VAN AT THIS TIME.
--- NOTE | 2018-06-02 17:11 | PATH ---
[address] [address] PATHOLOGY RPT PROCEDURE Name: KEVIN EL Room: [address] IN .R.#: [id number] Admission: 03/20/18 Date of : 34 Discharge: 04/10/18 Report #: [id number] Path Case #: [id number] L[facility] Accession Number: [id number] . 01 Material submitted: . LEFT RENAL BIOPSY . 01 Clinical history: . Chronic renal failure . 02 Diagnosis: Special studies report received from [facility], [address] [place] [address], [place] [address], on case [id number], labeled with their number [id number], dated 04/01/2018. . Specimen submitted: By Jose Beard MD For Kidney, transplant biopsy . 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 See Comment. . Global Glomerulosclerosis (1). . Interstitial Fibrosis and Tubular Atrophy, Mild. . Comment: The small cortical sample contains four non-obsolescent glomeruli for light microscopic evaluation, all of which show cellular crescent formation. The biopsy findings are concerning for an infection-associated glomerulonephritis, which includes deep seated occult infections (e.g. infective endocarditis, retroperitoneal abscess, osteomyelitis). If an infection is excluded, the differential diagnosis would also include ANCA-relative disease (up to 20% of ANCA-related renal disease may have negative ANCA testing) and autoimmune disease. Clinical correlation is required. . Clinical History: The patient is an 87-year-old man with renal failure. He has sepsis and endocehalopathy. He has an artificial heart valve. . Gross Description: Received from [facility] ([place], [place]) are two specimen bottles, one bottle contains formalin and the other contains Cornelio's fixative. The bottles are labeled with the patient's name (Kevin El). . Received in formalin are four pieces of denton tissue measuring 0.9 x 0.1 x 0.1 cm (fatty end), 0.9 x 0.1 0.1 cm (fatty end, took one end), 1.6 x 0.1 x 0.1 cm (took one end), and 0.5 x 0.1 x 0.1 cm. [place] [address] PATHOLOGY RPT PROCEDURE Name: NIKKO,KEVIN F Room: [address] IN M.R.#: [id number] Admission: 03/20/18 Date of : 32 Discharge: 04/10/18 Report #: [id number] Path Case #: [id number] for electron microscopy and the remainder of the tissue is submitted in its entirety for light microscopy. . Received in Cornelio's fixative are three pieces of denton tissue measuring 0.3 x 0.1 x 0.1 cm and two at 0.4 x 0.1 x 0.1 cm. The specimen is submitted in its entirety for immunofluorescence microscopy. . Microscopic Description: LIGHT MICROSCOPY: . Four cores of renal tissue are present for evaluation (35% cortex and 65% medulla). Up to five glomeruli are identified, one of which is globally sclerotic. The remaining four glomeruli show cellular crescent formation with segmental foci of necrosis. Kaur staining confirms the presence of focal capillary loop rupture. Approximately two glomeruli show global mesangial and endocapillary hypercellularity, including prominent endocapillary neutrophils. Tubules show mild atrophy. Focal red blood cell casts are noted. No atypical protein casts are identified. The interstitium contains no significant inflammation. Trichrome staining shows mild intestinal fibrosis (approximately 10-15%). Vessels show no arteriosclerosis. Toluidine blue-stained sections contain no glomeruli (deeper levels examined). . Standard of care requirements for proper analysis of renal biopsies mandates serial sections, and PAS, Kaur silver, trichrome and SMMT stains at multiple levels. PAS stains are used to evaluate various aspects of the glomerular, tubular, and vascular basement membranes. Kaur silver stains are used to evaluate thickening, reduplication, "spiking" or "bubbling" of the glomerular basement membrane. Toluidine blue stained sections highlight glomerular basement membranes and demonstrates unusual types of deposits. It also reveals details of tubular epithelial cells and aids in the analysis of vascular lesions. Abdiel trichrome stains are used to evaluate interstitial fibrosis and basement membrane deposits. The SMMT stain helps evaluate basement membrane changes, immune deposits and tubulointerstitial scarring. Controls are routinely run on all special stains and are verified for acceptability. A review of the technical quality of routine slides is made before results are reported. . IMMUNOFLUORESCENCE: Three cores of renal tissue are present for evaluation (100% medulla). No glomeruli are identified. The sections are stained for IgG, IgA, IgM, C3, C1q, albumin, fibrinogen, kappa and lambda light chains. Staining of the tubulointerstitium by kappa and lambda appears equal. All other stains show no significant extraglomerular staining. Given the absence of glomeruli, the paraffin embedded tissue is processed for immunofluorescence and is stained for IgA, IgG, IgM, C3, kappa, and lambda. There is granular mesangial and capillary wall staining for IgA (1+), IgG (traces, and lambda (trace). All other stains are negative in glomeruli. Again, staining of the tubulointerstitium [place] [address] PATHOLOGY RPT PROCEDURE Name: KEVIN EL Room: [address] [place] .R.#: [id number] Admission: 03/20/18 Date of : 32 Discharge: 04/10/18 Report #: [id number] Path Case #: [id number] appears equal. . Positive and negative controls are run on all immunofluorescent stains and are verified for acceptability before results are reported. Internal antigens serve as positive controls. . ELECTRON MICROSCOPY: Two blocks are prepared. Ultrastructural examination is not performed given the lack of glomeruli. . Special procedures including immunofluorescence and electron microscopy correlate with the light microscopy findings. . Note: Some of the tests reported here may have been developed and performance characteristics determined by [facility]. They have not been cleared or approved by the U.S. Food and Drug Administration (FDA). The FDA does not require this test to go through premarket FDA review. This test is used for clinical purposes. It should not be regarded as investigational or for research. [facility] is certified under the Clinical Laboratory Improvement Amendments of 1988 (CLIA) as qualified to perform high complexity clinical laboratory testing. . Physician/Physician's office called on 04/01/2018 at 1:25 PM Central. . *I have reviewed the clinical history, the pertinent gross findings, all microscopic materials, discussed the case with the clinician when appropriate, and have rendered the final diagnosis. . Final Diagnosis performed by Erika Rebollar M.D. Electronically signed 04/03/2018 4:43:23 PM . A complete copy of the report is on file. . Professional and technical services performed by [facility] at [address] [place] [address], [address], [facility]. . (AMJ 04/04/2018) AZJ/04/06/2018 . 02 Electronically signed: . Ishan Shaffer MD, Pathologist NPI- [id number] . 01 Gross description: . The specimen is received in formalin, labeled "Kevin El, renal biopsy left". Received are multiple needle cores of pale [place] [address] PATHOLOGY RPT PROCEDURE Name: KEVIN EL Room: [address] [place] M.R.#: [id number] Admission: 03/20/18 Date of : 32 Discharge: 04/10/18 Report #: [id number] Path Case #: [id number] ranging in length from 0.5 to 1.3 cm, with each measuring 0.1 cm in diameter. The specimen is forwarded to an outside laboratory for further processing. . Also received is a container of Cornelio's fixative, labeled "Kevin lE, renal biopsy left". Received are multiple needle cores of pale denton soft tissue ranging in length from 0.3 to 0.6 cm, with each measuring 0.1 cm in diameter. The specimen is forwarded to an outside laboratory for further processing. (CAA; 03/31/2018) QAC/QAC . 02 CPT . [id number] Specimen Comment: A courtesy copy of this report has been sent to Specimen Comment: [phone], . Performed at: [address] [facility] [address], [place], [place] [id number] MD Alonso Mcgovern MD Phone: [phone] Performed at: 02 [facility] Evin Velasquez, [place], [place] [id number] MD Ishan Shaffer MD Phone: [phone]
== END 2018-04-10 17:20 | DRG 871 ==
LOC: M.ERS 12:24 → M.3W 13:08 → M.TBA-ER 13:08 → M.3W 14:48
PROVIDERS: Emergency Medicine; Internal Medicine Nephrology; ADMIT Internal Medicine
PROC: 30233K1 Transfusion of Nonautologous Frozen Plasma into Peripheral Vein, Percutaneous Approach (ICD-10-PCS; principal; 2018-03-26)
PROC: 5A1D70Z Performance of Urinary Filtration, Intermittent, Less than 6 Hours Per Day (ICD-10-PCS; 2018-03-27)
PROC: 5A1D70Z Performance of Urinary Filtration, Intermittent, Less than 6 Hours Per Day (ICD-10-PCS; 2018-03-28)
PROC: B548ZZA Ultrasonography of Superior Vena Cava, Guidance (ICD-10-PCS; 2018-03-28)
PROC: B5181ZA Fluoroscopy of Superior Vena Cava using Low Osmolar Contrast, Guidance (ICD-10-PCS; 2018-03-28)
PROC: 02HV33Z Insertion of Infusion Device into Superior Vena Cava, Percutaneous Approach (ICD-10-PCS; 2018-03-28)
PROC: 5A1D70Z Performance of Urinary Filtration, Intermittent, Less than 6 Hours Per Day (ICD-10-PCS; 2018-03-30)
PROC: 0TB13ZX Excision of Left Kidney, Percutaneous Approach, Diagnostic (ICD-10-PCS; 2018-03-30)
PROC: BT42ZZZ Ultrasonography of Left Kidney (ICD-10-PCS; 2018-03-30)
PROC: 5A1D70Z Performance of Urinary Filtration, Intermittent, Less than 6 Hours Per Day (ICD-10-PCS; 2018-04-01)
PROC: 5A1D70Z Performance of Urinary Filtration, Intermittent, Less than 6 Hours Per Day (ICD-10-PCS; 2018-04-04)
PROC: 02HV33Z Insertion of Infusion Device into Superior Vena Cava, Percutaneous Approach (ICD-10-PCS; 2018-04-05)
PROC: B548ZZA Ultrasonography of Superior Vena Cava, Guidance (ICD-10-PCS; 2018-04-05)
PROC: 0JH63XZ Insertion of Tunneled Vascular Access Device into Chest Subcutaneous Tissue and Fascia, Percutaneous Approach (ICD-10-PCS; 2018-04-05)
PROC: B5181ZA Fluoroscopy of Superior Vena Cava using Low Osmolar Contrast, Guidance (ICD-10-PCS; 2018-04-05)
PROC: 5A1D70Z Performance of Urinary Filtration, Intermittent, Less than 6 Hours Per Day (ICD-10-PCS; 2018-04-06)
PROC: 5A1D70Z Performance of Urinary Filtration, Intermittent, Less than 6 Hours Per Day (ICD-10-PCS; 2018-04-08)
DX: A41.01 Sepsis due to Methicillin susceptible Staphylococcus aureus (principal); G93.40 Encephalopathy, unspecified; E43 Unspecified severe protein-calorie malnutrition; L03.115 Cellulitis of right lower limb; N17.9 Acute kidney failure, unspecified; D68.9 Coagulation defect, unspecified; E11.52 Type 2 diabetes mellitus with diabetic peripheral angiopathy with gangrene; I96 Gangrene, not elsewhere classified; E87.1 Hypo-osmolality and hyponatremia; M86.8X7 Other osteomyelitis, ankle and foot; I42.9 Cardiomyopathy, unspecified; E11.65 Type 2 diabetes mellitus with hyperglycemia; F03.90 Unspecified dementia, unspecified severity, without behavioral disturbance, psychotic disturbance, mood disturbance, and anxiety; I50.9 Heart failure, unspecified; N18.3 Chronic kidney disease, stage 3 (moderate); I25.2 Old myocardial infarction; E78.5 Hyperlipidemia, unspecified; R31.0 Gross hematuria; N05.8 Unspecified nephritic syndrome with other morphologic changes; E11.621 Type 2 diabetes mellitus with foot ulcer; L97.519 Non-pressure chronic ulcer of other part of right foot with unspecified severity; E11.22 Type 2 diabetes mellitus with diabetic chronic kidney disease; I48.2 Chronic atrial fibrillation; I49.5 Sick sinus syndrome; D64.9 Anemia, unspecified; I25.10 Atherosclerotic heart disease of native coronary artery without angina pectoris; Y84.6 Urinary catheterization as the cause of abnormal reaction of the patient, or of later complication, without mention of misadventure at the time of the procedure; Y73.2 Prosthetic and other implants, materials and accessory gastroenterology and urology devices associated with adverse incidents; Z79.01 Long term (current) use of anticoagulants; Z95.2 Presence of prosthetic heart valve; Z95.0 Presence of cardiac pacemaker; Z79.4 Long term (current) use of insulin; Z88.0 Allergy status to penicillin; Z88.8 Allergy status to other drugs, medicaments and biological substances; Z91.040 Latex allergy status; Y92.89 Other specified places as the place of occurrence of the external cause; Z79.2 Long term (current) use of antibiotics; Z79.82 Long term (current) use of aspirin; Z79.899 Other long term (current) drug therapy; Z89.422 Acquired absence of other left toe(s); Z87.891 Personal history of nicotine dependence; Z89.411 Acquired absence of right great toe; Z68.21 Body mass index [BMI] 21.0-21.9, adult

== ENCOUNTER → 2018-03-20 | Outpatient (CLI) | payer MEDICARE | LOC: M.WC 12:00 | DX: L03.115 Cellulitis of right lower limb (principal); E11.621 Type 2 diabetes mellitus with foot ulcer; I73.9 Peripheral vascular disease, unspecified; I48.91 Unspecified atrial fibrillation; I50.9 Heart failure, unspecified; E78.5 Hyperlipidemia, unspecified; Z88.0 Allergy status to penicillin; Z91.040 Latex allergy status; Z88.8 Allergy status to other drugs, medicaments and biological substances ==

== ENCOUNTER → 2018-04-12 | Outpatient (CLI) | payer MEDICARE ==
[~2018-04-12] MED LIST changes: +COZAAR 25 MG TA25 M2 PO; +EPOGEN10000 UNIT HEMODIALYS; +EPOGEN10000 UNIT IV PUSH; +FLOMAX0.4 MG PO; +HUMALOG100 UNIT/1 SUBQ; +HYDRALAZINE 10M10 MG IV PUSH; +MAPAP325 MG PO; +MIRALAX17 GM PO; +NEPHROCAPS SOFT1 CAP PO; +PROTONIX40 M1 PO; +REMERON15 MG PO; +RENVELA800 MG PO; +THERAGRAN-M PR1 EAC1 PO; +TYLENOL325 MG PO; +VANCOMYCIN500 MG/VIA IV
== END ==
LOC: M.WC 03:22
DX: E11.621 Type 2 diabetes mellitus with foot ulcer (principal); I70.235 Atherosclerosis of native arteries of right leg with ulceration of other part of foot; L97.511 Non-pressure chronic ulcer of other part of right foot limited to breakdown of skin; L89.610 Pressure ulcer of right heel, unstageable; L97.421 Non-pressure chronic ulcer of left heel and midfoot limited to breakdown of skin; E11.42 Type 2 diabetes mellitus with diabetic polyneuropathy; I11.0 Hypertensive heart disease with heart failure; I50.9 Heart failure, unspecified; I25.10 Atherosclerotic heart disease of native coronary artery without angina pectoris; E78.5 Hyperlipidemia, unspecified; Z89.422 Acquired absence of other left toe(s); Z89.421 Acquired absence of other right toe(s); Z89.411 Acquired absence of right great toe

== ENCOUNTER 2018-04-19 01:37 | Inpatient (IN) | payer MEDICARE ==
[~2018-04-19] VITALS: Ht 182.9 cm; Wt 59.0 kg
[~2018-04-19 01:37] MED LIST changes: -COZAAR 25 MG TA25 M2 PO; -EPOGEN10000 UNIT HEMODIALYS; -EPOGEN10000 UNIT IV PUSH; -FLOMAX0.4 MG PO; -HYDRALAZINE 10M10 MG IV PUSH; -MAPAP325 MG PO; -PROTONIX40 M1 PO; -REMERON15 MG PO; -THERAGRAN-M PR1 EAC1 PO; -TYLENOL325 MG PO; -VANCOMYCIN500 MG/VIA IV
[2018-04-19 14:50] LABS: HEMATOCRIT 31.7 % (42.0-52.0); HEMOGLOBIN 10.3 gm/dL (14.0-18.0); MCH 28.8 pg (26.0-34.0); MCHC 32.6 g/dL (28.0-37.0); MCV 88.1 fL (80.0-100.0); MPV 7.3 fl. (7.2-11.1); NUCLEATED RBCS 0 /100WBC; PLATELET COUNT* 164 thou/uL (150-400); RBC 3.59 mil/uL (4.50-6.00); RDW-CV 17.8 % (10.5-14.5); WBC 8.9 thou/uL (4.0-11.0)
[2018-04-19 14:52] LABS: INR 1.7; PROTIME 16.9 Seconds (9.20-11.50)
[2018-04-19 15:11] LABS: ALBUMIN 2.6 g/dL (3.4-5.0); CALCIUM 8.3 mg/dL (8.5-10.1); CREATININE 3.7 mg/dL (0.6-1.3); POTASSIUM 4.7 mmol/L (3.5-5.1); TOTAL BILIRUBIN 0.8 mg/dL (<0.1-1.0); TOTAL PROTEIN 6.4 g/dL (6.4-8.2)
[2018-04-19 16:11] LABS: ABSOLUTE EOSINOPHILS 0.4 thou/uL (0.0-0.7); ABSOLUTE LYMPHOCYTES 0.8 thou/uL (0.8-5.3); ABSOLUTE MONOCYTES 0.5 thou/uL (0.0-1.2); ABSOLUTE NEUTROPHILS 7.2 thou/uL (1.6-8.1)
[2018-04-19 16:12] LABS: ANISOCYTOSIS 1+; HYPOCHROMASIA Occasional
[2018-04-19 16:13] LABS: PLATELET ESTIMATE ADEQUATE
[2018-04-19 16:36] VITALS: BP 135/77
--- NOTE | 2018-04-19 18:57 | NUR ---
PATIENT ARRIVED FROM WOUND CARE CENTER THIS AFTERNOON. PATIENT SETTLED TO ROOM. PATIENT IS UP MAX ASSIST 2-3 FOR TRANSFERS, NON-AMBULATORY. ARTERIAL DOPPLER OF RIGHT LEG THIS AFTERNOON. WOUND CARE AND PICTURES COMPLETED. PATIENT DENIES ANY PAIN. PATIENT HAS POOR APPETITE, ENSURE SUPPLEMENT GIVEN. IV STARTED TO RIGHT FOREARM WITHOUT INCIDENT. PATIENT DENIES ANY NEEDS AT THIS TIME. CALL LIGHT WITHIN REACH. BED ALARM ON. WILL CONTINUE TO MONITOR.
[2018-04-20 00:47] VITALS: BP 126/61
[2018-04-20 03:54] LABS: ABSOLUTE BASOPHILS 0.1 thou/uL (0.0-0.2); ABSOLUTE EOSINOPHILS 0.2 thou/uL (0.0-0.7); ABSOLUTE MONOCYTES 0.9 thou/uL (0.0-1.2); ABSOLUTE NEUTROPHILS 6.1 thou/uL (1.6-8.1); BASOPHILS 0.9 %; EOSINOPHILS 2.3 %; HEMATOCRIT 27.9 % (42.0-52.0); HEMOGLOBIN 9.3 gm/dL (14.0-18.0); LYMPHOCYTES 12.1 %; MCH 29.4 pg (26.0-34.0); MCHC 33.4 g/dL (28.0-37.0); MCV 88.1 fL (80.0-100.0); MONOCYTES 10.6 %; MPV 7.1 fl. (7.2-11.1); NUCLEATED RBCS 0 /100WBC; PLATELET COUNT* 146 thou/uL (150-400); POLYS 74.1 %; RBC 3.17 mil/uL (4.50-6.00); RDW-CV 17.5 % (10.5-14.5); WBC 8.2 thou/uL (4.0-11.0)
[2018-04-20 03:56] LABS: CALCIUM 8.1 mg/dL (8.5-10.1); CREATININE 4.1 mg/dL (0.6-1.3); POTASSIUM 5.2 mmol/L (3.5-5.1)
--- NOTE | 2018-04-20 06:43 | NUR ---
PT SLEPT ON AND OFF OVERNIGHT. VOICING FRUSTRATION STATING "I DONT KNOW WHY IM STAYING HERE AGAIN. THIS IS THE D____ THING DOUG EVER SEEN. I JUST CAME FOR DIALYSIS." EDUCATION GIVEN ABOUT FOOT WOUND AND NEED FOR ANTIBIOTICS BUT PT SKEPTICAL. DIALYSIS TODAY. PT REFUSING TO CHANGE OUT OF HOME CLOTHES THIS SHIFT. HS ACCUCHECK 81, SNACK GIVEN. AM LABS DRAWN. R CHEST TESSIO INPLACE. RFA SL, ABX GIVEN ORDERED. TURNED Q2 HOURS AND PRN PT WOULD ALLOW. SPECIAL BOOTS TO BLE FOR SKIN INTEGRITY. ABLE TO USE CALL LITE AND MAKE NEEDS KNOWN.
[2018-04-20 08:15] VITALS: BP 121/70
--- NOTE | 2018-04-20 09:37 | NUR ---
CM SPOKE TO THE PATIENT, SPOUSE, AND SON TO DISCUSS HOME SITUATION, DISCHARGE PLANNING, AND TO INFORM OF THE ROLE OF CM. PATIENT RESTING WITH EYES CLOSED DURRING ASSESSMENT. PATIENT'S SPOUSE AND SON ANSWERING ALL QUESTIONS. PATIENT WAS ADMITTED FROM [facility], AND TENITIVELY PLAN TO RETURN TO [facility] A D/C TO CONTINUE THERAPIES. CM SPOKE TO EMETERIO WITH [facility] ADMISSIONS AND SHE CONFIRMS THAT THE PATIENT IS FROM THE SKILLED UNIT AND ARE ABLE TO ACCEP THE PATIENT AT D/C. CM WILL REMAIN AVAILABLE TO ASSIST AND FOLLOW NEEDED.
--- NOTE | 2018-04-20 17:42 | NUR ---
PATIENT RESTING IN BED. PATIENT IS UP MAX ASSIST OF 2 FOR TRANSFERS. BENEDICTO FROST UP TO CHAIR THIS AM. BENEDICTO DOVERD DIALYSIS THIS AFTERNOON WITHOUT INCIDENT. BENEDICTO MUSA POOR APPETITE, ENSURE AND ICE CREAM GIVEN. PATIENT AND FAMILY DISCUSSED AMPUTATION WITH VASCULAR. PATIENT DENIES ANY NEEDS AT THIS. CALL LIGHT WITHIN REACH. WILL CONTINUE TO MONITOR.
[2018-04-20 18:20] VITALS: BP 133/65
[2018-04-21] VITALS: BP 140/70
--- NOTE | 2018-04-21 00:44 | NUR ---
ASSUMED PATIENT CARE AT 2330. PATIENT SLEEPING AT THIS TIME. BED ALARM IN PLACE. CALL LIGHT WITHIN REACH. NURSING WILL CONTINUE TO MONITOR.
[2018-04-21 04:18] LABS: ABSOLUTE BASOPHILS 0.1 thou/uL (0.0-0.2); ABSOLUTE EOSINOPHILS 0.2 thou/uL (0.0-0.7); ABSOLUTE LYMPHOCYTES 0.9 thou/uL (0.8-5.3); ABSOLUTE MONOCYTES 0.9 thou/uL (0.0-1.2); ABSOLUTE NEUTROPHILS 5.4 thou/uL (1.6-8.1); BASOPHILS 0.9 %; EOSINOPHILS 2.6 %; HEMOGLOBIN 9.6 gm/dL (14.0-18.0); LYMPHOCYTES 11.9 %; MCV 87.8 fL (80.0-100.0); MONOCYTES 11.5 %; MPV 7.5 fl. (7.2-11.1); NUCLEATED RBCS 0 /100WBC; PLATELET COUNT* 166 thou/uL (150-400); POLYS 73.1 %; RDW-CV 18.1 % (10.5-14.5); WBC 7.4 thou/uL (4.0-11.0)
[2018-04-21 04:35] LABS: INR 2.4; PROTIME 23.4 Seconds (9.20-11.50)
[2018-04-21 04:39] LABS: ALBUMIN 2.3 g/dL (3.4-5.0); POTASSIUM 5.1 mmol/L (3.5-5.1); TOTAL BILIRUBIN 0.9 mg/dL (<0.1-1.0); TOTAL PROTEIN 5.6 g/dL (6.4-8.2)
--- NOTE | 2018-04-21 05:20 | NUR ---
PATIENT REMAINS ALERT AND ORIENTED WITH PERIODS OF FORGETFULNESS. VITAL SIGNS STABLE ON ROOM AIR. IV PATENT IN THE RIGHT FOREARM SALINE LOCKED. PATIENT CONTINUES TO DECLINE ASSISTANCE TO REPOSITION AND TO OFFLOAD HEALS. DENIES PAIN OR NAUSEA. DRESSINGS CLEAN, DRY AND INTACT. RESTING COMFORABLY THROUGHOUT THE NIGHT. HOURLY ROUNDING COMPLETE. FALL PRECAUTIONS IN PLACE. CALL LIGHT WITHIN REACH. NURSING WILL CONTINUE TO MONITOR.
[2018-04-21 07:35] VITALS: BP 145/67
--- NOTE | 2018-04-21 10:47 | CON ---
[facility] [address] [place] [address] CONSULTATION Name: KEVIN EL Room: [address] [place] [facility]#: [id number] Admission: 04/19/18 Attend Phys: Jaziel Koehler MD Discharge: Date of : 34 Report #: [id number] THIS REPORT FOR: //name// CC: Jaziel Koehler [facility] Eben Keys DATE OF SERVICE: 04/20/2018 REQUESTING PHYSICIAN: Jaziel Koehler M.D. REASON FOR CONSULTATION: Assist in providing dialysis. HISTORY OF PRESENT ILLNESS: The patient is an 87-year-old man with medical history significant for end-stage renal disease, severe peripheral artery disease, admitted for the treatment of his right ischemic foot. He is on chronic dialysis on Tuesday, , and Tuesday schedule. He is on dialysis now during my examination. PAST MEDICAL HISTORY: 1. Diabetes mellitus type 2. 2. 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 3. Coronary artery disease. 4. Status post aortic valve replacement. 5. Chronic atrial fibrillation. SOCIAL HISTORY: He used to smoke. FAMILY HISTORY: Noncontributory. PHYSICAL EXAMINATION: GENERAL: He is examined on dialysis. VITAL SIGNS: Reviewed. NECK: Supple. LUNGS: Clear. CARDIOVASCULAR: Irregular rate. ABDOMEN: Soft. EXTREMITIES: His right foot is dressed. LABORATORY DATA: Significant for potassium of 5.2 and creatinine of 4.1. His hemoglobin is 9.3 and white count is 8.2 thousand. ASSESSMENT AND PLAN: An 87-year-old gentleman admitted for chronic right foot [facility] [address] [place] [address] CONSULTATION Name: KEVIN EL Room: [address] [place] [facility]#: [id number] Admission: 04/19/18 Attend Phys: Jaziel Koehler MD Discharge: Date of : 32 Report #: [id number] infection. Infectious Disease doctor is on the case. Antibiotics ordered. From my standpoint, I will provide chronic dialysis while he is in the hospital. <ELECTRONICALLY SIGNED> By: Luis Alberto Teresa MD 04/21/18 1047 [id number] Teresa MD /[facility]
[2018-04-21 15:54] VITALS: BP 132/55
--- NOTE | 2018-04-21 17:37 | NUR ---
PATIENT RESTING IN BED. PATIENT DENIES ANY PAIN. PATIENT IS UP MAX ASSIST OF 2. PATIENT SEEN BY VASCULAR THIS EVENING AND DRESSINGS CHANGED. PATIENT HAS LLE WOUND THAT VASCULAR NURSE WAS MADE AWARE OF. PATIENT HAS POOR APPETITE, SUPPLEMENTS GIVEN. PATIENT DENIES ANY NEEDS AT THIS TIME. CALL LIGHT WITHIN REACH. WILL CONTINUE TO MONITOR.
[2018-04-21 20:00] VITALS: BP 130/73
[2018-04-22 04:38] LABS: HEMATOCRIT 30.7 % (42.0-52.0); HEMOGLOBIN 10.2 gm/dL (14.0-18.0); MCH 29.4 pg (26.0-34.0); MCHC 33.2 g/dL (28.0-37.0); MCV 88.4 fL (80.0-100.0); MPV 7.7 fl. (7.2-11.1); RBC 3.47 mil/uL (4.50-6.00); RDW-CV 18.1 % (10.5-14.5); WBC 7.5 thou/uL (4.0-11.0)
[2018-04-22 04:55] LABS: INR 3.4; PROTIME 32.2 Seconds (9.20-11.50)
[2018-04-22 05:05] LABS: ALBUMIN 2.4 g/dL (3.4-5.0); CALCIUM 8.2 mg/dL (8.5-10.1); POTASSIUM 4.4 mmol/L (3.5-5.1); TOTAL BILIRUBIN 0.9 mg/dL (<0.1-1.0); TOTAL PROTEIN 5.9 g/dL (6.4-8.2)
[2018-04-22 05:09] LABS: CREATININE 4.1 mg/dL (0.6-1.3)
--- NOTE | 2018-04-22 06:52 | NUR ---
ASSUMED PATIENT CARE AT 1900. PATIENT ALERT AND ORIENTED TIMES FOUR. VERY SLOW TO RESPOND TO QUESTIONS. IV PATENT TO FLUSHES. DRESSING TO BILATERAL LOWER EXT C/D/I, PROTECTIVE BOOTS IN PLACE. PATIENT RECEIVED PARTIAL BED BATH THIS SHIFT. UNSURE IF PATIENT STILL PRODUCES URINE. PATIENT IS TO HAVE DIALYSIS AT 0900 THIS AM. PATIENT AWARE. NO COMPLAINTS OF PAIN OR DISCOMFORT NOTED THROUGH THE NIGHT. HOURLY ROUNDING AND PATIENT ACCOUNTS SPECIALIST COMPLETED CHARTED
[2018-04-22 08:15] VITALS: BP 148/64
--- NOTE | 2018-04-22 16:28 | NUR ---
PATIENT HAD DIALYSIS THIS AFTERNOON, 2.3L REMOVED PER DIALYSIS NURSE REPORT. DRESSINGS TO BLE'S CHANGED PER PROTOCOL, LODUS BOOTS REMAIN IN PLACE. TURN Q2. PRN TYLENOL GIVEN THIS EVENING FOR FOOT PAIN. AT BEDSIDE.
[2018-04-22 17:10] VITALS: BP 153/66
[2018-04-22 21:00] VITALS: BP 136/59
[2018-04-23 03:55] LABS: PROTIME 38.3 Seconds (9.20-11.50)
--- NOTE | 2018-04-23 05:08 | NUR ---
PATIENT HAS BEEN RESTLESS DURING THE NIGHT AND HAS BEEN CONFUSED. PATIENT ANXIOUS AND IMPULSIVE AT TIMES. PATIENT TRYING TO GET UP OUT OF BED AND GETS VERY IRRITATED WITH NURSING STAFF AND THREATENED TO HIT NURSE AND TECH. VSS ON RA. PATIENT TURNED EVERY 2HRS AND PRN. MEDICATIONS GIVEN ORDERED AND CHARTED. DRESSING'S TO BILATERAL LOWER EXTREMITIES ARE C/D/I AND PROCARE BOOTS IN PLACE. DRESSING TO RIGHT ARM C/D/I. DIALYSIS CATHETER TO RIGHT CHEST AND IV TO RIGHT FOREARM-SL. IV ABT GIVEN WITHOUT ANY ADVERSE SIDE EFFECTS NOTED. FALL PRECAUTIONS IN PLACE AND HOURLY ROUNDS MADE. WILL CONTINUE WITH PLAN OF CARE AND NURSING TO MONITOR.
[2018-04-23 09:30] VITALS: BP 130/64
[2018-04-23 15:42] VITALS: BP 92/34
--- NOTE | 2018-04-23 16:50 | NUR ---
PATIENT UP TO BSC THIS SHIFT X 2, BM'S NOTED. UP WITH GAIT BELT AND WALKER, PATIENT HEAVY ASSIST. REFUSING DINNER THIS EVENING, PATIENT STATED HE HAD CHICKEN LATE THIS AFTERNOON FROM FAMILY. NO INSULIN REQUIRED THIS SHIFT WITH MEALS. PHOTOS TAKEN OF WOUNDS PER PROTOCOL, DRESSINGS CHANGED PER ORDERS. TCOM TESTING TO BE DONE TOMORROW. TURNED Q2. PODUS BOOTS REMAIN IN PLACE TO LADY LE'S.
[2018-04-23 20:00] VITALS: BP 144/65
[2018-04-24 04:12] LABS: HEMATOCRIT 30.9 % (42.0-52.0); HEMOGLOBIN 10.2 gm/dL (14.0-18.0); MCH 28.9 pg (26.0-34.0); MCHC 32.9 g/dL (28.0-37.0); MCV 87.9 fL (80.0-100.0); MPV 7.3 fl. (7.2-11.1); RBC 3.51 mil/uL (4.50-6.00); RDW-CV 18.5 % (10.5-14.5); WBC 7.4 thou/uL (4.0-11.0)
[2018-04-24 04:23] LABS: PROTIME 45.3 Seconds (9.20-11.50)
[2018-04-24 04:29] LABS: INR 4.8
[2018-04-24 04:32] LABS: ALBUMIN 2.3 g/dL (3.4-5.0); CALCIUM 8.2 mg/dL (8.5-10.1); CREATININE 4.3 mg/dL (0.6-1.3); POTASSIUM 4.9 mmol/L (3.5-5.1); TOTAL BILIRUBIN 0.6 mg/dL (<0.1-1.0); TOTAL PROTEIN 5.4 g/dL (6.4-8.2)
--- NOTE | 2018-04-24 07:07 | NUR ---
PATIENT HAS SLEPT WELL THROUGHOUT THE NIGHT WITHOUT ANY ISSUES. NO C/O PAIN. VSS ON RA. DRESSINGS TO LEG WOUNDS ARE C/D/I AND DRESSING TO RIGHT ARM IS C/D/I. PRAFO BOOTS ON BILATERALLY. IV IN RIGHT FOREARM-SL. DIALYSIS CATHETER TO RIGHT CHEST IN PLACE. PATIENT HAS BEEN TURNED EVERY 2 HRS. PATIENT IS INCONTINENT AT TIMES AND THIAGO CARE PERFORMED. FALL PRECAUTIONS IN PLACE AND HOURLY ROUNDS MADE. WILL CONTINUE WITH PLAN OF CARE AND NURSING TO MONITOR.
[2018-04-24 10:57] VITALS: BP 139/67
--- NOTE | 2018-04-24 13:14 | NUR ---
PATIENT IS ALERT AND ORIENTED TODAY. PAIN THAT IS SOMEWHAT CONTROLLED WITH ORAL PAIN MEDICATIONS. TOLERATED THERAPY OKAY TODAY, NEEDS TWO PEOPLE TO GET UP AND AMBULATE ANYWHERE. VITAL SIGNS HAVE BEEN STABLE ON 2 LITERS OF OXYGEN. CALL LIGHT HAS BEEN IN REACH TODAY. PATIENT IS BEING DISCHARGED TO THE [place] TODAY, REPORT GIVEN TO SHONA. PATIENT LEFT VIA WHEEL CHAIR WITH DAUGHTER AND WHEEL CHAIR CLARIFIER OPERATOR HELPER.
--- NOTE | 2018-04-24 15:41 | NUR ---
WOUND CARE NOTE: CONSULT RECEIVED FOR RLE ULCER. PATIENT KNOWN TO ME FROM PREVIOUS HOSPITAL STAY. RIGHT HEEL: INTACT SEROSANGUINEOUS FILLED BLISTER. DEEP TISSUE INJURY MEASURING 3.5X4.5. NO OPENING, NO DRAINAGE. THIAGO-WOUND INTACT. APPLIED BETADINE. COVERED WITH 4X4. SECURED WITH KERLIX. RIGHT FOOT, PLANTAR SURFACE: FULL THICKNESS DIABETIC FOOT ULCER MEASURING 2X4X2.5 PROBES TO BONE. WOUND BED IS MOIST, BLACK/YELLOW. WOUND EDGES ARE DRY, BLACK. CLEANSED WITH WOUND CLEANSER. PAINTED WITH BETADINE AND PACKED WITH AQUACEL AG. COVERED WITH ABD. SECURED WITH KERLIX. RIGHT 4TH TOE: BLACK, DRY ESCHAR. EXTENDS FROM TIP OF TOE ALL THE WAY TO METATARSAL HEAD. APPLIED BETADINE AND ALLOWED TO DRY. BILATERAL ANTERIOR LEGS WITH MULTIPLE AREAS OF ABRASION/PARTIAL THICKNESS WOUNDS. APPLIED OIL EMULSION GAUZE AND SECURED WITH KERLIX. PATIENT TOLERATED DRESSING CHANGES WELL. REPLACED PODUS BOOTS. VASCULAR MUSICAL PERFORMER WAS IN TO ASSESS AREAS WELL. AWAITING TO HAVE TCOM PERFORMED. RECOMMEND PODUS BOOTS TO BILATERAL FEET ENCOURAGE GOOD NUTRITION/HYDRATION TIGHT BLOOD GLUCOSE CONTROL
[2018-04-24 16:00] VITALS: BP 139/68
--- NOTE | 2018-04-24 17:57 | NUR ---
PATIENT HAS BEEN ALERT AND ORIENTED TODAY, FORGETFUL AT TIMES AND CONFUSED ABOUT PROCEDURES AT TIMES. VITAL SIGNS HAVE BEEN STABLE ON ROOM AIR. NO COMPLAINTS OF ANY PAIN TODAY. CALL LIGHT IS IN REACH, BED ALARM IS ON, WILL CONTINUE TO MONITOR.
[2018-04-24 20:00] VITALS: BP 135/68
--- NOTE | 2018-04-25 04:36 | NUR ---
PATIENT ORIENTED X4 ON HOURLY ROUNDS. VITALS STABLE ON ROOM AIR. PATIENT REFUSED REPOSITIONING. PRESSURE BOOTS IN PLACE. NO CONCERNS VOICED AT THIS TIME. BED ALARM ON. CALL LIGHT WITHIN REACH. WILL CONTINUE TO MONITOR.
[2018-04-25 04:46] LABS: INR 4.5; PROTIME 42.7 Seconds (9.20-11.50)
[2018-04-25 10:36] VITALS: BP 145/78
--- NOTE | 2018-04-25 16:51 | NUR ---
ASSUMED CARE OF PATIENT AFTER MORNING REPORT AT APPROX 0720. ALERT AND ORIENTED X4. VSS ON ROOM AIR. NO COMPLAINTS OF PAIN, NAUSEA, OR SOA. PATIENT HAD A NOSE BLEED BEGIN AROUND 0900, PACKING WITH GAUZE AND APPLYING PRESSURE DID NOT STOP THE BLEEDING, DR ONTIVEROS CALLED AND HE ORDERED A CONSULT WITH CARDIOLOGY BE DONE BEFORE ORDERING VITAMIN K FOR BLEEDING. ER CALLED TO COME AND INSERT RHINO ROCKET, SILVER NITRATE WAS USED INSTEAD AND THIS STOPPED THE BLEEDING AT APPROX 1120. PATIENT TAKEN TO WOUND CLINIC AT 1130 FOR VASCULAR SCAN OF RIGHT LOWER EXTREMITY. PATIENT ARRIVED BACK TO THE UNIT AT 1300. PATEINT THEN TAKEN UP TO DIALYSIS AT 1330 AND REMAINS THERE AT THIS TIME. VITAMIN K WAS ORDERED AND GIVEN TO PATIENT WHILE IN DIALYSIS. HOURLY ROUNDS MAINTAINED WHILE PATIENT HAS BEEN IN THE UNIT. NURSING WILL CONTINUE TO MONITOR.
--- NOTE | 2018-04-25 18:41 | NUR ---
PATIENT ARRIVED BACK TO THE UNIT AT 1820 FROM DIALYSIS. REMAISN ALERT AND ORIENTED X4. VS REMAIN STABLE ON ROOM AIR. BLOOD SUGAR 77, HEATED UP PATIENTS DINNER AND HE IS EATING NOW. FAMILY IS PRESENT IN THE ROOM. CALL LIGHT WITHIN REACH, NURSING WILL CONTINUE TO MONITOR.
[2018-04-26 04:30] VITALS: BP 112/43
--- NOTE | 2018-04-26 04:38 | NUR ---
PATIENT ALERT AND ORIENTED BUT IRRITABLE AT TIMES. UP WITH MAX ASSIST X2 TO BSC. DENIES PAIN. TOLERATING DIET. NPO SINCE MIDNIGHT. PRAFO BOOTS IN PLACE TO BILAT FEET. VITALS STABLE ON ROOM AIR. WILL CONTINUE TO MONITOR.
[2018-04-26 05:15] LABS: PROTIME 26.8 Seconds (9.20-11.50)
[2018-04-26 05:44] LABS: INR 2.8
[2018-04-26 07:30] VITALS: BP 139/54
[2018-04-26 10:46] VITALS: BP 145/60
[2018-04-26 12:00] LABS: INR 1.8; PROTIME 17.6 Seconds (9.20-11.50)
[2018-04-26 12:17] VITALS: BP 139/54
[2018-04-26 16:17] VITALS: BP 139/65
--- NOTE | 2018-04-26 16:27 | NUR ---
PATIENT A&OX4, FORGETFUL. ROOM AIR, IV RIGHT FOREARM SALINE LOCK. HAD SURGERY FOR RT AKA TODAY. PRIOR TO 1 BAG OF FFP GIVEN TO BRING DOWN INR. INR DOWN TO 1.8 AFTER TRANSFUSION. TAKEN TO PACU AT 1225. ARRIVED BACK AT ROOM 1500. SLEEPING, RESTING QUIETLY. DENIES ANY PAIN AT THIS TIME. TOLLERATING LIQUIDS FINE. CURRENTLY BEDREST, PT AND OT ORDERED. NO OTHER CONCERNS AT THIS TIME. APPROPRAITE AND COOPORATIVE WITH CARE.
[2018-04-26 16:29] LABS: HEMATOCRIT 26.9 % (42.0-52.0)
[2018-04-26 16:36] LABS: POTASSIUM 4.3 mmol/L (3.5-5.1)
[2018-04-26 20:00] VITALS: BP 134/62
[2018-04-27] VITALS: BP 130/64
--- NOTE | 2018-04-27 02:57 | NUR ---
ASSUMED PT CARE. REPORT RECEIVED FROM NURSE. PT IS ALERT AWAKE ORIENTED X4 . SITTING IN BED . VITAL SIGNS ARE WITHIN NORMAL LIMIT. HE IS ON ROOM AIR AND O2 SATURATION IS 97%. MED GIVEN. ASSESSMENT PERFORMED . REFER TO CHARTING. PT HAS A RIGHT ABOVE KNEE AMPUTATION. THE DRESSING IS DRY AND INTACT. THE SURGICAL KNEE IS ELEVATED ON A PILLOW. TPT IS TURNED Q2 HOURS. PT COMPLAINS OF PAIN AT AROUND MIDNIGHT IN HIS RIGHT AKA. TYLENOL GIVEN . PT IS NOW SLEEPING. NO COMPLAINT OF PAIN. CALL LIGHT AT REACH. WILL CONTINUE TO MONITOR.
[2018-04-27 04:29] LABS: HEMATOCRIT 26.2 % (42.0-52.0); HEMOGLOBIN 8.7 gm/dL (14.0-18.0); MCH 29.2 pg (26.0-34.0); MCHC 33.4 g/dL (28.0-37.0); MCV 87.3 fL (80.0-100.0); RDW-CV 18.9 % (10.5-14.5); WBC 9.8 thou/uL (4.0-11.0)
[2018-04-27 04:37] LABS: INR 1.9; PROTIME 18.1 Seconds (9.20-11.50)
[2018-04-27 04:39] LABS: ALBUMIN 2.5 g/dL (3.4-5.0); CALCIUM 8.5 mg/dL (8.5-10.1); CREATININE 4.6 mg/dL (0.6-1.3); PHOSPHORUS* 6.2 mg/dL (2.5-4.9); POTASSIUM 4.8 mmol/L (3.5-5.1)
[2018-04-27 08:02] VITALS: BP 133/57
--- NOTE | 2018-04-27 09:57 | NUR ---
ASSUMED CARE OF PT THIS AM AROUND 07- MED SURG STATUS IN PLACE AND MAINTAINED- UPON ASSESSMENT PT NOTED TO BE RESTING IN BED, EYES OPEN- PT A&O X4, OCCASSIONAL FORGETFULLNESS NOTED- CONTINENT OF BOWEL AND BLADDER- BED REST IN PLACE WITH Q2 HOUR TURNS IN PLACE INDICATED- LCTA, RESP EVEN AND UN-LABORED- VSS, O2 SAT 97% ON RA- ABDOMEN SOFT/ROUND/NON-TENDER, BS X4 QUADS- PT REPORTS LAST BM 04/26/18- LEFT CHIN ABRASSION NOTED, MANUEL, BOOT TO LLE IN PLACE INDICATED- RIGHT ABOVE KNEE AMP NOTED, DRESSING IN PLACE INDICATED, WITH NO VISIBLE DRAINAGE NOTED; EXTREMITY ELEVATED ON PILLOW- SET UP MEALS INDICATED, POOR PO INTAKE NOTED THIS AM WITH BREAKFAST BOOST GIVEN, BS MONITORED ORDERED- IV NOTED TO RIGHT FA INTACT AND SL- RIGHT CHEST DIALYSIS PORT NOTED INTACT WITH DRESSING- AWAITTING DIALYSIS PLANS THIS SHIFT- PT DENIES ANY C/O PAIN/DISCOMFORT AT THIS TIME- CALL LIGHT AND PERSONAL BELONGINGS WITH IN REACH- HOURLY ROUNDS IN PLACE R/T SAFETY/NEEDS- ALL NEEDS MET AT THIS TIME-WCTM
--- NOTE | 2018-04-27 11:28 | NUR ---
SWITCH FOREMAN SPOKE TO THE PATIENT AND SPOUSE TO DISCUSS DISCHARGE PLANNING NEEDS, AND SKILLED AT [facility] AT D/C. PATIENT'S SPOUSE INFORMS THAT 'I DO NOT WANT HIM TO GO BACK TO [facility], BUT I WOULD LIKE TO HAVE RE-ASSESSED FOR INPATIENT REHAB HERE IN THE HOSPITAL'. PATIENT THEN SATES 'I'M NOT GOING TO NO REHAB.' SWITCH FOREMAN EXPLAINED WHAT THE REHAB WOULD BE FOR. PATIENT CONTINUES TO STATES 'I DON'T CARE. I'M NOT GOING TO REHAB! I DON'T EVEN HAVE A LEG ANYMORE, AND I'M NOT GOING TO REHAB!' SWITCH FOREMAN INFORMED THE PATIENT'S SPOUSE THAT THE PATIENT MUST BE IN AGREEMENT WITH THE PLAN TO GO TO REHAB, AND THAT WE CAN NOT FORCE HIM TO DO ANYTHING THAT HE DOES NOT WANT TO DO. SWITCH FOREMAN INFORMED CM OF ALL INFO. CM WILL REMAIN AVAILABLE TO ASSIST AND FOLLOW NEEDED.
[2018-04-27 12:00] VITALS: BP 130/50
--- NOTE | 2018-04-27 18:22 | NUR ---
PT DIGNA RESTING IN BED, FAMILY AT SIDE VISITING- M/S STATUS IN PLACE AND MAINTAINED INDICATED- SET UP WITH MEALS REQUIRED, FAIR PO INTAKE NOTED WITH DINNER THIS SHIFT-BS MONITORED ORDERED, NO INSULIN NEEDED THIS SHIFT PT OFF UNIT FROM AROUND 1300 TO 1630 FOR DIALYSIS, REPORTED TO HAVE REMOVED 0.5 L- PT C/O NAUSEA X1 DURRING DIALYIS WITH ZOFRAN GIVEN AT 1443- UPON RETURNING FROM DIALYIS PT REPORTS PAIN 5/10 TO RLE, PRN TYLENOL GIVEN AT 1705- PT REPORTS MEDICATION TO USAMA EFFECTIVE- DRESSING TO RIGHT AMP IN PLACE INDICATED, LEG ELEVATION IN PLACE- CARDIOLOGY NOTED TO SIGN OFF THIS SHIFT- CALL LIGHT AND PERSONAL BELONGINGS WITH IN REACH- Q2 HOUR TURNS IN PLACE INDICATED- HOURLY ROUNDS IN PLACE R/T SAFETY/NEEDS- ALL NEEDS MET AT THIS TIME-WCTM
[2018-04-27 20:00] VITALS: BP 110/43
[2018-04-27 22:14] LABS: HEPATITIS B SURFACE AG Negative (Negative)
[2018-04-28] VITALS: BP 110/43
[2018-04-28 04:00] VITALS: BP 108/44
[2018-04-28 04:25] LABS: ABSOLUTE BASOPHILS 0.1 thou/uL (0.0-0.2); ABSOLUTE EOSINOPHILS 0.3 thou/uL (0.0-0.7); ABSOLUTE LYMPHOCYTES 1.1 thou/uL (0.8-5.3); ABSOLUTE MONOCYTES 1.3 thou/uL (0.0-1.2); ABSOLUTE NEUTROPHILS 6.6 thou/uL (1.6-8.1); BASOPHILS 0.6 %; EOSINOPHILS 3.2 %; HEMATOCRIT 22.2 % (42.0-52.0); HEMOGLOBIN 7.5 gm/dL (14.0-18.0); LYMPHOCYTES 11.8 %; MCH 29.2 pg (26.0-34.0); MCHC 33.6 g/dL (28.0-37.0); MCV 86.9 fL (80.0-100.0); MONOCYTES 13.8 %; MPV 7.1 fl. (7.2-11.1); NUCLEATED RBCS 0 /100WBC; PLATELET COUNT* 153 thou/uL (150-400); POLYS 70.6 %; RBC 2.56 mil/uL (4.50-6.00); RDW-CV 18.5 % (10.5-14.5); WBC 9.3 thou/uL (4.0-11.0)
[2018-04-28 04:37] LABS: TOTAL BILIRUBIN 0.6 mg/dL (<0.1-1.0); TOTAL PROTEIN 5.2 g/dL (6.4-8.2)
[2018-04-28 04:41] LABS: CREATININE 2.8 mg/dL (0.6-1.3)
--- NOTE | 2018-04-28 06:24 | NUR ---
Oriented x 3, hard of hearing, possibly forgetful. Patient has been hostile to this nurse since I first went in his room. He called me an idiot for no apparent reason. His dressing to his rt leg is dry and intact and has a type of plastic over the acewrap dressing from post op. His lungs are clear and slightly diminished. Vitals have been stable. He has been turned every 2 hours. He had dialysis yesterday and hasn't voided this shift. He is wearing his prafo boot LLE. He has a dialysis cath to his rt chest which has 2 ports. He has been very uncooperative with this nurse so i was unable to investigate it further. He was cooperative enough to take his meds. He has slept.
[2018-04-28 08:00] VITALS: BP 125/50
--- NOTE | 2018-04-28 09:00 | NUR ---
ASSUMED PT. CARE AND RECEIVED REPORT AT 0730. PT A/OX4 WITH SOME NOTED CONFUSION, VSS. PT. DENIES CURRENT PAIN/SOB. ON RA @ 97%. FULL ASSESSMENT COMPLETED, REFER TO CHARTING. PT. APPETITE IMPROVED THIS MORNING, ATE APPROX. 50% OF BREAKFAST, TOLERATED WELL WITH NO NAUSEA NOTED. RIGHT AMPUTATION SURGICAL DRESSING REMAINS IN PLACE C//D/I. LEFT FOOT BOOT IN PLACE WITH BANDAGE TO LEFT COOK C/D/I. PT. AND SON AT BEDSIDE. CALL LIGHT IN REACH, WILL CONTINUE WITH PLAN OF CARE.
--- NOTE | 2018-04-28 14:00 | NUR ---
DISCUSSED PT.WITH . REHAB CONSULT PUT IN. WOULD MOST LIKELY NEED LOW ENDURANCE PROGRAM. PT.WOULDN'T TOTALLY AGREE TO REHAB BUT WAS NOT NEGATIVE ON 04/27. CM WILL FOLLOW.
--- NOTE | 2018-04-28 14:59 | OP ---
[address] [address] OPERATIVE REPORT Name: KEVIN EL Room: [address] IN ..#: [id number] Admission: 04/19/18 Attend Phys: Jaziel Koehler MD Discharge: Date of : 32 Report #: [id number] THIS REPORT FOR: //name// CC: Jaziel Keys DATE OF SERVICE: 04/26/2018 PREOPERATIVE DIAGNOSIS: Critical right lower extremity ischemia with no further revascularization options. POSTOPERATIVE DIAGNOSIS: Critical right lower extremity ischemia with no further revascularization options. OPERATION: Right above knee amputation. SURGEON: Simba Travis DO. HISTOTECHNOLOGIST: Gordy Chairez, PGY3. ANESTHESIA: General. ESTIMATED BLOOD LOSS: 250 mL. FLUIDS: See anesthesia report. URINE OUTPUT: None. SPECIMENS: Right leg. COMPLICATIONS: None. IMPLANTS: None. FINDINGS: The patient had a standard above-knee amputation performed. He had good pulsatile bleeding at that level. This was all controlled with cautery and suture ligatures. His skin is reapproximated well without any undue tension. CLINICAL HISTORY: The patient is an 87-year-old man with a known critical right lower extremity ischemia. He has undergone multiple revascularizations including cryopreserved tibial artery bypass. His wounds have not healed. He has no further revascularization options. TCOM testing suggested that above knee amputation was the best option for wound healing potential. DETAILS OF PROCEDURE: After informed consent was obtained, the patient was [facility] [address] [place] [address] OPERATIVE REPORT Name: KEVIN EL Room: [address] IN .R.#: [id number] Admission: 04/19/18 Attend Phys: Jaziel Koehler MD Discharge: Date of : 32 Report #: [id number] taken to the operating room and placed on the OR bed in supine position, administered general anesthesia by Anesthesia team. Right lower extremity was prepped and draped in usual sterile fashion. Full timeout was performed identifying correct patient and procedure. Next, standard fishmouth incision was made about 4 fingerbreadths above the patella. Dissection was carried down through skin and subcutaneous tissue, both sharp and electrocautery. The femur was circumferentially mobilized. Periosteal elevator was used to elevate periosteal edges circumferentially around the femur. I then transected the femur with the oscillating bone saw, used a rongeur to remove any spurs. Once the femur was felt to be adequate, the femoral vessels were ligated with 0 silk suture ligatures. The nerve was transected far proximally into the wound this could reach. Once hemostasis was ensured, the wound was irrigated with some antibiotic solution. It was then closed in layers with 0 and 2-0 Vicryl and brian in the skin. A sterile dressing was applied. All sponge, sharp and instrument counts reported as correct x 2. He tolerated the procedure well and was transferred to recovery area in stable condition. <ELECTRONICALLY SIGNED> By: Simba Travis DO 04/28/18 1459 1424 [id number] Travis DO /nt
[2018-04-28 15:18] VITALS: BP 114/54
[2018-04-28 19:30] VITALS: BP 103/52
--- NOTE | 2018-04-28 19:35 | NUR ---
PT. STABLE THROUGH OUT THE DAY. REFUSED TO WORK WITH THERAPY OR TALK TO THERAPIST. MANY FAMILY MEMEBERS HERE MOST OF THE DAY. PT. VERY IRRITABLE WITH STAFF DURING CARE. APPETITE REMAINED BETTER TODAY, PT. ATE [employer] FOR DINNER THAT FAMILY BROUGHT IN AND SOME BISCUITS AND GRAVEY AT LUNCH. PT. BECOMING CONFUSED AT SHIFT CHANGE, ASKED TO GO DOWNSTAIRS TO MEET HIS FOR A . ATTEMPTED TO REORIENTATE AND PT. BECOMING MAD. CALLED PT. FOR HIM TO TALK WITH AND THIS SEEMED TO CALM HIM DOWN. HOURLY ROUNDING COMPLETED THROUGH OUT THE DAY FOR PT. SAFETY. PT. REPOSITIONED Q2 FOR PRESSURE RELIEF. WOUND CARE COMPLETED TO LEFT LE. RIGHT LE DRESSING REMAINS C/D/I. PT. PAIN WELL TOLERATED TODAY WITH TREATEMENT OF TYLENOL.
[2018-04-29] VITALS: BP 102/50
[2018-04-29 04:43] LABS: HEMATOCRIT 23.6 % (42.0-52.0)
[2018-04-29 04:47] LABS: PROTIME 51.3 Seconds (9.20-11.50)
[2018-04-29 05:02] LABS: INR 5.1
[2018-04-29 06:04] LABS: INR 5.4; PROTIME 54.3 Seconds (9.20-11.50)
[2018-04-29 06:18] LABS: ALBUMIN 2.2 g/dL (3.4-5.0); CALCIUM 8.2 mg/dL (8.5-10.1); CREATININE 4.4 mg/dL (0.6-1.3); POTASSIUM 3.9 mmol/L (3.5-5.1)
--- NOTE | 2018-04-29 07:47 | NUR ---
RECEIVED REPORT AND ASSUMED CARE AT 1900. VSS. CARDIAC MONITORING IN PLACE. PT DENIES ANY COMPLAINTS OF PAIN. ASSESSMENT COMPLETED CHARTED. DISCUSSED PLAN OF CARE WITH PT, VERBALIZED UNDERSTANDING. MEDICATION ADMIN PER ORDERS. PT ON RA, BEDREST. POSITION CHANGED EVERY TWO HOURS. BED LOCKED IN LOWEST POSITION, CALL LIGHT WITHIN REACH, HOURLY ROUNDING COMPLETED AND ALL NEEDS MET. WILL CONTINUE TO MONITOR LABS = INR 5.1 REDRAW ORDERED BY PHYSICIAN INR 5.4. PHYSICIAN MADE AWARE.
[2018-04-29 08:00] VITALS: BP 131/61
--- NOTE | 2018-04-29 08:40 | NUR ---
ASSUMED PT. CARE AND RECEIVED REPORT AT 0730. PT A/OX4, WITH SOME BASELINE CONFUSION NOTED. VSS, PT. MED/SURG STATUS. DENIES CURRENT PAIN/SOB. ON RA @ 99%. FULL ASSESSMENT COMPLETED, REFER TO CHARTING. PT. AT BEDSIDE. SUPERVISORY IT SPECIALIST HERE, READY FOR DIALYSIS THIS MORNING. PT. TRANSFERED UPSTAIRS. WILL CONTINUE TO MONITOR.
[2018-04-29 15:42] VITALS: BP 153/60
--- NOTE | 2018-04-29 17:51 | NUR ---
PT. COMPLETED DIALYSIS TODAY, TOLERATED OKAY. FAIRLY QUIET MOST OF THE SHIFT, DID NOT ALWAYS ANSWER STAFF'S DIRECT QUESTIONS, BUT WAS COMMUNICATING WITH FAMILY. APPETITE VERY POOR TODAY, LITTLE INTAKE EXCEPT [employer] THAT FAMILY BROUGHT IN. DISCUSSED NO BM SINCE SURGERY WITH PT/FAMILY. PT. BECAME VERY AGITATED, STATES HE HAS HAD 3 BM'S. BOTH FAMILY AND CHARTING OF PT. DO NOT SHOW ANY. ATTEMPTED TO GIVE MIRALAX, PT. RESISTANT TO DRINK. LEFT WITH TO ENCOURAGE INTAKE. HOURLY ROUNDING COMPLETED THROUGH OUT THE DAY FOR PT. SAFETY.
[2018-04-29 19:30] VITALS: BP 116/47
[2018-04-30] VITALS: BP 124/46
--- NOTE | 2018-04-30 04:54 | NUR ---
RECEIVED REPORT AND ASSUMED CARE AT 1900. VSWS. CARDIAC MONITORING IN PLACE. PT REPORTS PAIN IN R LEG. PRN MEDICATION ADMIN PER ORDERS. ASSESSMENT COMPELTED CHARTED. DISCUSSED PLAN OF CARE WITH PT, VERBALIZED UNDERSTANDING. MEDICATION ADMIN PER EMAR. HOURLY ROUDNING COMPLETED AND ALL NEEDS MET. POSITION CHANGE ENCOURAGED EVERY TWO HOURS, PT COMPLIANT WITH SOME POSITION CHANGES, ON REFUSALS. PT EDUCATED ON RISK OF NOT OFF LOADING. PT VERBALIZED UNDERSTANDING. BED LOCKED IN LOWEST POSITION CALL LIGHT WITHIN REACH. WILL CONTINUE TO MONITOR
[2018-04-30 05:04] LABS: HEMOGLOBIN 8.3 gm/dL (14.0-18.0); MCH 29.4 pg (26.0-34.0); MCHC 33.2 g/dL (28.0-37.0); MCV 88.6 fL (80.0-100.0); MPV 7.3 fl. (7.2-11.1); RBC 2.82 mil/uL (4.50-6.00); RDW-CV 19.6 % (10.5-14.5); WBC 8.8 thou/uL (4.0-11.0)
[2018-04-30 05:23] LABS: CALCIUM 8.1 mg/dL (8.5-10.1); MAGNESIUM 1.9 mg/dL (1.8-2.4); POTASSIUM 4.1 mmol/L (3.5-5.1); TROPONIN-I LEVEL 0.14 ng/mL (<0.06)
[2018-04-30 05:50] LABS: INR 4.8
[2018-04-30 05:51] LABS: PROTIME 48.8 Seconds (9.20-11.50)
[2018-04-30 08:00] VITALS: BP 134/54
--- NOTE | 2018-04-30 08:00 | NUR ---
ASSUMED PT. CARE AND RECEIVED REPORT AT 0730. PT A/OX4 WITH SOME BASELINE CONFUSION AT TIMES, VSS. FULL ASSESSMENT COMPLETED, REFER TO CHARTING. PT. WITH NO REAL COMPLAINTS THIS MORNING. REQUESTING BISCUITS AND GRAVEY FOR BREAKFAST, TOLERATED WELL WITH DECENT APPETITE. PT. GIVEN FULL BED BATH AND LINEN CHANGED. DISCUSSED PLAN OF CARE TO SIT ON EDGE OF BED TODAY, PT. AGREED TO TRY LATER. PT. /SON AT BEDSIDE. WILL CONTINUE WITH PLAN OF CARE.
[2018-04-30 15:53] VITALS: BP 126/75
[2018-04-30 20:00] VITALS: BP 125/51
[2018-05-01] VITALS: BP 124/62
[2018-05-01 05:16] LABS: HEMATOCRIT 24.3 % (42.0-52.0); HEMOGLOBIN 8.2 gm/dL (14.0-18.0); MCH 29.7 pg (26.0-34.0); MCHC 33.5 g/dL (28.0-37.0); MCV 88.4 fL (80.0-100.0); RBC 2.75 mil/uL (4.50-6.00); RDW-CV 19.3 % (10.5-14.5); WBC 8.4 thou/uL (4.0-11.0)
[2018-05-01 05:45] LABS: CALCIUM 7.9 mg/dL (8.5-10.1); CREATININE 4.3 mg/dL (0.6-1.3); POTASSIUM 4.2 mmol/L (3.5-5.1); TROPONIN-I LEVEL 0.12 ng/mL (<0.06)
[2018-05-01 06:02] LABS: INR 5.3; PROTIME 53.9 Seconds (9.20-11.50)
--- NOTE | 2018-05-01 07:05 | NUR ---
A&O X4 CONFUSED AT TIMES NEED REORINTATION. PT BED BOUND/CHAIR FAST. COMPLETLE DEPENDENT TRANSFER. RA. SR ON THE MONITOR. VITALS WNL. SEE MAR. SEE CHARTING. HOURLY ROUNDING FOR SAFETY. FALL PRECAUTIONS IN PLACE.
[2018-05-01 07:55] VITALS: BP 111/50
[2018-05-01 12:08] VITALS: BP 128/68
--- NOTE | 2018-05-01 18:07 | NUR ---
PATIENT A&OX4, FORGETFUL. ROOM AIR, IV RIGHT FOREARM SALINE LOCK. UP WITH THERAPY, MAX ASSIST. SAT ON SIDE OF BED TODAY WITH THERAPY. RIGHT AKA, NO C/O PAIN/N/V. INCREASE IN APPETITE, EATING 50%+ OF MEALS TODAY. VASCULAR TO CHANGE DRSG TO RIGHT AKA, HAVE NOT SEEN YET. NO OTHER CONCERNS AT THIS TIME. APPROPRIATE AND COOPORATIVE WITH CARE.
[2018-05-01 19:50] VITALS: BP 100/48
[2018-05-02] VITALS: BP 98/44
[2018-05-02 05:07] LABS: ALBUMIN 2.1 g/dL (3.4-5.0); CALCIUM 7.9 mg/dL (8.5-10.1); POTASSIUM 4.4 mmol/L (3.5-5.1); TOTAL BILIRUBIN 0.6 mg/dL (<0.1-1.0); TOTAL PROTEIN 5.1 g/dL (6.4-8.2)
[2018-05-02 05:09] LABS: CREATININE 5.4 mg/dL (0.6-1.3)
[2018-05-02 05:35] LABS: INR 5.5
[2018-05-02 05:36] LABS: PROTIME 55.8 Seconds (9.20-11.50)
--- NOTE | 2018-05-02 07:34 | NUR ---
A&O X4 CALM COOPERITIVE, CONFUSED AT TIME CAN BE REORIENTATED. [id number]. PT REMOVED BOOT FOR WOUND, WAS REPLACED IN AM. MED SURGE STATUS. VITALS WNL. SEE MAR. SEE CHARTING. VITALS WNL. FALL PRECAUTIONS IN PLACE. HOURLY ROUNDING FOR SAFETY.
[2018-05-02 08:30] VITALS: BP 111/45
--- NOTE | 2018-05-02 09:59 | NUR ---
RECEIVED CONSULT FOR POSSIBLE REHAB ADMISSION. CONSULT HAS BEEN ACKNOWLEDGED BY FOREST AIDE AND DR. DESHPANDE. PT IS Benja JANE. OT/ST EVALUATIONS ARE PENDING. PT EVALUATION PATIENT ONLY ABLE TO SIT EOB FOR SHORT TIME. NEED MUCH ENCOURAGEMENT AND REFUSED SOME ACTIVITIES. WILL AWAIT OT/ST EVALUATIONS AND SEE HOW PATIENT PROGRESSES WITH ALL THERAPIES. UNSURE PATIENT WILL BE ABLE OR WILLING TO PARTICIPATE IN 3 HOURS OF THERAPY PER DAY. PATIENT MAY BENEFIT FROM SKILLED VS REHAB ONCE MEDICALLY STABLE. THANK YOU FOR THIS CONSULT.
[2018-05-02 12:00] VITALS: BP 123/48
--- NOTE | 2018-05-02 12:07 | NUR ---
Spoke with rehabilitation director, rehab consult placed. OT/ST cog evals ordered.
--- NOTE | 2018-05-02 18:17 | NUR ---
PATIENT HAS BEEN ALERT AND ORIENTED TODAY. UP WITH THERAPY TO COMMODE AND CHAIR TODAY, TOLERATED WELL. APPETITE GOOD THIS MORNING FOR BREAKFAST. SOME PAIN THAT IS CONTROLLED WITH ORAL PAIN MEDICATIONS. PATIENT WENT TO DIALYSIS TODAY AT 1400. CALL LIGHT IS IN REACH, WILL CONTINUE TO MONITOR.
[2018-05-02 20:00] VITALS: BP 129/56
[2018-05-03] VITALS: BP 98/40
[2018-05-03 05:03] LABS: PROTIME 34.6 Seconds (9.20-11.50)
[2018-05-03 05:04] LABS: INR 3.4
--- NOTE | 2018-05-03 05:06 | NUR ---
PATIENT REFUSED IV ATTEMPT PER PROTOCOL.
--- NOTE | 2018-05-03 06:55 | NUR ---
PATIENT RESTED IN BED, NO ACUTE CHANGES. PATIENT DID NOT SHOW SIGNS OF DISTRESS. FALL PRECAUTIONS IN PLACE, BED ALARM ON, CALL LIGHT WITH IN REACH, HOURLY ROUNDING OBSERVED. PATIENT OFFER TURNS Q TWO HOURS.
[2018-05-03 08:01] VITALS: BP 101/46
--- NOTE | 2018-05-03 09:15 | NUR ---
Spoke with vocational rehabilitation technician yesterday, rehab is considering Pt for acute rehab. Anticipate dc soon. Following.
--- NOTE | 2018-05-03 09:20 | NUR ---
ASSUMED CARE OF PT THIS AM AROUND 714- MS STATUS IN PLACE AND MAINTAINED- UPON ASSESSMENT PT NOTED TO BE RESTING IN BED, FAMILY AT SIDE VISITTING- BEDREST IN PLACE, Q 2 HOUR TURNS- CONTINENT OF BOWEL AND BLADDER- LCTA, RESP EVEN AND [id number], O2 SAT 97% ON RA- ABDOMEN SOFT/ROUND/NON-TENDER, BS X4 QUADS- LAST BM REPORTED X3 DAYS AGO- IV NOTED TO RIGHT FA, PT REFUSES TO HAVE CHANGED- FAIR PO INTAKE NOTED THIS AM WITH BREAKFAST, BS MONITORED PRESCIBED- RIGHT AKA NOTED WITH BERYL WRAP IN PLACE, LLE WITH BOOT IN PLACE, DRESSING IN PLACE TO LLE WITH FOAL DRESSING NOTED TO LATERAL LEFT KNEE- PT DENIES ANY C/O PAIN/DISCOMFORT- CALL LIGHT AND PERSONAL BELONGINGS WITH IN REACH- HOURLY ROUNDS IN PLACE R/T SAFETY/NEEDS- ALL NEEDS MET AT THIS TIME-WCTM
--- NOTE | 2018-05-03 12:05 | PATH ---
[address] [address] PATHOLOGY RPT PROCEDURE Name: KEVIN EL Room: [address] IN M.R.#: [id number] Admission: 04/19/18 Date of : 32 Discharge: Report #: [id number] Path Case #: [id number] [facility] Accession Number: [id number] . 01 Material submitted: . RIGHT ABOVE THE KNEE AMPUTATION . 01 Clinical history: . None provided . 02 Diagnosis: Leg, right above the knee amputation: - Gangrenous necrosis associated with surface ulceration. - Acute inflammation extending into underlying subcutaneous tissue and bone. - Skin and bone margin viable and unremarkable. - Vascular margin unremarkable. - Vessels showing calcific sclerosis. (IUV:monique; 05/02/2018) QMS/05/03/2018 . 02 Electronically signed: . Lauryn Baker MD, Pathologist NPI- [id number] . 01 Gross description: . Received in a red biohazard bag, labeled "Kevin El and right above the knee amputation", is a above the knee amputation of right leg measuring 16 cm from proximal skin resection margin to heel and 22 cm from heel to distal tip of third toe. Extending above the soft tissue resection margin is a segment of femur measuring 7.0 cm in length by 2.8 x 2.8 cm. The skin, soft tissue and bone at the margin appear viable. The femoral artery at the margin is patent. The first and second toes are previously amputated. The fourth digit is black-brown and mummified. There is a 3.2 x 2.0 cm ulcer with valdivia-white and necrotic ulcer bed adjacent to the fourth digit on the plantar aspect. The heel has 3.5 x 3.0 cm hyperemic and edematous area. Sectioning through the fourth digit and plantar ulcer show a necrotic skin and underlying soft tissue with possible extension to the bone. The anterior and posterior vessels shows intimal thickening. Pumper Gauger sections are submitted as follows: A1. Margin, skin, underlying soft tissue and muscle A2. Margin Femur after decalcification A3. Margin, Vascular A4. Third toe, cross-section after decalcification A5. Plantar Ulcer, after decalcification A6. Heel A7. Anterior and posterior [place] [address] PATHOLOGY RPT PROCEDURE Name: KEVIN EL Room: [address] IN [facility].#: [id number] Admission: 04/19/18 Date of : 32 Discharge: Report #: [id number] Path Case #: [id number] ([facility]; 04/28/2018) / . 02 Pathologist provided ICD-10: I70.261 . 02 CPT . 999652, [id number] Performed at: [address] [facility] [id number] [facility] [address], [place], [place] [id number] MD Alonso Mcgovern MD Phone: [phone] Performed at: [address] [id number] MD Lauryn Baker MD Phone: [phone]
--- NOTE | 2018-05-03 12:44 | OP ---
[address] [address] OPERATIVE REPORT Name: NIKKOKEVIN F Room: [address] IN .R.#: [id number] Admission: 04/19/18 Attend Phys: Jaziel Koehler MD Discharge: Date of : 32 Report #: [id number] THIS REPORT FOR: //name// CC: Jaziel Swane Ludmila DATE OF SERVICE: 04/25/2018 TRANSCUTANEOUS OXYGEN MEASUREMENT REPORT INDICATION: For non-healing right lower extremity wounds, severe PAD. FINDINGS: TCOM measurements at baseline site one is 58, site two is 42, site three is 48, site four is 40, site five is 33 and site six is 64. He did have some slight augmentation with oxygen supplementation. IMPRESSION: Transcutaneous oxygen measurements suggest poor oxygenation below the knee and likely inadequate for wound healing. <ELECTRONICALLY SIGNED> By: Simba Travis DO 05/03/18 1244 1143 [id number] Travis DO /nt
[2018-05-03 12:57] VITALS: BP 108/56
[2018-05-03] MEDS ORDERED: COLACE100 MG PO (14:53)
[2018-05-03] MEDS ORDERED: EPOGEN10000 UNIT IV PUSH (14:56)
[2018-05-03] MEDS ORDERED: HYDRALAZINE 10M10 MG IV PUSH (14:59)
[2018-05-03] MEDS ORDERED: PROTONIX40 M1 PO (15:00)
[2018-05-03] MEDS ORDERED: THERAGRAN-M PR1 EAC1 PO (15:00)
[2018-05-03] MEDS ORDERED: TYLENOL325 MG PO (15:01)
[2018-05-03 15:21] VITALS: BP 108/56
[2018-05-03 16:30] VITALS: BP 115/54
--- NOTE | 2018-05-03 18:59 | NUR ---
ORDERS RECIEVED FOR OKAY TO D/C TO REHAB THIS SHIFT JPER AND SET UP PER CM- IV TO RIGHT FA D/C PRIOR TO LD/C-VASCULAR HERE THIS SHIFT TO CHANGE DRESSING TO AKA INCISSION WITH NEW DRESSING APPLIED, UNABLE TO TAKE PICS OF STUMP PRIOR TO D/C FOR THIS REASON- PICS OBATINED OF LLE, LEFT GREAT TOE, RUE AND BUTTOCK PRIOR TO D/C AND PLACED ON CHART FOR VIEWING- DRESSING TO LLE AND RUE CHANGED INDICATED- LEFT BUTTOCKS NOTED WITH OPEN AREA, AREA CLEANED WITH FOAM DRESSING APPLIED-NURSE TO ASSUME CARE UPDATED ON WOUND WITH PICS SENT TO FURTHER ASSESS- REPORT CALLED TO PEG RN AT 1740 WITH ALL QUESTIONS AND CONCERNS ADDRESSED PRIOR TO D/C- STUMP SHRINK FIT TODAY AND APPLIED ORDERED- BELONGINGS PACKED AND ACCOUNTED FOR PER TECH- PT ESCORTED PER TECH WITH BELONGINGS VIA BED TO ROOM 322- NO PROBLEMS TO NOTE AT TIME OF TRANSFER OF 1844
[2018-05-03] MEDS ORDERED: B12INJ IM (19:27)
== END 2018-05-03 18:46 | DRG 853 ==
LOC: M.WC 01:37 → M.ORTHSURG 12:29 → M.2W 04-26 17:40
PROVIDERS: Family Medicine; Internal Medicine; Internal Medicine Nephrology; Surgery; ADMIT Internal Medicine
PROC: 5A1D70Z Performance of Urinary Filtration, Intermittent, Less than 6 Hours Per Day (ICD-10-PCS; principal; 2018-04-20)
PROC: 5A1D70Z Performance of Urinary Filtration, Intermittent, Less than 6 Hours Per Day (ICD-10-PCS; 2018-04-22)
PROC: 30233K1 Transfusion of Nonautologous Frozen Plasma into Peripheral Vein, Percutaneous Approach (ICD-10-PCS; 2018-04-26)
PROC: 30233L1 Transfusion of Nonautologous Fresh Plasma into Peripheral Vein, Percutaneous Approach (ICD-10-PCS; 2018-04-26)
PROC: 0Y6C0Z1 Detachment at Right Upper Leg, High, Open Approach (ICD-10-PCS; 2018-04-26)
PROC: 5A1D70Z Performance of Urinary Filtration, Intermittent, Less than 6 Hours Per Day (ICD-10-PCS; 2018-04-29)
PROC: 5A1D70Z Performance of Urinary Filtration, Intermittent, Less than 6 Hours Per Day (ICD-10-PCS; 2018-05-03)
DX: A41.9 Sepsis, unspecified organism (principal); N18.6 End stage renal disease; E43 Unspecified severe protein-calorie malnutrition; E11.52 Type 2 diabetes mellitus with diabetic peripheral angiopathy with gangrene; M31.9 Necrotizing vasculopathy, unspecified; Z68.1 Body mass index [BMI] 19.9 or less, adult; I70.268 Atherosclerosis of native arteries of extremities with gangrene, other extremity; I42.9 Cardiomyopathy, unspecified; L03.115 Cellulitis of right lower limb; I13.2 Hypertensive heart and chronic kidney disease with heart failure and with stage 5 chronic kidney disease, or end stage renal disease; E11.621 Type 2 diabetes mellitus with foot ulcer; I25.10 Atherosclerotic heart disease of native coronary artery without angina pectoris; I48.2 Chronic atrial fibrillation; E78.5 Hyperlipidemia, unspecified; F03.90 Unspecified dementia, unspecified severity, without behavioral disturbance, psychotic disturbance, mood disturbance, and anxiety; D63.8 Anemia in other chronic diseases classified elsewhere; R62.7 Adult failure to thrive; D50.9 Iron deficiency anemia, unspecified; A49.01 Methicillin susceptible Staphylococcus aureus infection, unspecified site; Z95.2 Presence of prosthetic heart valve; Z88.0 Allergy status to penicillin; Z91.040 Latex allergy status; Z87.891 Personal history of nicotine dependence; I25.2 Old myocardial infarction; Z95.0 Presence of cardiac pacemaker; Z89.422 Acquired absence of other left toe(s); Z79.82 Long term (current) use of aspirin; Z79.899 Other long term (current) drug therapy; Z79.01 Long term (current) use of anticoagulants

== ENCOUNTER 2018-05-03 14:02 | Inpatient (IN) | payer MEDICARE ==
[~2018-05-03] VITALS: Ht 182.9 cm; Wt 57.2 kg
[2018-05-03] MEDS ORDERED: COLACE100 MG PO (14:53)
[2018-05-03] MEDS ORDERED: EPOGEN10000 UNIT IV PUSH (14:56)
[2018-05-03] MEDS ORDERED: HYDRALAZINE 10M10 MG IV PUSH (14:59)
[2018-05-03] MEDS ORDERED: PROTONIX40 M1 PO (15:00)
[2018-05-03] MEDS ORDERED: THERAGRAN-M PR1 EAC1 PO (15:00)
[2018-05-03] MEDS ORDERED: TYLENOL325 MG PO (15:01)
[2018-05-03] MEDS ORDERED: B12INJ IM (19:27)
[2018-05-04 04:33] LABS: MCH 29.7 pg (26.0-34.0); MCHC 33.3 g/dL (28.0-37.0); MCV 89.4 fL (80.0-100.0); MPV 6.8 fl. (7.2-11.1); RBC 2.68 mil/uL (4.50-6.00); RDW-CV 20.8 % (10.5-14.5); WBC 9.7 thou/uL (4.0-11.0)
[2018-05-04 04:53] LABS: CALCIUM 8.2 mg/dL (8.5-10.1); POTASSIUM 4.1 mmol/L (3.5-5.1)
[2018-05-04 20:00] VITALS: BP 142/52
[2018-05-05 07:30] VITALS: BP 142/110
[2018-05-05 19:45] VITALS: BP 104/53
[2018-05-06 04:20] LABS: ALBUMIN 2.1 g/dL (3.4-5.0); CALCIUM 8.2 mg/dL (8.5-10.1); CREATININE 3.7 mg/dL (0.6-1.3); PHOSPHORUS* 3.4 mg/dL (2.5-4.9); POTASSIUM 4.1 mmol/L (3.5-5.1)
[2018-05-06 07:55] VITALS: BP 118/48
[2018-05-06 19:25] VITALS: BP 118/58
[2018-05-07 07:40] VITALS: BP 121/56
[2018-05-07 19:25] VITALS: BP 114/53
[2018-05-08 04:27] LABS: HEMATOCRIT 25.6 % (42.0-52.0); HEMOGLOBIN 8.3 gm/dL (14.0-18.0); MCH 29.9 pg (26.0-34.0); MCHC 32.4 g/dL (28.0-37.0); MCV 92.3 fL (80.0-100.0); MPV 6.7 fl. (7.2-11.1); RBC 2.77 mil/uL (4.50-6.00); RDW-CV 23.6 % (10.5-14.5); WBC 8.4 thou/uL (4.0-11.0)
[2018-05-08 04:56] LABS: ALBUMIN 2.1 g/dL (3.4-5.0); CALCIUM 7.9 mg/dL (8.5-10.1); CREATININE 3.5 mg/dL (0.6-1.3); MAGNESIUM 1.9 mg/dL (1.8-2.4); POTASSIUM 3.4 mmol/L (3.5-5.1); TOTAL BILIRUBIN 0.7 mg/dL (<0.1-1.0); TOTAL PROTEIN 5.1 g/dL (6.4-8.2)
[2018-05-08 08:00] VITALS: BP 127/61
[2018-05-08 13:15] LABS: PROTIME 20.1 Seconds (9.20-11.50)
[2018-05-08 19:50] VITALS: BP 115/54; BP 124/46
[2018-05-09 08:04] VITALS: BP 143/60
[2018-05-09 23:17] VITALS: BP 103/57
[2018-05-10 07:27] LABS: INR 1.9; PROTIME 19.7 Seconds (9.20-11.50)
[2018-05-10 08:00] VITALS: BP 111/52
--- NOTE | 2018-05-10 13:47 | PLAN ---
[facility] [address] [place] [address] REHAB UNIT PLAN OF CARE Name: KEVIN EL Room: [address] IN [facility].#: [id number] Admission: 05/03/18 Attend Phys: Maria Elena Jean DO Discharge: Date of : 32 Report #: [id number] THIS REPORT FOR: //name// CC: Maria Elena Keys This is an 87-year-old male admitted to inpatient rehabilitation to facilitate safe discharge home, status post prolonged acute hospitalization for nonhealing right lower extremity wound, which then became gangrenous. Ultimately, a right above knee amputation was performed to control infection. He did go into acute renal failure, is currently on dialysis Tuesdays, and Saturdays. Previous level of function was modified independent to independent with activities of daily living. Current level of function is minimum to moderate assistance of 1-2 depending on therapy, activity and time of day. Estimated length of stay is 14-16 days with discharge disposition to the home setting where he has supportive family and an accessible house. Medical prognosis is fair. Rehabilitation prognosis is fair. He has needs in all 3 disciplines as well as multiple medical comorbidities requiring acute daily medical care. The patient will participate in a low endurance protocol given his significant debility and dialysis schedule. Physical therapy will see the patient 60-90 minutes per day, 5 days per week, working on upper and lower body strength, balance, coordination, navigation, transfers and wheelchair mobility. Occupational therapy will work with the patient 60-90 minutes per day, 5 days per week, working on upper and lower body strength, balance, coordination, navigation, bathing, dressing, toileting. Speech and language pathology will work with the patient 30-90 minutes per day, 5 days per week, working on memory, cognition, social interaction. This is an overall plan of care, may change from time to time, we will team weekly and make changes to plan of care as needed. <ELECTRONICALLY SIGNED> By: Maria Elena Jean DO 05/10/18 1347 0941 [id number] Jean DO /nt
[2018-05-10 19:30] VITALS: BP 99/48
[2018-05-11 07:55] LABS: INR 2.7; PROTIME 27.4 Seconds (9.20-11.50)
[2018-05-11 08:00] VITALS: BP 109/52
[2018-05-11 08:25] VITALS: BP 109/52
[2018-05-11 20:05] VITALS: BP 114/51
[2018-05-12 07:00] VITALS: BP 73/28
[2018-05-12 08:03] VITALS: BP 73/28
[2018-05-12 10:33] LABS: INR 3.5; PROTIME 35.1 Seconds (9.20-11.50)
[2018-05-12 20:05] VITALS: BP 118/58
[2018-05-13 08:00] VITALS: BP 112/55
[2018-05-13 11:28] LABS: HEMATOCRIT 30.4 % (42.0-52.0); HEMOGLOBIN 9.7 gm/dL (14.0-18.0); MCH 29.9 pg (26.0-34.0); MCHC 31.8 g/dL (28.0-37.0); MPV 6.9 fl. (7.2-11.1); NUCLEATED RBCS 0 /100WBC; PLATELET COUNT* 233 thou/uL (150-400); RBC 3.23 mil/uL (4.50-6.00); RDW-CV 24.1 % (10.5-14.5); WBC 8.1 thou/uL (4.0-11.0)
[2018-05-13 11:31] LABS: INR 4.3; PROTIME 43.2 Seconds (9.20-11.50)
[2018-05-13 11:39] LABS: CALCIUM 8.6 mg/dL (8.5-10.1); CREATININE 3.7 mg/dL (0.6-1.3); POTASSIUM 4.2 mmol/L (3.5-5.1)
[2018-05-13 12:43] LABS: ABSOLUTE BASOPHILS 0.2 thou/uL (0.0-0.2); ABSOLUTE EOSINOPHILS 0.1 thou/uL (0.0-0.7); ABSOLUTE LYMPHOCYTES 0.6 thou/uL (0.8-5.3); ABSOLUTE MONOCYTES 0.4 thou/uL (0.0-1.2); ABSOLUTE NEUTROPHILS 6.8 thou/uL (1.6-8.1)
[2018-05-13 12:45] LABS: ANISOCYTOSIS 2+; PLATELET ESTIMATE ADEQUATE; POIKILOCYTOSIS Occasional
[2018-05-13 20:00] VITALS: BP 113/58
[2018-05-14 07:55] VITALS: BP 109/49
[2018-05-14 13:52] LABS: INR 3.1; PROTIME 31.1 Seconds (9.20-11.50)
[2018-05-14 14:12] LABS: % SATURATION 29 % (20-39); IRON 77 ug/dL (50-175)
[2018-05-14 19:00] VITALS: BP 114/58
[2018-05-15 07:15] VITALS: BP 140/57
[2018-05-15 07:26] LABS: INR 2.9; PROTIME 29.3 Seconds (9.20-11.50)
[2018-05-15 19:30] VITALS: BP 118/66
[2018-05-16 07:22] LABS: INR 2.1; PROTIME 21.1 Seconds (9.20-11.50)
[2018-05-16 08:26] VITALS: BP 123/72
[2018-05-16 08:30] VITALS: BP 123/72
[2018-05-16 19:20] VITALS: BP 113/52
[2018-05-17 08:00] VITALS: BP 126/63
[2018-05-17 20:12] VITALS: BP 105/57
[2018-05-18 01:52] VITALS: BP 105/57
[2018-05-18 07:30] VITALS: BP 99/54
[2018-05-18 09:20] LABS: INR 2.3; PROTIME 23.4 Seconds (9.20-11.50)
--- NOTE | 2018-05-18 13:19 | H ---
[place] [address] HISTORY AND PHYSICAL Name: NIKKOKEVIN F Room: [address] IN ..#: [id number] Admission: 05/03/18 Attend Phys: Maria Elena Jean DO Discharge: Date of : 32 Report #: [id number] THIS REPORT FOR: //name// CC: Maria Elena Keys DATE OF SERVICE: 05/03/2018 HISTORY OF PRESENT ILLNESS: This is an 87-year-old male admitted to inpatient rehabilitation to facilitate safe discharge home, status post acute and complex hospitalization from a nonhealing ulcer over the right lower extremity. He was positive for Staph, progressed to gangrene, was started on vancomycin, developed acute renal failure, is now currently on dialysis Tuesdays, and Saturdays. Eventually, an above knee amputation was completed on 04/26/2018 due to ongoing infections, severe peripheral vascular disease. He has been working with physical and occupational therapy, is appropriate for acute inpatient rehabilitation and this was discussed with both him and his family. He does have some needs in speech and language pathology as well. There have been no significant changes since the preadmission screening. Previous level of function prior to this acute hospitalization was modified independent to independent with activities of daily living. Current level of function is minimum to moderate assistance of 1-2 depending on therapy, activity and time of day. Estimated length of stay is 14-16 days with discharge disposition to the home setting where he has supportive family and an accessible house. He does have multiple medical comorbidities requiring acute daily medical care including end-stage renal disease on dialysis, diabetes type 2, atrial fibrillation and anemia. ALLERGIES: BERYL INHIBITORS, LATEX, PENICILLINS. MEDICATIONS: Reviewed and reconciled by myself and are available in the MAR. SOCIAL HISTORY: Unchanged from previous. FAMILY HISTORY: Unchanged from previous. REVIEW OF SYSTEMS: A 14-point review of systems is done and is negative except as mentioned in HPI, specifically no fever, chest pain, shortness of breath, abdominal pain or distention. PHYSICAL EXAMINATION: GENERAL: Alert and oriented, no apparent distress, up in the chair, no family but a friend is at the bedside. EARS, EYES, NOSE, THROAT: PERRLA and EOMI. EXTREMITIES: Nontender. Incision is not visualized at this time as [place] [address] HISTORY AND PHYSICAL Name: KEVIN EL Room: [address]#: [id number] Admission: 05/03/18 Attend Phys: Maria Elena Jean DO Discharge: Date of : 32 Report #: [id number] NEUROLOGIC: Cranial nerves 2-12 are grossly intact. PSYCHIATRIC: He has normal mood and affect. SKIN: Warm and dry. No rashes or lesions noted. ASSESSMENT: 1. Recent right above knee amputation due to nonhealing gangrenous lower extremity. 2. Acute renal failure, on dialysis Tuesday, and Tuesday. 3. Debility with alterations in activities of daily living from previously moderate independent to modified independent. PLAN: 1. PT, OT, speech, language, case management, nursing and HIMS to make evaluations and recommendations. 2. Low endurance protocol given dialysis and prolonged hospitalization. 3. Nonweightbearing on the right lower extremity. 4. We will consult the wound nurse Nephrology for dialysis and vascular if needed. Plan of care is pending and we will team him weekly. <ELECTRONICALLY SIGNED> By: Maria Elena Jean DO 05/18/18 1319 0938 [id number] Elena Jean DO /nt
[2018-05-18 20:04] VITALS: BP 112/52
[2018-05-19 08:23] VITALS: BP 129/56
[2018-05-19 20:00] VITALS: BP 102/55
[2018-05-20 08:00] VITALS: BP 107/47
[2018-05-20 08:47] LABS: HEMOGLOBIN 9.2 gm/dL (14.0-18.0)
[2018-05-20 08:48] LABS: ABSOLUTE NEUTROPHILS 4.2 thou/uL (1.6-8.1)
[2018-05-20 08:51] LABS: CALCIUM 7.9 mg/dL (8.5-10.1); CREATININE 3.4 mg/dL (0.6-1.3); POTASSIUM 3.9 mmol/L (3.5-5.1)
[2018-05-20 08:52] LABS: INR 3.4; PROTIME 34.7 Seconds (9.20-11.50)
[2018-05-20 08:53] LABS: ABSOLUTE BASOPHILS 0.1 thou/uL (0.0-0.2); ABSOLUTE EOSINOPHILS 0.4 thou/uL (0.0-0.7); ABSOLUTE LYMPHOCYTES 0.7 thou/uL (0.8-5.3); ABSOLUTE MONOCYTES 0.6 thou/uL (0.0-1.2); BASOPHILS 0.9 %; EOSINOPHILS 7.1 %; HEMATOCRIT 28.5 % (42.0-52.0); LYMPHOCYTES 11.5 %; MCH 30.7 pg (26.0-34.0); MCHC 32.3 g/dL (28.0-37.0); MONOCYTES 10.4 %; MPV 7.4 fl. (7.2-11.1); NUCLEATED RBCS 0 /100WBC; PLATELET COUNT* 157 thou/uL (150-400); POLYS 70.1 %; RDW-CV 22.2 % (10.5-14.5)
[2018-05-20 09:15] LABS: POLYCHROMASIA 1+
[2018-05-20 09:16] LABS: ANISOCYTOSIS 2+; HYPOCHROMASIA 2+; MACROCYTES 2+; PLATELET ESTIMATE ADEQUATE
[2018-05-20 20:57] VITALS: BP 113/53
[2018-05-21 08:30] VITALS: BP 92/45
[2018-05-21 20:00] VITALS: BP 122/47
[2018-05-22 00:57] VITALS: BP 122/47
[2018-05-22] MEDS ORDERED: COUMADIN 1MG TAB1 M1 PO (01:15)
[2018-05-22] MEDS ORDERED: NEPHROCAPS SOFT1 CAP PO (01:52)
[2018-05-22] MEDS ORDERED: TYLENOL325 MG PO ×2 (01:59→13:30)
[2018-05-22] MEDS ORDERED: COZAAR 25 MG TA25 M2 PO (02:08)
[2018-05-22 08:00] VITALS: BP 118/52
[2018-05-22 08:57] LABS: INR 2.3; PROTIME 23.5 Seconds (9.20-11.50)
[2018-05-22 09:05] VITALS: BP 118/52
--- NOTE | 2018-06-12 10:19 | D ---
[facility] [address] [place] [address] DISCHARGE SUMMARY Name: KEVIN EL Room: [address] IN [facility].#: [id number] Admission: 05/03/18 Attend Phys: Maria Elena Jean DO Discharge: 05/22/18 Date of : 32 Report #: [id number] THIS REPORT FOR: //name// CC: Maria Elena Keys DATE OF SERVICE: 05/22/2018 DISCHARGE DIAGNOSES: Status post above-knee amputation with recent diagnosis of acute renal failure, on hemodialysis. DISCHARGE DISPOSITION: To skilled level of care for continued subacute rehabilitation. The patient did progress in therapies; however, did plateau, but needed continued therapies, but unable to discharge to the home setting due to his ongoing debility as well as higher level of care, not appropriate for family members to care for. He was maintained on low endurance protocol given dialysis and prolonged hospitalization and debility. He was also nonweightbearing on the right lower extremity. PLAN: 1. He will follow with vascular surgery within 1-2 weeks. 2. He will follow with primary care physician 1 week after discharge from subacute level of care. 3. Medications were reviewed and reconciled by myself and are available in the MAR. We will maintain the same diet. PHYSICAL EXAMINATION GENERAL: Alert, oriented, in no apparent distress. VITAL SIGNS: Reviewed and are stable. HEENT: Atraumatic, normocephalic. Pupils equal, round, reactive. ABDOMEN: Soft, nontender, nondistended. NEUROLOGIC: Cranial nerves 2-12 are grossly intact with no focal neuro deficits, 5/5 strength in bilateral upper and lower extremities. SKIN: Warm and dry. No rashes or lesions noted. Right above-knee amputation is noted. Wound is healing well. <ELECTRONICALLY SIGNED> By: Maria Elena Jean DO 06/12/18 1019 1622 1947Maria Elena Jean DO /nt
== END 2018-05-22 16:46 | DRG 299 ==
LOC: M.REH 14:02
PROVIDERS: Family Medicine; Internal Medicine; Internal Medicine Nephrology; ADMIT Physical Medicine & Rehabilitation
PROC: 5A1D70Z Performance of Urinary Filtration, Intermittent, Less than 6 Hours Per Day (ICD-10-PCS; principal; 2018-05-06)
PROC: 5A1D70Z Performance of Urinary Filtration, Intermittent, Less than 6 Hours Per Day (ICD-10-PCS; 2018-05-09)
PROC: 5A1D70Z Performance of Urinary Filtration, Intermittent, Less than 6 Hours Per Day (ICD-10-PCS; 2018-05-11)
PROC: 5A1D70Z Performance of Urinary Filtration, Intermittent, Less than 6 Hours Per Day (ICD-10-PCS; 2018-05-13)
PROC: 5A1D70Z Performance of Urinary Filtration, Intermittent, Less than 6 Hours Per Day (ICD-10-PCS; 2018-05-16)
PROC: 5A1D70Z Performance of Urinary Filtration, Intermittent, Less than 6 Hours Per Day (ICD-10-PCS; 2018-05-18)
PROC: 5A1D70Z Performance of Urinary Filtration, Intermittent, Less than 6 Hours Per Day (ICD-10-PCS; 2018-05-20)
DX: E11.52 Type 2 diabetes mellitus with diabetic peripheral angiopathy with gangrene (principal); N18.6 End stage renal disease; N17.9 Acute kidney failure, unspecified; L03.115 Cellulitis of right lower limb; I50.22 Chronic systolic (congestive) heart failure; R53.81 Other malaise; E11.22 Type 2 diabetes mellitus with diabetic chronic kidney disease; I25.10 Atherosclerotic heart disease of native coronary artery without angina pectoris; E78.5 Hyperlipidemia, unspecified; D50.9 Iron deficiency anemia, unspecified; E11.621 Type 2 diabetes mellitus with foot ulcer; E83.39 Other disorders of phosphorus metabolism; D63.1 Anemia in chronic kidney disease; L97.519 Non-pressure chronic ulcer of other part of right foot with unspecified severity; I95.9 Hypotension, unspecified; Z89.611 Acquired absence of right leg above knee; Z99.2 Dependence on renal dialysis; Z88.8 Allergy status to other drugs, medicaments and biological substances; Z91.040 Latex allergy status; Z88.0 Allergy status to penicillin; Z79.899 Other long term (current) drug therapy; Z79.82 Long term (current) use of aspirin; I25.2 Old myocardial infarction; Z95.0 Presence of cardiac pacemaker; Z95.2 Presence of prosthetic heart valve; Z95.5 Presence of coronary angioplasty implant and graft; Z89.422 Acquired absence of other left toe(s); Z79.01 Long term (current) use of anticoagulants; Z79.4 Long term (current) use of insulin; Z89.411 Acquired absence of right great toe; Z89.421 Acquired absence of other right toe(s); Z87.891 Personal history of nicotine dependence

== ENCOUNTER 2018-07-16 16:32 | Inpatient (IN) | payer MEDICARE ==
[~2018-07-16] VITALS: Ht 182.9 cm; Wt 62.1 kg
[~2018-07-16 16:32] MED LIST changes: +COZAAR 25 MG TA25 M2 PO; +EPOGEN10000 UNIT IV PUSH; +HYDRALAZINE 10M10 MG IV PUSH; +PROTONIX40 M1 PO; +THERAGRAN-M PR1 EAC1 PO; +TYLENOL325 MG PO
[2018-07-16 16:34] VITALS: BP 125/68
[2018-07-16 17:20] LABS: ABSOLUTE BASOPHILS 0.1 thou/uL (0.0-0.2); ABSOLUTE EOSINOPHILS 0.1 thou/uL (0.0-0.7); ABSOLUTE LYMPHOCYTES 0.9 thou/uL (0.8-5.3); ABSOLUTE MONOCYTES 0.5 thou/uL (0.0-1.2); ABSOLUTE NEUTROPHILS 3.8 thou/uL (1.6-8.1); BASOPHILS 1.2 %; EOSINOPHILS 1.2 %; LYMPHOCYTES 17.1 %; MCH 30.5 pg (26.0-34.0); MCHC 32.3 g/dL (28.0-37.0); MCV 94.5 fL (80.0-100.0); MPV 6.9 fl. (7.2-11.1); NUCLEATED RBCS 0 /100WBC; PLATELET COUNT* 140 thou/uL (150-400); POLYS 70.5 %; RDW-CV 21.7 % (10.5-14.5); WBC 5.5 thou/uL (4.0-11.0)
[2018-07-16 17:29] LABS: CALCIUM 8.2 mg/dL (8.5-10.1); CREATININE 2.2 mg/dL (0.6-1.3); POTASSIUM 3.5 mmol/L (3.5-5.1)
[2018-07-16 17:34] LABS: ALBUMIN 2.2 g/dL (3.4-5.0); MAGNESIUM 1.8 mg/dL (1.8-2.4); TOTAL BILIRUBIN 0.5 mg/dL (<0.1-1.0); TOTAL PROTEIN 5.6 g/dL (6.4-8.2)
[2018-07-16] MEDS ORDERED: EPOGEN10000 UNIT HEMODIALYS (17:44)
[2018-07-16] MEDS ORDERED: FENOFIBRATE160 MG PO (17:45)
[2018-07-16] MEDS ORDERED: FLOMAX0.4 MG PO (17:46)
[2018-07-16] MEDS ORDERED: RENVELA800 MG PO (17:46)
[2018-07-16] MEDS ORDERED: ATORVASTATIN CA40 MG PO (17:47)
[2018-07-16] MEDS ORDERED: IRON325 PO (17:47)
[2018-07-16] MEDS ORDERED: NEPHROCAPS SOFT1 CAP PO (17:47)
[2018-07-16] MEDS ORDERED: FISH OIL 1,001000 M2 PO (17:47)
[2018-07-16] MEDS ORDERED: NITROGLYCERIN0.4 MG SUBLING (17:48)
[2018-07-16] MEDS ORDERED: VITAMINC500 PO (17:48)
[2018-07-16] MEDS ORDERED: TOPROL XL25 MG PO (17:49)
[2018-07-16] MEDS ORDERED: ASPIR 8181 MG PO (17:58)
[2018-07-16] MEDS ORDERED: COZAAR 25 MG TA25 M2 PO (17:58)
[2018-07-16] MEDS ORDERED: MAPAP325 MG PO (17:58)
[2018-07-16] MEDS ORDERED: PROSCAR 5MG TABL5 MG PO (17:59)
[2018-07-16] MEDS ORDERED: HUMALOG100 UNIT/1 SUBQ (18:00)
[2018-07-16] MEDS ORDERED: REMERON15 MG PO (18:03)
[2018-07-16 18:04] LABS: ANISOCYTOSIS 2+
[2018-07-16] MEDS ORDERED: B12INJ IM (18:04)
[2018-07-16] MEDS ORDERED: COUMADIN 1MG TAB1 M1 PO (18:04)
[2018-07-16 18:36] LABS: URINE BILIRUBIN NEGATIVE (Negative); URINE BLOOD 1+ (Negative); URINE CLARITY CLEAR; URINE COLOR YELLOW; URINE GLUCOSE-RANDOM NEGATIVE (Negative); URINE KETONES NEGATIVE (Negative); URINE LEUKOCYTES-REFLEX 1+ (Negative); URINE NITRITE-REFLEX NEGATIVE (Negative); URINE PROTEIN 2+ (Negative); URINE SPECIFIC GRAVITY 1.015 (1.005-1.030); URINE UROBILINOGEN 0.2 E.U./dl (0.2-1.0)
[2018-07-16 18:45] LABS: CASTS None Seen /LPF (None Seen); CRYSTALS None Seen /LPF (None Seen); MUCUS 0-3 Light strn/LPF (None Seen); SQUAMOUS 0-3 Few /LPF (0-3); URINE RBC 3-10 Few /HPF (0-2); URINE WBC-REFLEX 6-15 Few /HPF (0-5)
--- NOTE | 2018-07-16 20:22 | NUR ---
REPORT GIVEN TO FLOOR NURSE AT THIS TIME. CEFTRIAXONE TAKEN UP WITH PATIENT FOR FLOOR NURSE TO GIVEN
[2018-07-16 20:35] VITALS: BP 124/56
--- NOTE | 2018-07-17 04:35 | NUR ---
pt arrived 07/16/18 at 2037 admitted to room 310, pt placed in bed and introduced to surroundings by pct, vital signs obtained, this nurse speaks to pts and daughter in law in the hallway as they are leaving for the night, information to complete admission received from pts , this nurse to see pt, pt is alert, hard of hearing, pt is reluctant and hesitant to answer questions, he appears to hear this nurse speaking but will not answer some questions, pt is orineted x3 he says he is here "because they made me come, they thought I needed to be here" he appears agitated, pt denies pain, lung sounds clear, wounds to LRE covered with xeroform, wounds documented and redressed, pt receives iv abx with no adverse effects noted, pt remains afebrile, resting quietly, bed in lowest position with call light within reach, bed alarm on
[2018-07-17 07:50] VITALS: BP 103/59
[2018-07-17 08:21] LABS: ABSOLUTE EOSINOPHILS 0.2 thou/uL (0.0-0.7); ABSOLUTE LYMPHOCYTES 0.8 thou/uL (0.8-5.3); ABSOLUTE MONOCYTES 0.5 thou/uL (0.0-1.2); ABSOLUTE NEUTROPHILS 3.1 thou/uL (1.6-8.1); BASOPHILS 0.9 %; EOSINOPHILS 3.7 %; HEMATOCRIT 31.9 % (42.0-52.0); HEMOGLOBIN 10.2 gm/dL (14.0-18.0); MCH 30.6 pg (26.0-34.0); MCHC 31.9 g/dL (28.0-37.0); MCV 95.9 fL (80.0-100.0); MONOCYTES 11.2 %; MPV 7.2 fl. (7.2-11.1); NUCLEATED RBCS 0 /100WBC; PLATELET COUNT* 116 thou/uL (150-400); POLYS 67.2 %; RBC 3.32 mil/uL (4.50-6.00); RDW-CV 21.6 % (10.5-14.5); WBC 4.6 thou/uL (4.0-11.0)
[2018-07-17 08:24] LABS: CALCIUM 7.9 mg/dL (8.5-10.1); CREATININE 2.5 mg/dL (0.6-1.3); MAGNESIUM 1.8 mg/dL (1.8-2.4); POTASSIUM 3.2 mmol/L (3.5-5.1)
[2018-07-17 08:28] LABS: INR 1.7; PROTIME 17.4 Seconds (9.20-11.50)
[2018-07-17 09:33] LABS: ANISOCYTOSIS 2+; PLATELET ESTIMATE ADEQUATE
[2018-07-17 09:47] LABS: ESR (SEDRATE) 22 mm/hr (0-20)
--- NOTE | 2018-07-17 14:14 | NUR ---
WOUND CARE NOTE: CONSULT RECEIVED FOR LEG AND TOE WOUNDS. PATIENT WELL KNOWN TO ME FROM PREVIOUS HOSPITAL STAY. PATIENT HAS A FULL THICKNESS TRAUMATIC WOUND TO LATERAL LEFT LEG. WOUND MEASURES 5X2X0.3. MOIST, YELLOW WOUND BED DRAINING SEROSANGUINEOUS DRAINAGE. THIAGO-WOUND INTACT. CLEANSED WITH WOUND CLEANSER, PATTED DRY. APPLIED AQUACEL AG AND COVERED WITH ABD. MULTIPLE SCABS JUST DISTAL TO LEFT KNEE. SOME ARE OPENED. AFTER CLEANSING, APPLIED VASELINE GAUZE. LEFT HALLUX WITH DRIED YELLOW ESCHAR MEASURING 1X2.5. NO S/S OF INFECTION. PAINTED WITH BETADINE. LEFT HEEL IS BOGGY AND RED WITH INTACT SCABS. EDUCATED PATIENT AND SPOUSE ON IMPORTANCE OF KEEPING HEEL OFF BED. HIGHLY RECOMMENDED OFFLOADING BOOTS BUT PATIENT ADEMENTLY REFUSES. FURTHER EDUCATED THAT IF HIS HEEL IS NOT OFFLOADED THAT HE HAS THE POTENTIAL OF DEVELOPING AN ULCERATION. PATIENT CONTINUES TO REFUSE OFFLOADING BOOTS. HOPE PATIENT WILL ALLOW FOR OFFLOADING WITH PILLOWS, BUT PATIENT WAS TAKEN TO ULTRASOUND. SPOKE WITH RN AND UPDATED ON PLAN OF CARE. RECOMMEND OFFLOAD HEEL WITH PILLOW TIGHT BLOOD GLUCOSE CONTROL DAILY DRESSING CHANGES FOLLOW UP IN WOUND CENTER UPON DISCHARGE
[2018-07-17 15:52] VITALS: BP 119/70
--- NOTE | 2018-07-17 17:19 | NUR ---
SW met with pt to complete initial assessment, introduce self, and SW role. Pt family had just left from visiting pt. Pt explained that he would really want to be able to dc home with but aware that he may still need more care than feasible at home for his . Plan for pt to be able to dc to [facility]; SW to continue to follow to assist with safe dc planning. Pt dialysis with [facility].
--- NOTE | 2018-07-17 18:05 | NUR ---
PATIENT HAS BEEN A/O X 4, SLIGHTLY FORGETFUL AT TIMES. PATIENT HAS DENIED PAIN. SEEN BY VASCULAR, NEPHROLOGY, AND WOUND CARE THIS SHIFT. DRESSING APPLIED TO LEFT LOWER LEG. PATIENT HAD ULTRASOUND OF LEFT LOWER LEG. PATIENT UP WITH MAX ASSIST THIS SHIFT TO [facility]. PATIENT TO HAVE DIALYSIS ON TUESDAY, AND PATIENT AWARE OF PLANS. PATIENT REPOSITIONED WHEN PATIENT ALLOWED. PATIENT EDUCATED ON IMPORTANCE OF ELEVATING HEEL OFF BED, REFUSED HEELMEDIX BOOT BUT DID ALLOW FOR NURSE TO ELEVATE HEEL ON PILLOW. MRSA SWAB PENDING. HOURLY ROUNDING COMPLETED. FALL PRECAUTIONS IN PLACE. CALL LIGHT WITHIN REACH. WILL CONTINUE WITH PLAN OF CARE.
[2018-07-17 20:30] VITALS: BP 96/52
[2018-07-18 04:30] LABS: HEMATOCRIT 34.4 % (42.0-52.0); HEMOGLOBIN 11.1 gm/dL (14.0-18.0); MCH 30.9 pg (26.0-34.0); MCHC 32.3 g/dL (28.0-37.0); MCV 95.5 fL (80.0-100.0); RBC 3.61 mil/uL (4.50-6.00); RDW-CV 22.4 % (10.5-14.5); WBC 5.1 thou/uL (4.0-11.0)
[2018-07-18 04:33] LABS: INR 1.5; PROTIME 15.1 Seconds (9.20-11.50)
[2018-07-18 04:36] LABS: CALCIUM 7.7 mg/dL (8.5-10.1); CREATININE 2.8 mg/dL (0.6-1.3); MAGNESIUM 1.9 mg/dL (1.8-2.4); POTASSIUM 3.4 mmol/L (3.5-5.1)
--- NOTE | 2018-07-18 05:58 | NUR ---
PT SLEPT MOST OF SHIFT. ASSESSMENT DOCUMENTED. MEDS GIVEN PER E-OCT. IV PATENT. PT REFUSED SEVERAL Q2T. NO REPORTS OF PAIN OR NAUSEA THIS SHIFT. DRESSING REMAIN C/D/I. WILL CONTINUE WITH PLAN OF CARE.
[2018-07-18 08:05] VITALS: BP 121/71
[2018-07-18 15:59] VITALS: BP 103/48
--- NOTE | 2018-07-18 17:34 | NUR ---
PATIENT HAS BEEN A/O, FORGETFUL AT TIMES. HAS DENIED PAIN. DRESSINGS TO LEFT LEG CHANGED AND TOES PAINTED WITH BETADINE. PATIENT HAD DIALYSIS THIS SHIFT, PLAN IS TO HAVE DIALYSIS ON TUESDAY DUE TO HOLIDAY ON TUESDAY. PATIENT HAD CTA RUNOFF OF LEFT LEG TDOAY. PATIENT CONTINUES ON IV ANTIBIOTICS. PATIENT TURNED EVERY 2 HOURS WHEN ALLOWED BY PATIENT. LEFT HEEL ELEVATED ON PILLOW WHILE IN BED. BLOOD SUGARS MONITORED. PATIENT'S AT BEDSIDE THIS SHIFT. IN CONTACT ISOLATION FOR MRSA. HOURLY ROUNDING COMPLETED. CALL LIGHT WITHIN REACH. WILL CONTINUE WITH PLAN OF CARE.
[2018-07-18 21:42] VITALS: BP 107/54
--- NOTE | 2018-07-19 05:33 | NUR ---
PT SLEPT MOST OF SHIFT. ASSESSMENT DOCUMENTED. MEDS GIVEN PER E-OCT. IV PATENT. NO REPORTS OF PAIN OR NAUSEA. DRESSING ON LEG C/D/I. WILL CONTINUE WITH PLAN OF CARE.
--- NOTE | 2018-07-19 05:49 | CON ---
[address] [address] CONSULTATION Name: NIKKOKEVIN F Room: [address] IN .R.#: [id number] Admission: 07/16/18 Attend Phys: Juancarlos Aguilera MD Discharge: Date of : 32 Report #: [id number] THIS REPORT FOR: //name// CC: Juancarlos Keys DATE OF SERVICE: 07/18/2018 ATTENDING PHYSICIAN: Dr. Juancarlos Aguilera, REASON FOR EVALUATION: Left lower extremity skin and soft tissue infection with leg wounds, likely secondarily infected as well. Positive surveillance for MRSA. HISTORY OF PRESENT ILLNESS: Chart reviewed, patient examined. This is an 87-year-old well known to myself, has diabetes mellitus, complicated by severe vasculopathy, has had previous ongoing issues of peripheral disease, has had a right lower extremity amputation, who is at a facility, is undergoing a thrice weekly hemodialysis as well. He developed ulceration in the lateral aspect of the mid portion of his left leg roughly 3-4 weeks ago, had been undergoing wound care, however, noted increasing inflammatory changes noted distally. There was a component of rubor, there is question of perhaps ischemic component as well. He was admitted and underwent imaging studies, which did show perfusion distally in the setting of previous occlusion with bypass. He was treated empirically with antimicrobials including ceftriaxone, vancomycin. The appearance of the leg has improved in terms of the redness as well as the swelling. Denies significant pain. ALLERGIES: INCLUDE LATEX, BERYL INHIBITORS, PENICILLINS. MEDICATIONS: Include cyanocobalamin, warfarin, vancomycin, mirtazapine, atorvastatin, tamsulosin, ceftriaxone, insulin, promethazine as needed, losartan, ascorbic acid, ferrous sulfate, fish oil, metoprolol, sevelamer. PAST MEDICAL HISTORY: Includes diabetes mellitus type 2, complicated by diffuse vasculopathy. Known coronary artery disease, peripheral vascular disease. Chronic renal failure, on dialysis. History of atrial fibrillation, pacemaker, aortic valve replacement, history of cardiomyopathy, congestive heart failure, previous right lower extremity amputation. SOCIAL HISTORY: Former smoker. No ethanol. FAMILY HISTORY: Noncontributory. REVIEW OF SYSTEMS: Otherwise unremarkable 10-point review of systems with the exception of the above. Denies any recent fevers or chills[place] [address] CONSULTATION Name: KEVIN EL Room: [address]#: [id number] Admission: 07/16/18 Attend Phys: Juancarlos Aguilera MD Discharge: Date of : 32 Report #: [id number] somewhat marginal. No pulmonary or gastrointestinal related complaints. PHYSICAL EXAMINATION: GENERAL: He appears chronically ill, undernourished. He is pleasant, cooperative. I think that he does have a degree of dementia and slow to respond often to questions, mild distress. VITAL SIGNS: Temperature 97.9, pulse 63, respirations 18, blood pressure is 96/52. HEENT: NECK: Supple. No oral lesions appreciated. No conjunctivitis. LUNGS: Diminished breath sounds. Few scattered crackles. HEART: Irregular. I do not appreciate murmur. ABDOMEN: Soft, nondistended, amputation on the right. EXTREMITIES: Left lower extremity has dry skin. It is somewhat pale. There are superficial ulcers laterally. A mild degree of inflammatory eruption noted. GENITOURINARY: Deferred. RECTAL: Deferred. LABORATORY DATA: Blood cultures sterile thus far. CBC: White count of 5.1, H and H 11.1 and 34.4, platelets of 128. Electrolytes: Sodium 141, potassium 3.4, chloride 104, bicarbonate is 29, anion gap of 8. BUN and creatinine 28 and 2.8. Free T4 of 2.0. MRSA surveillance was positive. Arterial ultrasound, occlusion of the left SFA and popliteal artery collateral branches, monophasic flow to the left ankle, both anterior and posterior tibial arteries. ASSESSMENT: Left lower extremity inflammatory eruption. I think it is likely multifactorial. There is a component of infection. He seems to have improved with initiation of the approach including antibiotics. We will continue with the vancomycin thrice weekly with dialysis for the next couple of weeks and can discontinue the ceftriaxone. Vascular evaluation in progress. He was encouraged to optimize his nutritional status, will go a long way into assisting his recovery. <ELECTRONICALLY SIGNED> By: Aidan Eaton MD 07/19/18 0549 1110 [id number] Eaton MD /nt
--- NOTE | 2018-07-19 07:40 | NUR ---
ASSUMED CARE OF PATIENT THIS AM. PATIENT'S ASSESSMENT COMPLETED PRIOR TO GOING TO DIALYSIS. PATIENT DENIES PAIN TO LEFT LEG. PATIENT TAKEN TO DIALYSIS BY BED WITH KEY RINGER. WILL CONTINUE WITH PLAN OF CARE.
[2018-07-19 08:00] VITALS: BP 140/71
[2018-07-19 08:12] LABS: HEMATOCRIT 29.8 % (42.0-52.0); HEMOGLOBIN 9.9 gm/dL (14.0-18.0); MCH 31.5 pg (26.0-34.0); MCHC 33.2 g/dL (28.0-37.0); MCV 94.8 fL (80.0-100.0); MPV 7.1 fl. (7.2-11.1); RBC 3.14 mil/uL (4.50-6.00); RDW-CV 22.1 % (10.5-14.5); WBC 5.5 thou/uL (4.0-11.0)
[2018-07-19 08:19] LABS: INR 1.6; PROTIME 16.5 Seconds (9.20-11.50)
[2018-07-19 08:51] LABS: CALCIUM 7.6 mg/dL (8.5-10.1); CREATININE 1.9 mg/dL (0.6-1.3); MAGNESIUM 1.7 mg/dL (1.8-2.4); POTASSIUM 3.4 mmol/L (3.5-5.1)
--- NOTE | 2018-07-19 11:29 | NUR ---
Nutrition: Consult for wt loss. Per [facility], wt has been stable since Apr 2018, 136#. H/o DM, Rt AKA, HD. Alb 2.2, prealb 14.2. Will get dialysis today. Pt was not in room at time of visit; 10:30. RX: B12, SSI, vanc. CHO controlled diet. RD ordered Ensure MAX for added protein. Mild risk.
--- NOTE | 2018-07-19 12:38 | NUR ---
PATIENT RETURNED FROM DIALYSIS. PATIENT'S BLOOD SUGAR NOTED TO BE 54, JUICE GIVEN AND RECHECKED BLOOD SUGAR NOW 80. PATIENT IN BAD MOOD AFTER RETURNING FROM DIALYSIS. PATIENT UPSET HE IS STILL AT HOSPITAL, REASSURANCE PROVIDED. PATIENT EXPLAINED THAT ORDERS NOTED FOR ENEMA, PATIENT REFUSED AT THIS TIME. PATIENT'S LEFT LOWER LEG WOUND CHANGED, LEFT HEEL ELEVATED. AT BEDSIDE.
--- NOTE | 2018-07-19 15:35 | NUR ---
AMANDA was informed of pt to dc today; pt now is LTC at [facility]. AMANDA called and spoke with Dora at [facility] who explained that they are unable to accept back today but would be able to accept pt tomorrow and scheduled transportation between 10:00 to 10:30 am. Transport is with [facility] [employer] so this could be on time or it could be a little later. AMANDA faxed referral info as well as dc orders/med list to [facility] ph [phone] fax [phone]. AMANDA called pt son and informed of dc plan by message; Frederic returned call and left AMANDA message that he was in agreement with plan.
--- NOTE | 2018-07-19 16:07 | NUR ---
PATIENT CONTINUES TO REFUSE THE TAP WATER ENEMA. DID ALLOW NURSE TO ATTEMPT TO DIGITALLY DISIMPACT PATIENT. PATIENT HAD SMALL BM ON BED PAD PRIOR TO ATTEMPT OF DISIMPACTION. PATIENT ALLOWED RN TO ATTEMPT TO DISIMPACT, THEN ASKED RN TO STOP. THIAGO-CARE PROVIDED AND PATIENT REFUSED TO TURN AT THIS TIME. LEFT LEG ELEVATED. REPORT GIVEN TO César ROWLAND RN WHO WILL BE ASSUMING CARE OF PATIENT.
[2018-07-19 16:11] VITALS: BP 123/58
--- NOTE | 2018-07-19 18:37 | NUR ---
ASSUMED CARE OF PATIENT AT 1630. PATIENT RESTING IN BED. PATIENT DENIES ANY PAIN. PATIENT HAD DIALYSIS THIS AM WITHOUT INCIDENT. PATIENT REFUSED DINNER THIS EVENING, ALTERNATIVE FOODS AND ENSURE OFFERED BUT REFUSED. DISCHAREG HELD DUE TO NO BED AVAILABILITY. PATIENT DENIES ANY NEEDS AT THIS TIME. CALL LIGHT WITHIN REACH. WILL CONTINUE TO MONITOR.
--- NOTE | 2018-07-20 06:04 | NUR ---
PT SLEPT ON AND OFF THIS SHIFT. ASSESSMENT DOCUMENTED. MEDS GIVEN PER E-MAR. IV PATENT. PT STATED DISCOMFORT IN HIS HANDS BUT REFUSED PAIN MEDICATION. PT REFUSED MOST REPOSTIONS. PT INCONTINENT OF STOOL AND URINE THIS SHIFT. PT STATES HE WANTS TO LEAVE. AROUND 0200 PT STARTED STATING THAT HE WANTS TO EAT BREAKFAST, PT REMINDED WHAT TIME BREAKFAST IS AND IS REFUSING ANY SNACKS THAT ARE OFFERED. WILL CONTINUE WITH PLAN OF CARE.
[2018-07-20 08:55] VITALS: BP 131/69
[2018-07-20 09:02] VITALS: BP 123/58
[2018-07-20 09:05] VITALS: BP 123/58
[2018-07-20] MEDS ORDERED: VANCOMYCIN500 MG/VIA IV (09:19)
[2018-07-20 09:20] VITALS: BP 123/58
--- NOTE | 2018-07-20 09:25 | NUR ---
PATIENT DISCHARGED TO [facility]. TRANSPORTATION ARRIVED 1 HOUR EARLY. COPY OF CHART AND DISCHARGE PAPERS GIVEN TO TRANSPORTER. PATIENT ASSITED WITH GETTING DRESSED, PACKED BELONGINGS. DRESSING CHANGED TO LEFT LEG AND PICTURES TAKEN. IV REMOVED. DIALYSIS LINE IN PLACE. REPORT CALLED BUT RECEIVING NURSE UNAVAILABLE, MESSAGE LEFT FOR RETURN CALL. PATIENT TAKEN BY WHEELCHAIR VAN AT THIS TIME.
--- NOTE | 2018-07-21 08:14 | NUR ---
CALL TO [facility] TO NOTIFY OF DC 07/20, SPOKE WITH ORA. FAXED DC INFO AND FLOW SHEETS TO HER ALSO
--- NOTE | 2018-07-21 10:12 | CON ---
[address] [address] CONSULTATION Name: KEVIN EL Room: [address]#: [id number] Admission: 07/16/18 Attend Phys: Juancarlos Aguilera MD Discharge: 07/20/18 Date of : 34 Report #: [id number] THIS REPORT FOR: //name// CC: Juancarlos Keys DATE OF SERVICE: 07/17/2018 CONSULTING PHYSICIAN: Dr. Aguilera. REASON FOR NEPHROLOGY CONSULTATION: End-stage renal disease for maintenance hemodialysis needs. REASON FOR ADMISSION: Left leg wound. HISTORY OF PRESENT ILLNESS: This is an 87-year-old male who has past medical history of end-stage renal disease who is on hemodialysis every Tuesday, and Tuesday. Lives in a long-term care facility after his right leg amputation back in March with history of peripheral vascular disease, came in because his left leg wound was not looking good. He had his dialysis on Tuesday. He does not make much urine. He has a right IJ dialysis catheter, which is a tunneled line. He does not have any urinary complaints. His is at his bedside. REVIEW OF SYSTEMS: As mentioned above, otherwise negative. He has no shortness of breath. ALLERGIES: BERYL INHIBITORS, LATEX ALLERGY AND PENICILLINS. PAST MEDICAL HISTORY: Includes history of diabetes type 2, end-stage renal disease, on hemodialysis, started on dialysis end of February of this year, history of atrial fibrillation, pacemaker, peripheral vascular disease, aortic valve replacement, sepsis, chronic systolic congestive heart failure with ejection fraction of 45%, coronary artery disease, has 3 coronary artery stents; fem-pop bypass on the left side, hyperlipidemia, osteomyelitis of ankle and foot, left toe amputation in 2014, right great toe and second toe amputation, right lower extremity amputation. PAST SURGICAL HISTORY: As above. FAMILY HISTORY: Not significant. SOCIAL HISTORY: He is in a long-term facility, does not smoke or drink alcohol or use illicit drugs. He has a supportive . HOME MEDICATIONS: Include erythropoietin, fenofibrate, sevelamer, tamsulosin, [place] [address] CONSULTATION Name: KEVIN EL Room: [address]#: [id number] Admission: 07/16/18 Attend Phys: Juancarlos Aguilera MD Discharge: 07/20/18 Date of : 34 Report #: [id number] ferrous sulfate, atorvastatin, B complex, nitroglycerin, ascorbic acid, metoprolol, acetaminophen, losartan, aspirin, finasteride, insulin lispro, mirtazapine, vitamin B12, warfarin, docosahexaenoic acid. PHYSICAL EXAMINATION: VITAL SIGNS: Blood pressure is 103/59, respiratory rate 16, pulse rate 64, temperature 36.6, pulse ox 94% on room air. GENERAL: He is awake and alert and oriented x 3. HEAD, EYES, EARS, NOSE AND THROAT: Mucous membranes are moist. NECK: There is no JVD. CHEST: Clear to auscultation anteriorly. No wheezing. Has a right IJ tunneled dialysis catheter, which is intact. No erythema or discharge around the site. CARDIOVASCULAR: S1, S2 normal. No murmurs heard. ABDOMEN: Soft, nondistended, nontender, bowel sounds present. EXTREMITIES: There is no lower extremity edema. Right above-knee amputation. NEUROLOGICAL FUNCTION: Gross neurological function intact. PSYCHOLOGICAL: Mood and affect seem to be normal. LABORATORY DATA: His hemoglobin is 10.2, potassium 3.2, sodium is 141 and CO2 is 31. White count was 4.6. Other labs are reviewed. IMAGING: Chest x-ray was reviewed. ASSESSMENT: 1. End-stage renal disease, on hemodialysis every Tuesday, , Tuesday. 2. Anemia of chronic kidney disease, hemoglobin 10.2, currently at goal. 3. Hypertension. Blood pressure is controlled. 4. Diabetes type 2. 5. Left leg wound, possible osteomyelitis, primary team is managing, the patient is on antibiotics in the form of vancomycin. PLAN: 1. We will dialyze him tomorrow and then again on Tuesday because of Thanksgiving schedule. 2. Mild hypokalemia, potassium is 3.2. We will replace with 10 mEq of potassium just once. 3. We will stop fenofibrate because of renal insufficiency. Thank you for the consultation and I will discuss the plan with the patient, the patient's family as well as the patient's nurse and will continue to follow along with you. <ELECTRONICALLY SIGNED> By: Elena Campoverde MD 07/21/18 [id number] Campoverde MD /nt
== END 2018-07-20 09:25 | DRG 602 ==
LOC: M.ERS 16:32 → M.3W 18:38 → M.TBA-ER 18:38 → M.3W 20:42
PROVIDERS: Personal Emergency Response Attendant; ADMIT Internal Medicine
PROC: 5A1D70Z Performance of Urinary Filtration, Intermittent, Less than 6 Hours Per Day (ICD-10-PCS; principal; 2018-07-18)
PROC: 5A1D70Z Performance of Urinary Filtration, Intermittent, Less than 6 Hours Per Day (ICD-10-PCS; 2018-07-19)
DX: L03.116 Cellulitis of left lower limb (principal); N18.6 End stage renal disease; I42.9 Cardiomyopathy, unspecified; I50.20 Unspecified systolic (congestive) heart failure; D68.59 Other primary thrombophilia; E44.0 Moderate protein-calorie malnutrition; M86.8X6 Other osteomyelitis, lower leg; Z68.1 Body mass index [BMI] 19.9 or less, adult; I13.2 Hypertensive heart and chronic kidney disease with heart failure and with stage 5 chronic kidney disease, or end stage renal disease; E11.69 Type 2 diabetes mellitus with other specified complication; I25.10 Atherosclerotic heart disease of native coronary artery without angina pectoris; E11.51 Type 2 diabetes mellitus with diabetic peripheral angiopathy without gangrene; E11.22 Type 2 diabetes mellitus with diabetic chronic kidney disease; E78.5 Hyperlipidemia, unspecified; D63.8 Anemia in other chronic diseases classified elsewhere; E87.6 Hypokalemia; K56.41 Fecal impaction; Z99.2 Dependence on renal dialysis; Z91.040 Latex allergy status; Z88.0 Allergy status to penicillin; Z87.891 Personal history of nicotine dependence; I25.2 Old myocardial infarction; Z89.422 Acquired absence of other left toe(s)

== ENCOUNTER → 2018-07-26 | Outpatient (CLI) | payer MEDICARE ==
[~2018-07-26] MED LIST changes: +EPOGEN10000 UNIT HEMODIALYS; +FLOMAX0.4 MG PO; +MAPAP325 MG PO; +REMERON15 MG PO; +VANCOMYCIN500 MG/VIA IV
== END ==
LOC: M.WC 08:30
DX: E11.622 Type 2 diabetes mellitus with other skin ulcer (principal); L97.821 Non-pressure chronic ulcer of other part of left lower leg limited to breakdown of skin; I70.243 Atherosclerosis of native arteries of left leg with ulceration of ankle; L97.321 Non-pressure chronic ulcer of left ankle limited to breakdown of skin; E11.621 Type 2 diabetes mellitus with foot ulcer; L97.521 Non-pressure chronic ulcer of other part of left foot limited to breakdown of skin; E11.51 Type 2 diabetes mellitus with diabetic peripheral angiopathy without gangrene; E78.5 Hyperlipidemia, unspecified; I11.0 Hypertensive heart disease with heart failure; I50.9 Heart failure, unspecified; I25.10 Atherosclerotic heart disease of native coronary artery without angina pectoris; Z89.611 Acquired absence of right leg above knee; Z79.4 Long term (current) use of insulin; Z79.82 Long term (current) use of aspirin; Z95.5 Presence of coronary angioplasty implant and graft; Z95.828 Presence of other vascular implants and grafts; Z89.422 Acquired absence of other left toe(s); Z95.0 Presence of cardiac pacemaker; Z95.4 Presence of other heart-valve replacement

== ENCOUNTER → 2018-08-23 | Outpatient (CLI) | payer MEDICARE | LOC: M.WC 01:50 | DX: E11.622 Type 2 diabetes mellitus with other skin ulcer (principal); I70.243 Atherosclerosis of native arteries of left leg with ulceration of ankle; L97.321 Non-pressure chronic ulcer of left ankle limited to breakdown of skin; E11.621 Type 2 diabetes mellitus with foot ulcer; L97.521 Non-pressure chronic ulcer of other part of left foot limited to breakdown of skin; I70.244 Atherosclerosis of native arteries of left leg with ulceration of heel and midfoot; L97.421 Non-pressure chronic ulcer of left heel and midfoot limited to breakdown of skin; L89.152 Pressure ulcer of sacral region, stage 2; L98.491 Non-pressure chronic ulcer of skin of other sites limited to breakdown of skin; E11.51 Type 2 diabetes mellitus with diabetic peripheral angiopathy without gangrene; E78.5 Hyperlipidemia, unspecified; I11.0 Hypertensive heart disease with heart failure; I50.9 Heart failure, unspecified; I25.10 Atherosclerotic heart disease of native coronary artery without angina pectoris; Z95.828 Presence of other vascular implants and grafts; Z89.422 Acquired absence of other left toe(s); Z89.411 Acquired absence of right great toe; Z89.421 Acquired absence of other right toe(s); Z95.0 Presence of cardiac pacemaker; Z95.4 Presence of other heart-valve replacement; Z95.5 Presence of coronary angioplasty implant and graft ==

== ENCOUNTER → 2018-09-06 | Outpatient (CLI) | payer MEDICARE | LOC: M.WC 09:00 | DX: E11.621 Type 2 diabetes mellitus with foot ulcer (principal); I70.244 Atherosclerosis of native arteries of left leg with ulceration of heel and midfoot; L97.421 Non-pressure chronic ulcer of left heel and midfoot limited to breakdown of skin; L97.521 Non-pressure chronic ulcer of other part of left foot limited to breakdown of skin; E11.622 Type 2 diabetes mellitus with other skin ulcer; L97.821 Non-pressure chronic ulcer of other part of left lower leg limited to breakdown of skin; I11.0 Hypertensive heart disease with heart failure; I50.9 Heart failure, unspecified; I25.10 Atherosclerotic heart disease of native coronary artery without angina pectoris; E78.5 Hyperlipidemia, unspecified ==

== ENCOUNTER → 2018-10-04 | Outpatient (CLI) | payer MEDICARE | LOC: M.WC 05:16 | DX: E11.621 Type 2 diabetes mellitus with foot ulcer (principal); L97.521 Non-pressure chronic ulcer of other part of left foot limited to breakdown of skin; I70.244 Atherosclerosis of native arteries of left leg with ulceration of heel and midfoot; L97.421 Non-pressure chronic ulcer of left heel and midfoot limited to breakdown of skin; E11.51 Type 2 diabetes mellitus with diabetic peripheral angiopathy without gangrene; E78.5 Hyperlipidemia, unspecified; I11.0 Hypertensive heart disease with heart failure; I50.9 Heart failure, unspecified; I25.10 Atherosclerotic heart disease of native coronary artery without angina pectoris; Z95.0 Presence of cardiac pacemaker; Z95.4 Presence of other heart-valve replacement; Z95.5 Presence of coronary angioplasty implant and graft; Z95.828 Presence of other vascular implants and grafts; Z89.611 Acquired absence of right leg above knee; Z89.422 Acquired absence of other left toe(s) ==

== ENCOUNTER → 2018-11-01 | Outpatient (CLI) | payer MEDICARE ==
[~2018-11-01] MED LIST changes: +CLARITIN10 M3; +DEPAKOTE ER250 MG PO; +FLONASE 0.05%50 MCG NASAL; +LEVAQUIN 750 M750 MG PO; +PREDNISONE 10 M10 MG PO
== END ==
LOC: M.WC 04:40
DX: E11.621 Type 2 diabetes mellitus with foot ulcer (principal); L97.521 Non-pressure chronic ulcer of other part of left foot limited to breakdown of skin; I70.244 Atherosclerosis of native arteries of left leg with ulceration of heel and midfoot; L97.421 Non-pressure chronic ulcer of left heel and midfoot limited to breakdown of skin; I70.243 Atherosclerosis of native arteries of left leg with ulceration of ankle; L97.321 Non-pressure chronic ulcer of left ankle limited to breakdown of skin; E11.51 Type 2 diabetes mellitus with diabetic peripheral angiopathy without gangrene; E78.5 Hyperlipidemia, unspecified; I11.0 Hypertensive heart disease with heart failure; I50.9 Heart failure, unspecified; I25.10 Atherosclerotic heart disease of native coronary artery without angina pectoris; Z95.828 Presence of other vascular implants and grafts; Z89.422 Acquired absence of other left toe(s); Z89.611 Acquired absence of right leg above knee; Z95.0 Presence of cardiac pacemaker; Z95.4 Presence of other heart-valve replacement; Z95.5 Presence of coronary angioplasty implant and graft

== ENCOUNTER → 2018-11-29 | Outpatient (CLI) | payer MEDICARE | LOC: M.WC 05:42 | DX: E11.621 Type 2 diabetes mellitus with foot ulcer (principal); L97.521 Non-pressure chronic ulcer of other part of left foot limited to breakdown of skin; I70.244 Atherosclerosis of native arteries of left leg with ulceration of heel and midfoot; L97.421 Non-pressure chronic ulcer of left heel and midfoot limited to breakdown of skin; E11.622 Type 2 diabetes mellitus with other skin ulcer; I70.243 Atherosclerosis of native arteries of left leg with ulceration of ankle; L97.321 Non-pressure chronic ulcer of left ankle limited to breakdown of skin; E11.51 Type 2 diabetes mellitus with diabetic peripheral angiopathy without gangrene; E78.5 Hyperlipidemia, unspecified; I11.0 Hypertensive heart disease with heart failure; I50.9 Heart failure, unspecified; I25.10 Atherosclerotic heart disease of native coronary artery without angina pectoris; Z89.611 Acquired absence of right leg above knee; Z95.828 Presence of other vascular implants and grafts; Z95.5 Presence of coronary angioplasty implant and graft; Z89.422 Acquired absence of other left toe(s); Z95.0 Presence of cardiac pacemaker; Z95.4 Presence of other heart-valve replacement ==